=== PATIENT | female | born 1985 | race Caucasian/White ===

== ENCOUNTER 2018-02-06 12:43 | Emergency (ER) | payer OTHER ==
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
[2018-02-06 14:34] LABS: Appearance,Urine Clear (Clear); Bilirubin,Urine 1+ (Negative); Blood,Urine Small (Negative); Color,Urine Yellow; Glucose,Urine (UA) Negative (Negative); Ketones,Urine 2+ (Negative); Leukocyte Esterase,Urine Negative (Negative); Mucus,Urine Many /hpf; Nitrite,Urine Negative (Negative); Protein,Urine 1+ (Negative); RBC,Urine 5 /hpf (0-5); Specific Gravity,Urine 1.028 (1.001-1.035); Squamous Epithelial Cell,Urine 1 /hpf (0-4); WBC,Urine 2 /hpf (0-5)
[2018-02-06 14:50] LABS: Amphetamine Screen,Urine Detected (NotDetected); Barbiturate Screen,Urine Not Detected (NotDetected); Benzodiazepines Screen,Urine Not Detected (NotDetected); Cocaine Screen,Urine Not Detected (NotDetected); Methadone Screen, Urine Not Detected (NotDetected); Opiate Screen,Urine Not Detected (NotDetected); Oxycodone Screen, Urine Not Detected (NotDetected); Phencyclidine Screen,Urine Not Detected (NotDetected); Tricyclic Antidepressant,Urine Not Detected (NotDetected); Urn Cannabinoid Scrn Detected (NotDetected)
[2018-02-06] MEDS ORDERED: LORazepam 1 MG TAB PO STA (17:58)
[2018-02-06 18:11] VITALS: TEMP 97.8
[2018-02-06 19:31] VITALS: BP 107/67; PULSE 85; RESP 16
== END 2018-02-06 21:37 ==
LOC: EC 12:43
DX: F32.9 Major depressive disorder, single episode, unspecified (principal); R45.851 Suicidal ideations; F41.9 Anxiety disorder, unspecified; Z88.2 Allergy status to sulfonamides
CPT/HCPCS: 80306; 81001; 81025; 82075; 99285

== ENCOUNTER 2018-07-15 13:05 | Inpatient (IN) | payer MEDICAID, OTHER ==
[2018-07-15] MEDS ORDERED: KETOROLAC 30 MG/ML 1 ML VIAL IM STA (13:44)
--- NOTE | 2018-07-15 14:13 | ED ---
Psych HPI - General Chief Complaint: Psychiatric Symptoms Stated Complaint: Mental health Time Seen by Provider: 07/15/18 13:16 Source: patient, RN notes reviewed, old records reviewed Mode of arrival: ambulatory - History of Present Illness Initial Comments: Patient is a 33-year-old female who presents emergency Department today with complaints of suicidal ideation. Patient has had increased depression. Patient reports that she plans to hang herself. She is mother of 2 children. She was seen by her counselor today and sent here for evaluation purchase complaint of a headache. She requested IM pain medication. - Related Data Home Medications Medication Instructions Recorded Confirmed ARIPiprazole [Abilify] 2 mg PO DAILY 07/15/18 07/15/18 Cholecalciferol [Vitamin D3] 5,000 unit PO DAILY 07/15/18 07/15/18 Escitalopram [Lexapro] 30 mg PO DAILY 07/15/18 07/15/18 Mirtazapine [Remeron] 7.5 mg PO HS 07/15/18 07/15/18 Ranitidine HCl [Zantac] 150 mg PO BID 07/15/18 07/15/18 Allergies Allergy/AdvReac Type Severity Reaction Status Date / Time Sulfa (Sulfonamide Allergy Severe Itching Verified 07/15/18 13:33 Antibiotics) Review of Systems ROS Statement: Those systems with pertinent positive or pertinent negative responses have been documented in the HPI. ROS Other: All systems not noted in ROS Statement are negative. Past Medical History Past Medical History: No Reported History History of Any Multi-Drug Resistant Organisms: None Reported Past Surgical History: Tubal Ligation Additional Past Surgical History / Comment(s): KNEE SURGERY Past Psychological History: Anxiety, Depression Smoking Status: Never smoker Past Alcohol Use History: Rare Past Drug Use History: Marijuana General Exam - General Exam Comments Initial Comments: 33-year-old female. Alert and oriented. No distress. General: Well appearing, well nourished, in no distress. Oriented x 3, normal mood and affect . Ambulating without difficulty. Skin: Good turgor, no rash, unusual bruising or prominent lesions Hair: Normal texture and distribution. HEENT: Head: Normocephalic, atraumatic, no visible or palpable masses, depressions, or scaring. Mouth: Mucous membranes moist, no mucosal lesions. Teeth/Gums: No obvious caries or periodontal disease. No gingival inflammation or significant resorption. Pharynx: Mucosa non-inflamed, no tonsillar hypertrophy or exudate Neck: Supple, without lesions, bruits, or adenopathy, thyroid non-enlarged and non-tender Heart: No cardiomegaly or thrills; regular rate and rhythm, no murmur or gallop Lungs: Clear to auscultation and percussion Abdomen: Bowel sounds normal, no tenderness, organomegaly, masses, or hernia Back: Spine normal without deformity or tenderness, no CVA tenderness Extremities: No amputations or deformities, cyanosis, edema or varicosities, peripheral pulses intact Musculoskeletal: Normal gait and station. No misalignment, asymmetry, crepitation, defects, tenderness, masses, effusions, decreased range of motion, instability, atrophy or abnormal strength or tone in the head, neck, spine, ribs, pelvis or extremities. Neurologic: CN 2-12 normal. Sensation to pain, touch, and proprioception normal. DTRs normal in upper and lower extremities. No pathologic reflexes. Psychiatric: Oriented X3, intact recent and remote memory, Patient has flat affect. Depressed. Patient has suicidal ideation. Plans to hang herself. Limitations: no limitations Course Vital Signs 07/15/18 13:08 Temperature 97.5 F L Pulse Rate 82 Respiratory 16 Rate Blood Pressure 110/63 O2 Sat by Pulse 98 Oximetry Medical Decision Making - Medical Decision Making Patient is a 33-year-old female presents emergency Department today with complaints of suicidal ideation. She also complained of a migraine-like headache. History of migraines. Was given IM Toradol and Zofran. Patient was cleared and evaluated by EPS. EPS stated the Patient should be admitted. She will be to psychiatric unit. - Lab Data Lab Results 07/15/18 Range/Units 13:56 Urine Opiates Screen Not Detected (NotDetected) Ur Oxycodone Screen Not Detected (NotDetected) Urine Methadone Screen Not Detected (NotDetected) Ur Propoxyphene Screen Not Detected (NotDetected) Ur Barbiturates Screen Not Detected (NotDetected) U Tricyclic Antidepress Not Detected (NotDetected) Ur Phencyclidine Scrn Not Detected (NotDetected) Ur Amphetamines Screen Not Detected (NotDetected) U Methamphetamines Scrn Not Detected (NotDetected) U Benzodiazepines Scrn Not Detected (NotDetected) Urine Cocaine Screen Not Detected (NotDetected) U Marijuana (THC) Screen Detected H (NotDetected) Disposition Clinical Impression: Suicidal thoughts Disposition: ADMITTED IP TO THIS HOSP Condition: Stable Is patient prescribed a controlled substance at d/c from ED?: No Referrals: [facility] [Primary Care Provider] - 1-2 days Time of Disposition: 17:26
[2018-07-15 14:33] LABS: Amphetamine Screen,Urine Not Detected (NotDetected); Barbiturate Screen,Urine Not Detected (NotDetected); Benzodiazepines Screen,Urine Not Detected (NotDetected); Cocaine Screen,Urine Not Detected (NotDetected); Methadone Screen, Urine Not Detected (NotDetected); Opiate Screen,Urine Not Detected (NotDetected); Oxycodone Screen, Urine Not Detected (NotDetected); Phencyclidine Screen,Urine Not Detected (NotDetected); Tricyclic Antidepressant,Urine Not Detected (NotDetected); Urn Cannabinoid Scrn Detected (NotDetected)
[2018-07-15] MEDS ORDERED: ACETAMINOPHEN TAB 500 MG TAB PO STA (14:44)
[2018-07-15] MEDS ORDERED: ONDANSETRON 4 MG/2 ML VIAL IVP STA (14:44)
[2018-07-15] MEDS ORDERED: ONDANSETRON ODT 4 MG TAB PO STA (14:50)
[2018-07-15 19:31] VITALS: BMI 27.2
[2018-07-15] MEDS ORDERED: ZIPRASIDONE 20 MG VIAL IM PRN (19:31)
[2018-07-15] MEDS ORDERED: MAGNESIUM HYDROXIDE 2,400 MG/10 ML CUP PO PRN (19:31)
[2018-07-15] MEDS ORDERED: MAG HYDROX/AL HYDROX/SIMETH 30 ML CUP PO PRN (19:31)
[2018-07-15] MEDS ORDERED: LORazepam 2 MG/ML INJ IM PRN (19:36)
[2018-07-15] MEDS: FAMOTIDINE 20 MG TAB PO SCH (20:58)
[2018-07-15] MEDS: LORazepam 1 MG TAB PO PRN (20:59)
--- NOTE | 2018-07-16 07:06 | P.MDCNMH ---
History of Present Illness H&P Date: 07/16/18 Chief Complaint: Suicidal ideation 33-year-old female with history of depression Patient denies any medical history, denies any active medical complaints at this time. She admits that she felt that her depression is not well controlled and was having suicidal ideation she was planning on hanging herself. She has tried other methods in the past. So she decided to voluntarily come to the hospital seeking help. She claims to be compliant with all her medications despite that she feels that her depression has been increasing recently. Otherwise she denies any homicidal ideation. She didn't try anything to hurt herself this time and I was only thoughts. She otherwise denies any fevers or chills chest pain or coughing shortness of breath nausea vomiting or abdominal pain. Review of Systems Pertinent positives as noted in HPI. All other systems were reviewed and are negative Past Medical History Past Medical History: No Reported History History of Any Multi-Drug Resistant Organisms: None Reported Past Surgical History: Tubal Ligation Additional Past Surgical History / Comment(s): KNEE SURGERY Past Anesthesia/Blood Transfusion Reactions: No Reported Reaction Past Psychological History: Anxiety, Depression Smoking Status: Never smoker Past Alcohol Use History: Rare Past Drug Use History: Marijuana Additional Drug Use History / Comment(s): 3-4 times daily Medications and Allergies Home Medications Medication Instructions Recorded Confirmed Type ARIPiprazole [Abilify] 2 mg PO DAILY 07/15/18 07/15/18 History Cholecalciferol [Vitamin D3] 5,000 unit PO DAILY 07/15/18 07/15/18 History Escitalopram [Lexapro] 30 mg PO DAILY 07/15/18 07/15/18 History Mirtazapine [Remeron] 7.5 mg PO HS 07/15/18 07/15/18 History Ranitidine HCl [Zantac] 150 mg PO BID 07/15/18 07/15/18 History Allergies Allergy/AdvReac Type Severity Reaction Status Date / Time Sulfa (Sulfonamide Allergy Severe Dyspnea Verified 07/15/18 19:52 Antibiotics) Physical Exam Vitals: Vital Signs Temp Pulse Pulse Resp BP BP Pulse Ox 07/15/18 19:17 97.1 F L 75 16 105/70 07/15/18 18:45 97.1 F L 75 16 105/70 07/15/18 18:35 98.0 F 74 16 94/59 98 07/15/18 13:08 97.5 F L 82 16 110/63 98 Constitutional: No acute distress, conversant, pleasant Eyes: Anicteric sclerae, moist conjunctiva, no lid-lag Pupils equal round reactive to light ENMT: NC/AT Oropharynx clear, no erythema, or exudates Neck: Supple, FROM, no masses, or JVD No carotid bruits No thyromegaly Lungs: Clear to auscultation Clear to percussion Normal respiratory effort, no accessory muscle use Cardiovascular: Heart regular in rate and rhythm, No murmurs, gallops, or rubs No peripheral edema Abdominal: Soft Nontender, no guarding, rebound or rigidity Abdomen moving with respiration Normoactive bowel sounds No hepatomegaly, No splenomegaly No palpable mass No abdominal wall hernia noted Skin: Normal temperature, tone, texture, turgor No induration No subcutaneous nodules No rash, lesions No ulcers Extremities: No digital cyanosis No clubbing Pedal pulses intact and symmetrical Radial pulses intact and symmetrical No calf tenderness Psychiatric: Alert and oriented to person, place and time Depressed affect fair judgment Neuro Muscles Strength 5/5 in all 4 extremities Sensation to light touch grossly present throughout Cranial nerves II-XII grossly intact No focal sensory deficits Lymphatics: no palpable cervical or supraclavicular , or inguinal lymph nodes Cranial Nerve Examination - Cranial Nerves Cranial Nerve II- Optic: Intact Cranial Nerve III- Oculomotor: Intact Cranial Nerve IV- Trochlear: Intact Cranial Nerve V- Trigeminal: Intact Cranial Nerve - Abducens: Intact Cranial Nerve VII- Facial: Intact Cranial Nerve VIII- Auditory: Intact Cranial Nerve IX- Glossopharyngeal: Intact Cranial Nerve X- Vagus: Intact Cranial Nerve XI- Accessory: Intact Cranial Nerve XII- Hypoglossal: Intact Results Labs: Abnormal Lab Results - Last 24 Hours (Table) 07/15/18 Range/Units 13:56 U Marijuana (THC) Screen Detected H (NotDetected) Assessment and Plan Assessment: 33 year old female presented voluntarily due to suicidal ideation and uncontrolled depression. she denies any medical history otherwise, denies any active medical complaints at this time. Plan: depression and suicidal ideation managment per psych follow up labs Thank you for allowing us to participate in the care of this patient. We will follow peripherally. Do not hesitate to contact us with questions. Someone can be reached from the [facility] hospitalist group at all hours of the day at [phone].
[2018-07-16 08:34] LABS: Basophils % (A) 1 %; Eosinophils # (A) 0.2 k/uL (0-0.7); Eosinophils % (A) 3 %; HGB 13.4 gm/dL (11.4-16.0); Lymphocytes # (A) 1.6 k/uL (1.0-4.8); Lymphocytes % (A) 24 %; MCH 29.8 pg (25.0-35.0); MCHC 31.8 g/dL (31.0-37.0); MCV 93.8 fL (80.0-100.0); Mean Platelet Volume 7.5; Monocytes # (A) 0.4 k/uL (0-1.0); Monocytes % (A) 5 %; Neutrophils # (A) 4.5 k/uL (1.3-7.7); Neutrophils % (A) 67 %; Platelet Count 231 k/uL (150-450); RBC 4.48 m/uL (3.80-5.40); RDW 13.7 % (11.5-15.5); WBC 6.8 k/uL (3.8-10.6)
[2018-07-16] MEDS: ARIPiprazole 2 MG TAB PO SCH (08:51)
[2018-07-16] MEDS: FAMOTIDINE 20 MG TAB PO SCH ×2 (08:51→20:03)
[2018-07-16 08:56] LABS: ALT 20 U/L (9-52); AST 19 U/L (14-36); Albumin 3.7 g/dL (3.5-5.0); Alkaline Phosphatase 60 U/L (38-126); Anion Gap 6 mmol/L; Blood Urea Nitrogen 9 mg/dL (7-17); Calcium 9.5 mg/dL (8.4-10.2); Carbon Dioxide 26 mmol/L (22-30); Chloride 109 mmol/L (98-107); Cholesterol 151 mg/dL (<200); Glucose 88 mg/dL (74-99); HDL Cholesterol 44 mg/dL (40-60); LDL Cholesterol,Calculated 86 mg/dL (0-99); Potassium 4.5 mmol/L (3.5-5.1); Sodium 141 mmol/L (137-145); Total Bilirubin 0.6 mg/dL (0.2-1.3); Total Protein 6.8 g/dL (6.3-8.2); Triglycerides 105 mg/dL (<150)
[2018-07-16] MEDS ORDERED: ESCITALOPRAM 20 MG TAB PO SCH (09:00)
--- NOTE | 2018-07-16 12:09 | P.HP ---
Psychiatric H&P - . H&P Date: 07/16/18 History & Physical: Allergies Allergy/AdvReac Type Severity Reaction Status Date / Time Sulfa (Sulfonamide Allergy Severe Dyspnea Verified 07/15/18 19:52 Antibiotics) Vital Signs Temp 98.1 F 07/16/18 06:29 Pulse 92 07/16/18 06:29 Resp 16 07/16/18 06:29 BP 99/55 07/16/18 06:29 Pulse Ox 98 07/15/18 18:35 Intake & Output 07/15/18 07/16/18 07/16/18 18:59 06:59 18:59 Weight 63.503 kg Laboratory Last Values WBC 6.8 k/uL (3.8-10.6) 07/16/18 07:50 RBC 4.48 m/uL (3.80-5.40) 07/16/18 07:50 Hgb 13.4 gm/dL (11.4-16.0) 07/16/18 07:50 Hct 42.0 % (34.0-46.0) 07/16/18 07:50 MCV 93.8 fL (80.0-100.0) 07/16/18 07:50 MCH 29.8 pg (25.0-35.0) 07/16/18 07:50 MCHC 31.8 g/dL (31.0-37.0) 07/16/18 07:50 RDW 13.7 % (11.5-15.5) 07/16/18 07:50 Plt Count 231 k/uL (150-450) 07/16/18 07:50 Neutrophils % 67 % 07/16/18 07:50 Lymphocytes % 24 % 07/16/18 07:50 Monocytes % 5 % 07/16/18 07:50 Eosinophils % 3 % 07/16/18 07:50 Basophils % 1 % 07/16/18 07:50 Neutrophils # 4.5 k/uL (1.3-7.7) 07/16/18 07:50 Lymphocytes # 1.6 k/uL (1.0-4.8) 07/16/18 07:50 Monocytes # 0.4 k/uL (0-1.0) 07/16/18 07:50 Eosinophils # 0.2 k/uL (0-0.7) 07/16/18 07:50 Basophils # 0.0 k/uL (0-0.2) 07/16/18 07:50 Sodium 141 mmol/L (137-145) 07/16/18 07:50 Potassium 4.5 mmol/L (3.5-5.1) 07/16/18 07:50 Chloride 109 mmol/L (98-107) H 07/16/18 07:50 Carbon Dioxide 26 mmol/L (22-30) 07/16/18 07:50 Anion Gap 6 mmol/L 07/16/18 07:50 BUN 9 mg/dL (7-17) 07/16/18 07:50 Creatinine 0.84 mg/dL (0.52-1.04) 07/16/18 07:50 Est GFR (CKD-EPI)AfAm >90 (>60 ml/min/1.73 sqM) 07/16/18 07:50 Est GFR (CKD-EPI)NonAf >90 (>60 ml/min/1.73 sqM) 07/16/18 07:50 Glucose 88 mg/dL (74-99) 07/16/18 07:50 Calcium 9.5 mg/dL (8.4-10.2) 07/16/18 07:50 Total Bilirubin 0.6 mg/dL (0.2-1.3) 07/16/18 07:50 AST 19 U/L (14-36) 07/16/18 07:50 ALT 20 U/L (9-52) 07/16/18 07:50 Alkaline Phosphatase 60 U/L (38-126) 07/16/18 07:50 Total Protein 6.8 g/dL (6.3-8.2) 07/16/18 07:50 Albumin 3.7 g/dL (3.5-5.0) 07/16/18 07:50 Triglycerides 105 mg/dL (<150) 07/16/18 07:50 Cholesterol 151 mg/dL (<200) 07/16/18 07:50 LDL Cholesterol, Calc 86 mg/dL (0-99) 07/16/18 07:50 HDL Cholesterol 44 mg/dL (40-60) 07/16/18 07:50 TSH 1.770 mIU/L (0.465-4.680) 07/16/18 07:50 Urine Opiates Screen Not Detected (NotDetected) 07/15/18 13:56 Ur Oxycodone Screen Not Detected (NotDetected) 07/15/18 13:56 Urine Methadone Screen Not Detected (NotDetected) 07/15/18 13:56 Ur Propoxyphene Screen Not Detected (NotDetected) 07/15/18 13:56 Ur Barbiturates Screen Not Detected (NotDetected) 07/15/18 13:56 U Tricyclic Antidepress Not Detected (NotDetected) 07/15/18 13:56 Ur Phencyclidine Scrn Not Detected (NotDetected) 07/15/18 13:56 Ur Amphetamines Screen Not Detected (NotDetected) 07/15/18 13:56 U Methamphetamines Scrn Not Detected (NotDetected) 07/15/18 13:56 U Benzodiazepines Scrn Not Detected (NotDetected) 07/15/18 13:56 Urine Cocaine Screen Not Detected (NotDetected) 07/15/18 13:56 U Marijuana (THC) Screen Detected (NotDetected) H 07/15/18 13:56 Assessment and Plan Assessment: Patient is a 33-year-old female who presents emergency Department today with complaints of suicidal ideation. Patient has had increased depression. Patient reports that she plans to hang herself. She is mother of 2 children 9 yo/11yo. She was seen by her counselor today and sent here for evaluation purchase complaint of a headache. She requested IM pain medication. Pt presents stating she saw her counselor today who advised her to come in for evaluation. Pt does admit to feeling suicidal. pt states that she is here because of suicidal ideation. pt reports worsening suicidal ideation over the past 2-3 months. pt is tearful and reports guilt over not being able to perform parenting responsibilities with her worsening depression. pt had an appointment with Mirella her therapist at [facility] today and was recommended to come to ER after stating that she planned to hang herself pt reports that she thinks about hanging herself from her bedroom door with a belt almost daily and suicidal ideation has worsened in the last 2-3 months. pt reports loss of daily function due to lack of desire to get out of bed. pt states, "Most days I have to fight myself to get out of bed." pt also reports that she has been eating only once a day. - Related Data Home Medications Medication Instructions Recorded Confirmed ARIPiprazole [Abilify] 2 mg PO DAILY 07/15/18 07/15/18 Cholecalciferol [Vitamin D3] 5,000 unit PO DAILY 07/15/18 07/15/18 Escitalopram [Lexapro] 30 mg PO DAILY 07/15/18 07/15/18 Mirtazapine [Remeron] 7.5 mg PO HS 07/15/18 07/15/18 Ranitidine HCl [Zantac] 150 mg PO BID 07/15/18 07/15/18 Allergies Allergy/AdvReac Type Severity Reaction Status Date / Time Sulfa (Sulfonamide Allergy Severe Itching Verified 07/15/18 13:33 Antibiotics) Past Medical History Past Medical History: No Reported History History of Any Multi-Drug Resistant Organisms: None Reported Past Surgical History: Tubal Ligation Additional Past Surgical History / Comment(s): KNEE SURGERY Past Psychological History: Anxiety, Depression Smoking Status: Never smoker Past Alcohol Use History: Rare Past Drug Use History: Marijuana Musculoskeletal Examination - Abnormal/Involuntary Movements: [none Strength: [greater than antigravity (greater than/equal to 3/5) in all extremiti es, weakness:] Muscle Tone: [no impairment Gait: [grossly normal Station: [grossly normal Mental Status Examination - General Appearance: [casual, appears stated age Speech/Language: [spontaneous soft ] Attitude/Behavior: [guarded, withdrawn, indifferent] Mood: [ depressed, anxious, fearful, hopelessness] Affect: [flat, incongruent, blunted constricted] Orientation: [time, person, place situation] Thought Content: [wnl Risk Factors: [she is suicidal (ideations,with plan), and/or Homicidal (ideations, plan), other] Perception: [wnl (auditory, visual, tactile), other] Thought Processes: [ concrete, circumstantial Concentration/Attention Span: [impaired] [Per observation and interview with the patient] Recent Memory: [wnl 3 out of 3 in 3 minutes] Remote Memory: [wnl, ] [past events, as related history] Intelligence: [average] [based on history, based on vocabulary, syntax, grammar, and content] Judgement: [ fair] [per patient's behavior/history of present illness] Insight: [ fair] [understanding severity of illness/history of present illness] Admitting Diagnosis: [major depressive disorder-recurrent/severe with suicidal ideation] Patient Strengths - Steady employment/financial stability: [x] Housing stability: [x] Able to vocalize needs: [x] Values and traditions: [x] Patient Limitations: [medication, non-compliance,lack of social supports] Initial Plan of Care: [She was admitted on a formal voluntary to [address] [place] [address] unit at [facility]. She will be placed on 15 minute checks and usual protocol for the unit. A thorough biopsychosocial history of will be completed during her hospitalization. She will be evaluated by medicine, psychiatry, nursing staff, social work and occupational therapy. She is complaining that the antidepressants that she is used in the past have not been effective and she feels that she's been nonadherent to medical treatment p neris. We discussed the importance of medications and she has symptoms of major aggressive disorder with poor concentration and isolation her main issues. Therefore venlafaxine 37.5 mg XR will be used by mouth daily at bedtime with the titration to 225 mg or 300 mg by mouth daily at bedtime. She was taken off her Lexapro and no Remeron was added as well. In team will discuss disposition and discharge plans.] Estimated Length of Stay: [7 days] Initial Discharge Plan: [[facility] Prognosis: [fair] Justification for Inpatient Hospitalization - [ anxiety, depression resulting in significant loss of functioning.] [Dangerous to self, others, or property with need for controlled environment.] [Emotional or behavioral conditions and complications requiring 24 hour medical and nursing care.] [Need for special drug therapy, or other therapeutic program requiring continuous hospitalization.] [Failure of social or occupational functioning.] [Inability to meet basic life and health needs.] Time with Patient: Greater than 30
[2018-07-16] MEDS: CHOLECALCIFEROL 1,000 UNIT TAB PO SCH (12:25)
[2018-07-16] MEDS ORDERED: VENLAFAXINE HCL ER 37.5 MG CAP PO SCH (21:00)
[2018-07-16] MEDS: LORazepam 1 MG TAB PO PRN (22:45)
[2018-07-17] MEDS: ARIPiprazole 2 MG TAB PO SCH (08:28)
[2018-07-17] MEDS: FAMOTIDINE 20 MG TAB PO SCH ×2 (08:28→21:01)
--- NOTE | 2018-07-17 11:41 | P.PN ---
Subjective Progress Note Date: 07/17/18 Principal diagnosis: major depressive disorder-recurrent/severe with suicidal ideation 07/17/2018: Chart reviewed, discussed in team today, discussed with social work disposition discharge plans. Patient was interviewed in my office as she was walking down the hallway and she stated she had difficulty with sleep last night and felt better after she took a Ativan. Discussed other symptoms she may have which includes when she is trying down she has restless leg syndrome or feet or is going and she has difficult time on focusing to be able grossly. She has mild suicidal ideation today with no plan. She denies auditory or visual hallucinations. Objective - Vital Signs Vital signs: Vital Signs Temp 98.4 F 07/17/18 06:44 Pulse 72 07/17/18 06:44 Resp 16 07/17/18 06:44 BP 107/53 07/17/18 06:44 Pulse Ox 98 07/15/18 18:35 - Labs CBC & Chem 7: 07/16/18 07:50 07/16/18 07:50 Assessment and Plan Assessment: Patient is a 33-year-old female who presents emergency Department today with complaints of suicidal ideation. Patient has had increased depression. Patient reports that she plans to hang herself. She is mother of 2 children 9 yo/11yo. She was seen by her counselor today and sent here for evaluation purchase complaint of a headache. She requested IM pain medication. Pt presents stating she saw her counselor today who advised her to come in for evaluation. Pt does admit to feeling suicidal. pt states that she is here because of suicidal ideation. pt reports worsening suicidal ideation over the past 2-3 months. pt is tearful and reports guilt over not being able to perform parenting responsibilities with her worsening depression. pt had an appointment with Mirella her therapist at [facility] today and was recommended to come to ER after stating that she planned to hang herself pt reports that she thinks about hanging herself from her bedroom door with a belt almost daily and suicidal ideation has worsened in the last 2-3 months. pt reports loss of daily function due to lack of desire to get out of bed. pt states, "Most days I have to fight myself to get out of bed." pt also reports that she has been eating only once a day. - Related Data Home Medications Medication Instructions Recorded Confirmed ARIPiprazole [Abilify] 2 mg PO DAILY 07/15/18 07/15/18 Cholecalciferol [Vitamin D3] 5,000 unit PO DAILY 07/15/18 07/15/18 Escitalopram [Lexapro] 30 mg PO DAILY 07/15/18 07/15/18 Mirtazapine [Remeron] 7.5 mg PO HS 07/15/18 07/15/18 Ranitidine HCl [Zantac] 150 mg PO BID 07/15/18 07/15/18 Allergies Allergy/AdvReac Type Severity Reaction Status Date / Time Sulfa (Sulfonamide Allergy Severe Itching Verified 07/15/18 13:33 Antibiotics) Past Medical History Past Medical History: No Reported History History of Any Multi-Drug Resistant Organisms: None Reported Past Surgical History: Tubal Ligation Additional Past Surgical History / Comment(s): KNEE SURGERY Past Psychological History: Anxiety, Depression Smoking Status: Never smoker Past Alcohol Use History: Rare Past Drug Use History: Marijuana Musculoskeletal Examination - Abnormal/Involuntary Movements: [none Strength: [greater than antigravity (greater than/equal to 3/5) in all extremities, weakness:] Muscle Tone: [no impairment Gait: [grossly normal Station: [grossly normal Mental Status Examination - General Appearance: [casual, appears stated age Speech/Language: [spontaneous soft ] Attitude/Behavior: [guarded, withdrawn, indifferent] Mood: [ depressed, anxious, fearful, hopelessness] Affect: [flat, incongruent, blunted constricted] Orientation: [time, person, place situation] Thought Content: [wnl Risk Factors: [she is suicidal (ideations,with plan), and/or Homicidal (ideations, plan), other] Perception: [wnl (auditory, visual, tactile), other] Thought Processes: [ concrete, circumstantial Concentration/Attention Span: [impaired] [Per observation and interview with the patient] Recent Memory: [wnl 3 out of 3 in 3 minutes] Remote Memory: [wnl, ] [past events, as related history] Intelligence: [average] [based on history, based on vocabulary, syntax, grammar, and content] Judgement: [ fair] [per patient's behavior/history of present illness] Insight: [ fair] [understanding severity of illness/history of present illness] Admitting Diagnosis: [major depressive disorder-recurrent/severe with suicidal ideation] Patient Strengths - Steady employment/financial stability: [x] Housing stability: [x] Able to vocalize needs: [x] Values and traditions: [x] Patient Limitations: [medication, non-compliance,lack of social supports] Initial Plan of Care: [She was admitted on a formal voluntary to 3 [place] [facility] at [facility]. She will be placed on 15 minute checks and usual protocol for the unit. A thorough biopsychosocial history of will be completed during her hospitalization. She will be evaluated by medicine, psychiatry, nursing staff, social work and occupational therapy. She is complaining that the antidepressants that she is used in the past have not been effective and she feels that she's been nonadherent to medical treatment plan. We discussed the importance of medications and she has symptoms of major aggressive disorder with poor concentration and isolation her main issues. The refore venlafaxine 37.5 mg XR will be used by mouth daily at bedtime with the titration to 225 mg or 300 mg by mouth daily at bedtime. She was taken off her Lexapro and no Remeron was added as well. In team will discuss disposition and discharge plans. 07/17/2018: She still has symptoms of anxiety and depression and difficulty sleeping with multiple somatic complaints. We'll increase her Effexor from 37.5-75 mg XR by mouth daily at bedtime. We'll add Mirapex 0.5 mg by mouth daily at bedtime for restless leg syndrome. We'll maintain and Abilify 2 mg by mouth daily at bedtime. Continue doing 15 minute checks and encourage her to go to groups and be integrated [facility]. Environment] (1) Major depressive disorder with psychotic features Current Visit: Yes Status: Acute Priority: Medium Code(s): F32.3 - MAJOR DEPRESSV DISORD, SINGLE EPSD, SEVERE W PSYCH FEATURES SNOMED Code(s): 57808292 Time with Patient: Less than 30
[2018-07-17] MEDS: CHOLECALCIFEROL 1,000 UNIT TAB PO SCH (12:18)
[2018-07-17 13:03] LABS: Appearance,Urine Clear (Clear); Bilirubin,Urine Negative (Negative); Blood,Urine Negative (Negative); Color,Urine Light Yellow; Glucose,Urine (UA) Negative (Negative); Ketones,Urine Negative (Negative); Leukocyte Esterase,Urine Negative (Negative); Nitrite,Urine Negative (Negative); Protein,Urine Negative (Negative); Specific Gravity,Urine 1.011 (1.001-1.035); Urobilinogen,Urine <2.0 mg/dL (<2.0)
[2018-07-17 18:59] LABS: Urine Alcohol Negative (Negative); Urine Barbiturate Negative (Negative); Urine Cocaine Negative (Negative); Urine Methadone Negative (Negative); Urine Opiates Negative (Negative); Urine Phencyclidine Negative (Negative)
[2018-07-17] MEDS ORDERED: VENLAFAXINE HCL ER 75 MG CAP PO SCH (21:00)
[2018-07-17] MEDS: PRAMIPEXOLE 0.5 MG TAB PO SCH (21:01)
[2018-07-17] MEDS: ACETAMINOPHEN TAB 325 MG TAB PO PRN (23:38)
[2018-07-18] MEDS: FAMOTIDINE 20 MG TAB PO SCH ×2 (08:05→21:34)
[2018-07-18] MEDS: ARIPiprazole 2 MG TAB PO SCH (08:05)
--- NOTE | 2018-07-18 12:33 | P.PN ---
Subjective Progress Note Date: 07/18/18 Principal diagnosis: major depressive disorder-recurrent/severe with suicidal ideation 07/17/2018: Chart reviewed, discussed in team today, discussed with social work disposition discharge plans. Patient was interviewed in my office as she was walking down the hallway and she stated she had difficulty with sleep last night and felt better after she took a Ativan. Discussed other symptoms she may have which includes when she is trying down she has restless leg syndrome or feet or is going and she has difficult time on focusing to be able grossly. She has mild suicidal ideation today with no plan. She denies auditory or visual hallucinations. 07/18/2018: Chart reviewed and discussed in team today regarding progress and discharge plans. Patient was interviewed in my office and was walking down the hallway stated she had difficulty sleeping last night due to her roommate who snored and was changed to a different room. She states that she still has de pressive symptoms and still has restless leg syndrome and still remains anxious and fearful. She denies any auditory or visual hallucinations. She denies any current suicidal plan. Objective - Vital Signs Vital signs: Vital Signs Temp 98.9 F 07/18/18 03:34 Pulse 83 07/18/18 03:34 Resp 15 07/18/18 03:34 BP 115/78 07/18/18 03:34 Pulse Ox 98 07/15/18 18:35 - Labs CBC & Chem 7: 07/16/18 07:50 07/16/18 07:50 Labs: Abnormal Lab Results - Last 24 Hours (Table) 07/17/18 Range/Units 11:20 U Cannabinoids Screen Positive H (Negative) ng/mL Assessment and Plan Assessment: Patient is a 33-year-old female who presents emergency Department today with complaints of suicidal ideation. Patient has had increased depression. Patient reports that she plans to hang herself. She is mother of 2 children 9 yo/11yo. She was seen by her counselor today and sent here for evaluation purchase complaint of a headache. She requested IM pain medication. Pt presents stating she saw her counselor today who advised her to come in for evaluation. Pt does admit to feeling suicidal. pt states that she is here because of suicidal ideation. pt reports worsening suicidal ideation over the past 2-3 months. pt is tearful and reports guilt over not being able to perform parenting responsibilities with her worsening depression. pt had an appointment with Mirella daugherty therapist at [facility] today and was recommended to come to ER after stating that she planned to hang herself pt reports that she thinks about hanging herself from her bedroom door with a belt almost daily and suicidal ideation has worsened in the last 2-3 months. pt reports loss of daily function due to lack of desire to get out of bed. pt states, "Most days I have to fight myself to get out of bed." pt also reports that she has been eating only once a day. - Related Data Home Medications Medication Instructions Recorded Confirmed ARIPiprazole [Abilify] 2 mg PO DAILY 07/15/18 07/15/18 Cholecalciferol [Vitamin D3] 5,000 unit PO DAILY 07/15/18 07/15/18 Escitalopram [Lexapro] 30 mg PO DAILY 07/15/18 07/15/18 Mirtazapine [Remeron] 7.5 mg PO HS 07/15/18 07/15/18 Ranitidine HCl [Zantac] 150 mg PO BID 07/15/18 07/15/18 Allergies Allergy/AdvReac Type Severity Reaction Status Date / Time Sulfa (Sulfonamide Allergy Severe Itching Verified 07/15/18 13:33 Antibiotics) Past Medical History Past Medical History: No Reported History History of Any Multi-Drug Resistant Organisms: None Reported Past Surgical History: Tubal Ligation Additional Past Surgical History / Comment(s): KNEE SURGERY Past Psychological History: Anxiety, Depression Smoking Status: Never smoker Past Alcohol Use History: Rare Past Drug Use History: Marijuana Musculoskeletal Examination - Abnormal/Involuntary Movements: [none Strength: [greater than antigravity (greater than/equal to 3/5) in all extremities, weakness:] Muscle Tone: [no impairment Gait: [grossly normal Station: [grossly normal Mental Status Examination - General Appearance: [casual, appears stated age Speech/Language: [spontaneous soft ] Attitude/Behavior: [guarded, withdrawn, indifferent] Mood: [ depressed, anxious, fearful, hopelessness] Affect: [flat, incongruent, blunted constricted] Orientation: [time, person, place situation] Thought Content: [wnl Risk Factors: [she is suicidal (ideations,with plan), and/or Homicidal (ideations, plan), other] Perception: [wnl (auditory, visual, tactile), other] Thought Processes: [ concrete, circumstantial Concentration/Attention Span: [impaired] [Per observation and interview with the patient] Recent Memory: [wnl 3 out of 3 in 3 minutes] Remote Memory: [wnl, ] [past events, as related history] Intelligence: [average] [based on history, based on vocabulary, syntax, grammar, and content] Judgement: [ fair] [per patient's behavior/history of present illness] Insight: [ fair] [understanding severity of illness/history of present illness] Admitting Diagnosis: [major depressive disorder-recurrent/severe with suicidal ideation] Patient Strengths - Steady employment/financial stability: [x] Housing stability: [x] Able to vocalize needs: [x] Values and traditions: [x] Patient Limitations: [medication, non-compliance,lack of social supports] Initial Plan of Care: [She was admitted on a formal voluntary to [facility] unit at [facility]. She will be placed on 15 minute checks and usual protocol for the unit. A thorough biopsychosocial history of will be completed during her hospitalization. She will be evaluated by medicine, psychiatry, nursing staff, social work and occupational therapy. She is complaining that the antidepressants that she is used in the past have not been effective and she feels that she's been nonadherent to medical treatment plan. We discussed the importance of medications and she has symptoms of major aggressive disorder with poor concentration and isolation her main issues. Therefore venlafaxine 37.5 mg XR will be used by mouth daily at bedtime with the titration to 225 mg or 300 mg by mouth daily at bedtime. She was taken off her Lexapro and no Remeron was added as well. In team will discuss disposition and discharge plans. 07/17/2018: She still has symptoms of anxiety and depression and difficulty sleeping with multiple somatic complaints. We'll increase her Effexor from 37.5-75 mg XR by mouth daily at bedtime. We'll add Mirapex 0.5 mg by mouth daily at bedtime for restless leg syndrome. We'll maintain and Abilify 2 mg by mouth daily at bedtime. Continue doing 15 minute checks and encourage her to go to groups and be integrated [facility]. Environment 07/18/2018: She still has symptoms of anxiety and depression and difficulty with sleep and numerous somatic complaints which appeared to be fibromyalgia type pain. Increase her Effexor 150 mg XR and maintain Mirapex and Abilify at current level. She remains on 15 minute checks for suicide precaution usual protocol for mental health unit 3 [facility]] (1) Major depressive disorder with psychotic features Current Visit: Yes Status: Acute Priority: Medium Code(s): F32.3 - MAJOR DEPRESSV DISORD, SINGLE EPSD, SEVERE W PSYCH FEATURES SNOMED Code(s): 89390893 Time with Patient: Less than 30
[2018-07-18] MEDS: CHOLECALCIFEROL 1,000 UNIT TAB PO SCH (12:49)
[2018-07-18] MEDS: VENLAFAXINE HCL ER 150 MG CAP PO SCH (21:35)
[2018-07-18] MEDS: ACETAMINOPHEN TAB 325 MG TAB PO PRN (21:35)
[2018-07-18] MEDS: PRAMIPEXOLE 0.5 MG TAB PO SCH (22:23)
[2018-07-19] MEDS: FAMOTIDINE 20 MG TAB PO SCH ×2 (08:35→21:37)
[2018-07-19] MEDS: ARIPiprazole 2 MG TAB PO SCH (08:35)
[2018-07-19] MEDS: CHOLECALCIFEROL 1,000 UNIT TAB PO SCH (13:08)
--- NOTE | 2018-07-19 19:59 | P.PN ---
Subjective Progress Note Date: 07/19/18 Principal diagnosis: Major Depressive Disorder, severe recurrent Major Depressive Disorder, severe recurrent Found her in very depressed mood. Isolating and withdrawing. Reports feeling suicidal no. Feels safe on unit. Medication complaint and tolerating them well. Working on her coping skills. Denies hearing any voices or seeing things. Did sleep better last night MSE :AAOx 4. fair eye contact. Mood depressed. Has suicidal ideation. No psychoses. Insight and judgment improving Major Depression Will continue to adjust medications accordingly Objective - Vital Signs Vital signs: Vital Signs Temp 98.6 F 07/19/18 00:10 Pulse 76 07/19/18 00:10 Resp 14 07/19/18 00:10 BP 123/73 07/19/18 00:10 Pulse Ox 98 07/15/18 18:35 - Labs CBC & Chem 7: 07/16/18 07:50 07/16/18 07:50
[2018-07-19] MEDS: PRAMIPEXOLE 0.5 MG TAB PO SCH (21:37)
[2018-07-19] MEDS: VENLAFAXINE HCL ER 150 MG CAP PO SCH (21:37)
[2018-07-19] MEDS: ACETAMINOPHEN TAB 325 MG TAB PO PRN (21:39)
[2018-07-20] MEDS: LORazepam 1 MG TAB PO PRN (02:51)
[2018-07-20] MEDS: CHOLECALCIFEROL 1,000 UNIT TAB PO SCH (08:36)
[2018-07-20] MEDS: FAMOTIDINE 20 MG TAB PO SCH ×2 (08:36→21:00)
[2018-07-20] MEDS: ARIPiprazole 2 MG TAB PO SCH (08:36)
--- NOTE | 2018-07-20 12:02 | P.PN ---
Subjective Progress Note Date: 07/20/18 Principal diagnosis: Major Depressive Disorder, severe recurrent Major Depressive Disorder, severe recurrent Found her in her room. Easily aroused from sleep. Reports feeling tired and fatigued. Still very depressed and anxious. Reports feeling suicidal but Feels safe on unit. Medication complaint and tolerating them well. Working on her coping skills. Denies hearing any voices or seeing things. Did sleep better last night MSE :AAOx 4. fair eye contact. Mood depressed. Has suicidal ideation. No psychoses. Insight and judgment improving Major Depression Will continue to adjust medications accordingly Objective - Vital Signs Vital signs: Vital Signs Temp 97.8 F 07/20/18 02:45 Pulse 102 H 07/20/18 02:45 Resp 18 07/20/18 02:45 BP 116/65 07/20/18 02:45 Pulse Ox 98 07/15/18 18:35 Intake & Output 07/19/18 07/20/18 07/20/18 18:59 06:59 18:59 Weight 65.791 kg - Labs CBC & Chem 7: 07/16/18 07:50 07/16/18 07:50
[2018-07-20] MEDS: ACETAMINOPHEN TAB 325 MG TAB PO PRN (15:31)
[2018-07-20] MEDS: PRAMIPEXOLE 0.5 MG TAB PO SCH (21:00)
[2018-07-20] MEDS: VENLAFAXINE HCL ER 150 MG CAP PO SCH (21:00)
[2018-07-21] MEDS: FAMOTIDINE 20 MG TAB PO SCH ×2 (08:33→20:32)
[2018-07-21] MEDS: ARIPiprazole 2 MG TAB PO SCH (08:33)
[2018-07-21] MEDS: CHOLECALCIFEROL 1,000 UNIT TAB PO SCH (12:12)
--- NOTE | 2018-07-21 12:51 | P.PN ---
Subjective Progress Note Date: 07/21/18 Principal diagnosis: major depressive disorder-recurrent/severe with suicidal ideation 07/17/2018: Chart reviewed, discussed in team today, discussed with social work disposition discharge plans. Patient was interviewed in my office as she was walking down the hallway and she stated she had difficulty with sleep last night and felt better after she took a Ativan. Discussed other symptoms she may have which includes when she is trying down she has restless leg syndrome or feet or is going and she has difficult time on focusing to be able grossly. She has mild suicidal ideation today with no plan. She denies auditory or visual hallucinations. 07/18/2018: Chart reviewed and discussed in team today regarding progress and discharge plans. Patient was interviewed in my office and was walking down the hallway stated she had difficulty sleeping last night due to her roommate who snored and was changed to a different room. She states that she still has de pressive symptoms and still has restless leg syndrome and still remains anxious and fearful. She denies any auditory or visual hallucinations. She denies any current suicidal plan. 07/21/2008: Chart reviewed, discussed in team today, disposition discharge plans were evaluated. Patient was interviewed in my office was walking down the hallway stated that she had difficulty sleeping again last night and used Ativan. She also still has restless leg syndrome and still remains anxious but to a lesser degree. She also states that her depression has gotten better 2 out of 10. When discussing her fianc she becomes tearful as it relates to the loss of her father who stated he was done with her at age 11 and she has not had a relationship with him since in the last 22 years. Objective - Vital Signs Vital signs: Vital Signs Temp 97.7 F 07/21/18 05:57 Pulse 94 07/21/18 05:57 Resp 16 07/21/18 05:57 BP 110/72 07/21/18 05:57 Pulse Ox 98 07/15/18 18:35 Intake & Output 07/20/18 07/21/18 07/21/18 18:59 06:59 18:59 Weight 65.791 kg - Labs CBC & Chem 7: 07/16/18 07:50 07/16/18 07:50 Assessment and Plan Assessment: Patient is a 33-year-old female who presents emergency Department today with complaints of suicidal ideation. Patient has had increased depression. Patient reports that she plans to hang herself. She is mother of 2 children 9 yo/11yo. She was seen by her counselor today and sent here for evaluation purchase complaint of a headache. She requested IM pain medication. Pt presents stating she saw her counselor today who advised her to come in for evaluation. Pt does admit to feeling suicidal. pt states that she is here because of suicidal ideation. pt reports worsening suicidal ideation over the past 2-3 months. pt is tearful and reports guilt over not being able to perform parenting responsibilities with her worsening depression. pt had an appointment with Mirella daugherty therapist at [facility] today and was recommended to come to ER after stating that she planned to hang herself pt reports that she thinks about hanging herself from her bedroom door with a belt almost daily and suicidal ideation has worsened in the last 2-3 months. pt reports loss of daily function due to lack of desire to get out of bed. pt states, "Most days I have to fight myself to get out of bed." pt also reports that she has been eating only once a day. - Related Data Home Medications Medication Instructions Recorded Confirmed ARIPiprazole [Abilify] 2 mg PO DAILY 07/15/18 07/15/18 Cholecalciferol [Vitamin D3] 5,000 unit PO DAILY 07/15/18 07/15/18 Escitalopram [Lexapro] 30 mg PO DAILY 07/15/18 07/15/18 Mirtazapine [Remeron] 7.5 mg PO HS 07/15/18 07/15/18 Ranitidine HCl [Zantac] 150 mg PO BID 07/15/18 07/15/18 Allergies Allergy/AdvReac Type Severity Reaction Status Date / Time Sulfa (Sulfonamide Allergy Severe Itching Verified 07/15/18 13:33 Antibiotics) Past Medical History Past Medical History: No Reported History History of Any Multi-Drug Resistant Organisms: None Reported Past Surgical History: Tubal Ligation Additional Past Surgical History / Comment(s): KNEE SURGERY Past Psychological History: Anxiety, Depression Smoking Status: Never smoker Past Alcohol Use History: Rare Past Drug Use History: Marijuana Musculoskeletal Examination - Abnormal/Involuntary Movements: [none Strength: [greater than antigravity (greater than/equal to 3/5) in all extremities, weakness:] Muscle Tone: [no impairment Gait: [grossly normal Station: [grossly normal Mental Status Examination - General Appearance: [casual, appears stated age Speech/Language: [spontaneous soft ] Attitude/Behavior: [guarded, withdrawn, indifferent] Mood: [ depressed, anxious, fearful, hopelessness] Affect: [flat, incongruent, blunted constricted] Orientation: [time, person, place situation] Thought Content: [wnl Risk Factors: [she is suicidal (ideations,with plan), and/or Homicidal (ideations, plan), other] Perception: [wnl (auditory, visual, tactile), other] Thought Processes: [ concrete, circumstantial Concentration/Attention Span: [impaired] [Per observation and interview with the patient] Recent Memory: [wnl 3 out of 3 in 3 minutes] Remote Memory: [wnl, ] [past events, as related history] Intelligence: [average] [based on history, based on vocabulary, syntax, grammar, and content] Judgement: [ fair] [per patient's behavior/history of present illness] Insight: [ fair] [understanding severity of illness/history of present illness] Admitting Diagnosis: [major depressive disorder-recurrent/severe with suicidal ideation] Patient Strengths - Steady employment/financial stability: [x] Housing stability: [x] Able to vocalize needs: [x] Values and traditions: [x] Patient Limitations: [medication, non-compliance,lack of social supports] Initial Plan of Care: [She was admitted on a formal voluntary to 3 [facility] unit at [facility]. She will be placed on 15 minute checks and usual protocol for the unit. A thorough biopsychosocial history of will be completed during her hospitalization. She will be evaluated by medici ne, psychiatry, nursing staff, social work and occupational therapy. She is complaining that the antidepressants that she is used in the past have not been effective and she feels that she's been nonadherent to medical treatment plan. We discussed the importance of medications and she has symptoms of major aggressive disorder with poor concentration and isolation her main issues. Therefore venlafaxine 37.5 mg XR will be used by mouth daily at bedtime with the titration to 225 mg or 300 mg by mouth daily at bedtime. She was taken off her Lexapro and no Remeron was added as well. In team will discuss disposition and discharge plans. 07/17/2018: She still has symptoms of anxiety and depression and difficulty sleeping with multiple somatic complaints. We'll increase her Effexor from 37. 5-75 mg XR by mouth daily at bedtime. We'll add Mirapex 0.5 mg by mouth daily at bedtime for restless leg syndrome. We'll maintain and Abilify 2 mg by mouth daily at bedtime. Continue doing 15 minute checks and encourage her to go to groups and be integrated [facility]. Environment 07/18/2018: She still has symptoms of anxiety and depression and difficulty with sleep and numerous somatic complaints which appeared to be fibromyalgia type pain. Increase her Effexor 150 mg XR and maintain Mirapex and Abilify at current level. She remains on 15 minute checks for suicide precaution usual pr otocol for mental health unit 3 [facility] 07/21/2018: Today she was tearful and sad and crying regarding the relationship that she is lost with her father. I will increase her Effexor to 225 mg XR by mouth daily at bedtime and will increase her Mirapex to 1.5 mg by mouth daily at bedtime. She will remain on 15 minute checks and precautions as per protocol for mental health unit 3 [facility]] (1) Major depressive disorder with psychotic features Current Visit: Yes Status: Acute Priority: Medium Code(s): F32.3 - MAJOR DEPRESSV DISORD, SINGLE EPSD, SEVERE W PSYCH FEATURES SNOMED Code(s): 66775061 Time with Patient: Greater than 30
[2018-07-21] MEDS ORDERED: PRAMIPEXOLE 0.5 MG TAB PO SCH (21:00)
[2018-07-21] MEDS ORDERED: VENLAFAXINE HCL ER 75 MG CAP PO SCH (21:00)
[2018-07-22] MEDS: LORazepam 1 MG TAB PO PRN (01:06)
[2018-07-22 01:08] VITALS: BP 116/64; PULSE 127; RESP 14; TEMP 98.7
[2018-07-22] MEDS: FAMOTIDINE 20 MG TAB PO SCH (08:48)
[2018-07-22] MEDS: ARIPiprazole 2 MG TAB PO SCH (08:48)
--- NOTE | 2018-07-22 11:09 | P.DS ---
Providers Date of admission: 07/15/18 17:55 Expected date of discharge: 07/22/18 Attending physician: Jesse Rosenbaum DO Consults: 07/15/18 19:31 Consult Physician Routine Consulting Provider: Geovani Lewis Consult Reason/Comments: H&P and medical Do you want consulting provider notified?: Yes Primary care physician: [facility] Diagnosis(es) (1) Major depressive disorder with psychotic features Allergies Allergy/AdvReac Type Severity Reaction Status Date / Time Sulfa (Sulfonamide Allergy Severe Dyspnea Verified 07/15/18 19:52 Antibiotics) Vital Signs Temp 98.1 F 07/16/18 06:29 Pulse 92 07/16/18 06:29 Resp 16 07/16/18 06:29 BP 99/55 07/16/18 06:29 Pulse Ox 98 07/15/18 18:35 Intake & Output 07/15/18 07/16/18 07/16/18 18:59 06:59 18:59 Weight 63.503 kg Laboratory Last Values WBC 6.8 k/uL (3.8-10.6) 07/16/18 07:50 RBC 4.48 m/uL (3.80-5.40) 07/16/18 07:50 Hgb 13.4 gm/dL (11.4-16.0) 07/16/18 07:50 Hct 42.0 % (34.0-46.0) 07/16/18 07:50 MCV 93.8 fL (80.0-100.0) 07/16/18 07:50 MCH 29.8 pg (25.0-35.0) 07/16/18 07:50 MCHC 31.8 g/dL (31.0-37.0) 07/16/18 07:50 RDW 13.7 % (11.5-15.5) 07/16/18 07:50 Plt Count 231 k/uL (150-450) 07/16/18 07:50 Neutrophils % 67 % 07/16/18 07:50 Lymphocytes % 24 % 07/16/18 07:50 Monocytes % 5 % 07/16/18 07:50 Eosinophils % 3 % 07/16/18 07:50 Basophils % 1 % 07/16/18 07:50 Neutrophils # 4.5 k/uL (1.3-7.7) 07/16/18 07:50 Lymphocytes # 1.6 k/uL (1.0-4.8) 07/16/18 07:50 Monocytes # 0.4 k/uL (0-1.0) 07/16/18 07:50 Eosinophils # 0.2 k/uL (0-0.7) 07/16/18 07:50 Basophils # 0.0 k/uL (0-0.2) 07/16/18 07:50 Sodium 141 mmol/L (137-145) 07/16/18 07:50 Potassium 4.5 mmol/L (3.5-5.1) 07/16/18 07:50 Chloride 109 mmol/L (98-107) H 07/16/18 07:50 Carbon Dioxide 26 mmol/L (22-30) 07/16/18 07:50 Anion Gap 6 mmol/L 07/16/18 07:50 BUN 9 mg/dL (7-17) 07/16/18 07:50 Creatinine 0.84 mg/dL (0.52-1.04) 07/16/18 07:50 Est GFR (CKD-EPI)AfAm >90 (>60 ml/min/1.73 sqM) 07/16/18 07:50 Est GFR (CKD-EPI)NonAf >90 (>60 ml/min/1.73 sqM) 07/16/18 07:50 Glucose 88 mg/dL (74-99) 07/16/18 07:50 Calcium 9.5 mg/dL (8.4-10.2) 07/16/18 07:50 Total Bilirubin 0.6 mg/dL (0.2-1.3) 07/16/18 07:50 AST 19 U/L (14-36) 07/16/18 07:50 ALT 20 U/L (9-52) 07/16/18 07:50 Alkaline Phosphatase 60 U/L (38-126) 07/16/18 07:50 Total Protein 6.8 g/dL (6.3-8.2) 07/16/18 07:50 Albumin 3.7 g/dL (3.5-5.0) 07/16/18 07:50 Triglycerides 105 mg/dL (<150) 07/16/18 07:50 Cholesterol 151 mg/dL (<200) 07/16/18 07:50 LDL Cholesterol, Calc 86 mg/dL (0-99) 07/16/18 07:50 HDL Cholesterol 44 mg/dL (40-60) 07/16/18 07:50 TSH 1.770 mIU/L (0.465-4.680) 07/16/18 07:50 Urine Opiates Screen Not Detected (NotDetected) 07/15/18 13:56 Ur Oxycodone Screen Not Detected (NotDetected) 07/15/18 13:56 Urine Methadone Screen Not Detected (NotDetected) 07/15/18 13:56 Ur Propoxyphene Screen Not Detected (NotDetected) 07/15/18 13:56 Ur Barbiturates Screen Not Detected (NotDetected) 07/15/18 13:56 U Tricyclic Antidepress Not Detected (NotDetected) 07/15/18 13:56 Ur Phencyclidine Scrn Not Detected (NotDetected) 07/15/18 13:56 Ur Amphetamines Screen Not Detected (NotDetected) 07/15/18 13:56 U Methamphetamines Scrn Not Detected (NotDetected) 07/15/18 13:56 U Benzodiazepines Scrn Not Detected (NotDetected) 07/15/18 13:56 Urine Cocaine Screen Not Detected (NotDetected) 07/15/18 13:56 U Marijuana (THC) Screen Detected (NotDetected) H 07/15/18 13:56 Assessment and Plan Assessment: Patient is a 33-year-old female who presents emergency Department today with complaints of suicidal ideation. Patient has had increased depression. Patient reports that she plans to hang herself. She is mother of 2 children 9 yo/11yo. She was seen by her counselor today and sent here for evaluation purchase complaint of a headache. She requested IM pain medication. Pt presents stating she saw her counselor today who advised her to come in for evaluation. Pt does admit to feeling suicidal. pt states that she is here because of suicidal ideation. pt reports worsening suicidal ideation over the past 2-3 months. pt is tearful and reports guilt over not being able to perform parenting responsibilities with her worsening depression. pt had an appointment with Mirella her therapist at [facility] today and was recommended to come to ER after stating that she planned to hang herself pt reports that she thinks about hanging herself from her bedroom door with a belt almost daily and suicidal ideation has worsened in the last 2-3 months. pt reports loss of daily function due to lack of desire to get out of bed. pt states, "Most days I have to fight myself to get out of bed." pt also reports that she has been eating only once a day. - Related Data Home Medications Medication Instructions Recorded Confirmed ARIPiprazole [Abilify] 2 mg PO DAILY 07/15/18 07/15/18 Cholecalciferol [Vitamin D3] 5,000 unit PO DAILY 07/15/18 07/15/18 Escitalopram [Lexapro] 30 mg PO DAILY 07/15/18 07/15/18 Mirtazapine [Remeron] 7.5 mg PO HS 07/15/18 07/15/18 Ranitidine HCl [Zantac] 150 mg PO BID 07/15/18 07/15/18 Allergies Allergy/AdvReac Type Severity Reaction Status Date / Time Sulfa (Sulfonamide Allergy Severe Itching Verified 07/15/18 13:33 Antibiotics) Past Medical History Past Medical History: No Reported History History of Any Multi-Drug Resistant Organisms: None Reported Past Surgical History: Tubal Ligation Additional Past Surgical History / Comment(s): KNEE SURGERY Past Psychological History: Anxiety, Depression Smoking Status: Never smoker Past Alcohol Use History: Rare Past Drug Use History: Marijuana Mental Status Examination - General Appearance: [casual, appears stated age Speech/Language: [spontaneous soft ] Attitude/Behavior: [guarded, withdrawn, indifferent] Mood: [ depressed, anxious, fearful, hopelessness] Affect: [flat, incongruent, blunted constricted] Orientation: [time, person, place situation] Thought Content: [wnl Risk Factors: [she is suicidal (ideations,with plan), and/or Homicidal (ideati ons, plan), other] Perception: [wnl (auditory, visual, tactile), other] Thought Processes: [ concrete, circumstantial Concentration/Attention Span: [impaired] [Per observation and interview with the patient] Recent Memory: [wnl 3 out of 3 in 3 minutes] Remote Memory: [wnl, ] [past events, as related history] Intelligence: [average] [based on history, based on vocabulary, syntax, grammar, and content] Judgement: [ fair] [per patient's behavior/history of present illness] Insight: [ fair] [understanding severity of illness/history of present illness] Admitting Diagnosis: [major depressive disorder-recurrent/severe with suicidal ideation] Current Visit: Yes Status: Acute Priority: Low Hospital Course: Plan of Care: [She was admitted on a formal voluntary to [address] [place] [address] at [facility]. She will be placed on 15 minute checks and usual protocol for the unit. A thorough biopsychosocial history of will be completed during her hospitalization. She will be evaluated by medicine, psychiatry, nursing staff, social work and occupational therapy. She is complaining that the antidepressants that she is used in the past have not been effective and she feels that she's been nonadherent to medical treatment plan. We discussed the importance of medications and she has symptoms of major aggressive disorder with poor concentration and isolation her main issues. Therefore venlafaxine 37.5 mg XR will be used by mouth daily at bedtime with the titration to 225 mg or 300 mg by mouth daily at bedtime. She was taken off her Lexapro and no Remeron was added as well. In team will discuss disposition and discharge plans. 07/17/2018: She still has symptoms of anxiety and depression and difficulty sleeping with multiple somatic complaints. We'll increase her Effexor from 37.5-75 mg XR by mouth daily at bedtime. We'll add Mirapex 0.5 mg by mouth daily at bedtime for restless leg syndrome. We'll maintain and Abilify 2 mg by mouth daily at bedtime. Continue doing 15 minute checks and encourage her to go to groups and be integrated [facility] milieu. Environment 07/18/2018: She still has symptoms of anxiety and depression and difficulty with sleep and numerous somatic complaints which appeared to be fibromyalgia type pain. Increase her Effexor 150 mg XR and maintain Mirapex and Abilify at current level. She remains on 15 minute checks for suicide precaution usual protocol for mental health unit [address] [place] [address] 07/21/2018: Today she was tearful and sad and crying regarding the relationship that she is lost with her father. I will increase her Effexor to 225 mg XR by mouth daily at bedtime and will increase her Mirapex to 1.5 mg by mouth daily at bedtime. She will remain on 15 minute checks and precautions as per protocol for mental health unit [facility] Mental status examination time of discharge: The patient presents alert, pleasant, and cooperative. There calmly seated without any agitated behavior. [She] reports that [her] mood is good. Affect is congruent and euthymic. [She] deny having any suicidal or homicidal ideation intent or plan. [She] denies any auditory or visual hallucinations. There is no evidence of any delusional thought content. [Her] thought process is linear and goal-directed. [Her] speech is fluent and nonpressured. [Her] memory and concentration is grossly intact for the purposes of this session. ] Patient Condition at Discharge: Stable Plan - Discharge Summary Discharge Rx Participant: Yes New Discharge Prescriptions: New Venlafaxine HCl ER [Effexor XR] 225 mg PO 2100 30 Days #90 cap.er.24h Pramipexole [Mirapex] 1.5 mg PO 2100 30 Days #90 tab Continue Cholecalciferol [Vitamin D3] 5,000 unit PO DAILY ARIPiprazole [Abilify] 2 mg PO DAILY 30 Days #30 tab Discontinued Ranitidine HCl [Zantac] 150 mg PO BID Mirtazapine [Remeron] 7.5 mg PO HS Escitalopram [Lexapro] 30 mg PO DAILY Discharge Medication List Cholecalciferol [Vitamin D3] 5,000 unit PO DAILY 07/15/18 [History] ARIPiprazole [Abilify] 2 mg PO DAILY 30 Days #30 tab 07/22/18 [Rx] Pramipexole [Mirapex] 1.5 mg PO 2100 30 Days #90 tab 07/22/18 [Rx] Venlafaxine HCl ER [Effexor XR] 225 mg PO 2100 30 Days #90 cap.er.24h 07/22/18 [Rx] Follow up Appointment(s)/Referral(s): [facility] [Outside] - 07/22/18 4:45 pm (07-22-18 @ 4:45 with Mirella Peters 07-25-18 @ 8:00 with RAFAL Rich ) [facility] [Primary Care Provider] - 1-2 days Discharge Disposition: HOME SELF-CARE
== END 2018-07-22 13:10 | disposition home or self-care (01) | DRG 885 ==
LOC: EC 13:05 → 3MHU 17:55
PROVIDERS: ADMIT Psychiatry & Neurology Psychiatry; ATTEND Psychiatry & Neurology Psychiatry
DX: F33.3 Major depressive disorder, recurrent, severe with psychotic symptoms (principal); R45.851 Suicidal ideations; F41.9 Anxiety disorder, unspecified; G25.81 Restless legs syndrome; G43.909 Migraine, unspecified, not intractable, without status migrainosus; Z79.899 Other long term (current) drug therapy; Z88.2 Allergy status to sulfonamides
CPT/HCPCS: 80053; 80061; 80306; 81003; 81025; 82075; 83036; 84443; 85025; 96372; 99285

== ENCOUNTER 2018-09-16 13:31 | Inpatient (IN) | payer OTHER ==
[2018-09-16] MEDS ORDERED: ONDANSETRON 4 MG/2 ML VIAL IVP STA ×2 (13:57→19:34)
[2018-09-16] MEDS ORDERED: HYDROmorphone 0.5 MG/0.5 ML SYRINGE IVP STA (13:57)
[2018-09-16] MEDS ORDERED: SODIUM CHLORIDE 0.9% 1,000 ML IV ONE ×3 (14:02→15:22)
--- NOTE | 2018-09-16 14:19 | ED ---
General Adult HPI - General Chief complaint: Abdominal Pain Stated complaint: Vomiting Time Seen by Provider: 09/16/18 13:57 Source: patient, family, RN notes reviewed, old records reviewed Mode of arrival: ambulatory Limitations: altered mental status - History of Present Illness Initial comments: 33-year-old female presents with chief complaint of abdominal pain. History is difficult secondary patient presentation. She is pale and diaphoretic and she is complaining of right lower quadrant abdominal pain. Further history is obtained from the patient's mother, pain began at approximately 6 AM. Patient has had previous tubal ligation. She has had intermittent abdominal pain and has been evaluated at outside emergency departments in the past for this pain. Patient is complaining of nausea vomiting. No preceding fever or chills. No preceding symptoms prior to 6 AM this morning, patient was in her usual state of health. She is on multiple psychiatric medications with history of depression. - Related Data Home Medications Medication Instructions Recorded Confirmed Cholecalciferol [Vitamin D3 (25 5,000 unit PO DAILY 07/15/18 09/16/18 Mcg = 1000 Iu)] Docusate [Colace] 100 mg PO DAILY 09/16/18 09/16/18 Pramipexole Di-HCl [Mirapex] 0.75 mg PO HS 09/16/18 09/16/18 Ranitidine HCl [Zantac] 150 mg PO BID 09/16/18 09/16/18 Venlafaxine HCl ER [Effexor XR] 225 mg PO HS 09/16/18 09/16/18 traZODone HCL [Desyrel] 50 - 100 mg PO HS 09/16/18 09/16/18 Allergies Allergy/AdvReac Type Severity Reaction Status Date / Time Sulfa (Sulfonamide Allergy Severe Dyspnea Verified 09/16/18 14:17 Antibiotics) codeine Allergy Itching Verified 09/16/18 14:17 Review of Systems ROS Statement: Those systems with pertinent positive or pertinent negative responses have been documented in the HPI. ROS Other: All systems not noted in ROS Statement are negative. Past Medical History Past Medical History: No Reported History Additional Past Medical History / Comment(s): RLQ abdmonial pain several times, no diagnoses History of Any Multi-Drug Resistant Organisms: None Reported Past Surgical History: Tubal Ligation Additional Past Surgical History / Comment(s): KNEE SURGERY Past Anesthesia/Blood Transfusion Reactions: No Reported Reaction Past Psychological History: Anxiety, Depression Smoking Status: Never smoker Past Alcohol Use History: Rare Past Drug Use History: Marijuana General Exam Limitations: altered mental status General appearance: lethargic Head exam: Present: atraumatic, normocephalic Eye exam: Present: normal appearance, PERRL ENT exam: Present: mucous membranes dry Neck exam: Present: normal inspection. Absent: tenderness, meningismus Respiratory exam: Present: normal lung sounds bilaterally. Absent: respiratory distress, wheezes Cardiovascular Exam: Present: regular rate, normal rhythm GI/Abdominal exam: Present: soft, distended, tenderness (Right-sided upper and lower tenderness to palpation) Extremities exam: Present: normal inspection, normal capillary refill, other (Bilateral femoral pulses. Contracture of the feet.) Neurological exam: Present: alert, oriented X3, CN II-XII intact. Absent: motor sensory deficit Psychiatric exam: Present: agitated, anxious Skin exam: Present: warm, diaphoretic, pallor Course Vital Signs 09/16/18 09/16/18 09/16/18 13:48 13:50 13:56 Temperature 97.9 F Pulse Rate 82 Respiratory 24 Rate Blood Pressure 120/73 101/76 120/73 O2 Sat by Pulse 100 99 95 Oximetry 09/16/18 09/16/18 09/16/18 14:00 14:10 14:20 Temperature Pulse Rate 88 Respiratory 40 H Rate Blood Pressure 111/83 116/72 114/69 O2 Sat by Pulse 100 100 100 Oximetry 09/16/18 09/16/18 09/16/18 14:30 14:40 14:50 Temperature Pulse Rate 85 89 103 H Respiratory 21 36 H 25 H Rate Blood Pressure 112/80 121/85 115/76 O2 Sat by Pulse 100 78 L 99 Oximetry 09/16/18 09/16/18 09/16/18 15:00 15:10 15:20 Temperature Pulse Rate 115 H 107 H 106 H Respiratory 28 H 15 26 H Rate Blood Pressure 101/66 122/45 109/70 O2 Sat by Pulse 100 100 100 Oximetry 09/16/18 09/16/18 09/16/18 15:30 15:40 16:00 Temperature Pulse Rate 102 H 101 H Respiratory 22 20 Rate Blood Pressure 115/65 103/62 103/62 O2 Sat by Pulse 100 100 Oximetry 09/16/18 16:20 Temperature Pulse Rate 103 H Respiratory 18 Rate Blood Pressure 106/65 O2 Sat by Pulse 100 Oximetry EKG Findings - EKG Comments: EKG Findings:: EKG: Normal sinus rhythm, sinus arrhythmia. Prolonged QT, rate of 96, ME interval 132, QRS duration 68, QTC 495, no ST segment elevation or depression. Medical Decision Making - Medical Decision Making 33-year-old female presenting with severe abdominal pain. Patient is unable to give a complete history at the initial evaluation. Patient is tachycardic, diaphoretic. Somewhat altered secondary to pain. CT is performed of the brain which is negative for intracranial hemorrhage, CT of the chest negative for acute cardiac pulmonary disease. CT abdomen and pelvis which was negative as well. She has an elevated white count at 18,000, hemoglobin 14.8, lactic acidosis 5.8, urinalysis shows 3+ ketones. She was started on broad-spectrum antibiotics. Discuss case with general surgery regarding possible gallbladder pathology, recommends ultrasound right upper quadrant, this will be obtained and is pending. Patient will be admitted to internal medicine with general surgery on consult. - Lab Data Result diagrams: 09/16/18 13:50 09/16/18 13:50 Lab Results 09/16/18 09/16/18 09/16/18 Range/Units 13:50 13:50 13:50 WBC 18.0 H (3.8-10.6) k/uL RBC 5.08 (3.80-5.40) m/uL Hgb 14.8 (11.4-16.0) gm/dL Hct 44.7 (34.0-46.0) % MCV 88.0 D (80.0-100.0) fL MCH 29.2 (25.0-35.0) pg MCHC 33.2 (31.0-37.0) g/dL RDW 14.1 (11.5-15.5) % Plt Count 340 (150-450) k/uL Neutrophils % 88 % Lymphocytes % 7 % Monocytes % 4 % Eosinophils % 1 % Basophils % 0 % Neutrophils # 15.9 H (1.3-7.7) k/uL Lymphocytes # 1.3 (1.0-4.8) k/uL Monocytes # 0.6 (0-1.0) k/uL Eosinophils # 0.1 (0-0.7) k/uL Basophils # 0.0 (0-0.2) k/uL PT (9.0-12.0) sec INR (<1.2) APTT (22.0-30.0) sec Sodium 141 (137-145) mmol/L Potassium 4.4 (3.5-5.1) mmol/L Chloride 108 H (98-107) mmol/L Carbon Dioxide 19 L (22-30) mmol/L Anion Gap 14 mmol/L BUN 10 (7-17) mg/dL Creatinine 0.74 (0.52-1.04) mg/dL Est GFR (CKD-EPI)AfAm >90 (>60 ml/min/1.73 sqM) Est GFR (CKD-EPI)NonAf >90 (>60 ml/min/1.73 sqM) Glucose 162 H (74-99) mg/dL Plasma Lactic Acid Jluis 5.2 H* (0.7-2.0) mmol/L Calcium 10.3 H (8.4-10.2) mg/dL Total Bilirubin 0.8 (0.2-1.3) mg/dL AST 31 (14-36) U/L ALT 15 (9-52) U/L Alkaline Phosphatase 98 (38-126) U/L Creatine Kinase 101 (30-135) U/L Troponin I (0.000-0.034) ng/mL Total Protein 8.4 H (6.3-8.2) g/dL Albumin 4.9 (3.5-5.0) g/dL Amylase 68 (30-110) U/L Lipase 119 (23-300) U/L Urine Color Urine Appearance (Clear) Urine pH (5.0-8.0) Ur Specific [place] (1.001-1.035) Urine Protein (Negative) Urine Glucose (UA) (Negative) Urine Ketones (Negative) Urine Blood (Negative) Urine Nitrite (Negative) Urine Bilirubin (Negative) Urine Urobilinogen (<2.0) mg/dL Ur Leukocyte Esterase (Negative) Urine RBC (0-5) /hpf Urine WBC (0-5) /hpf Ur Squamous Epith Cells (0-4) /hpf Urine Mucus (None) /hpf Urine HCG, Qual (Not Detectd) Salicylates <1.0 mg/dL Acetaminophen <10.0 ug/mL Serum Alcohol <10 mg/dL Blood Type Blood Type Confirm Blood Type Recheck Antibody Screen Spec Expiration Date 09/16/18 09/16/18 09/16/18 Range/Units 13:50 13:50 13:50 WBC (3.8-10.6) k/uL RBC (3.80-5.40) m/uL Hgb (11.4-16.0) gm/dL Hct (34.0-46.0) % MCV (80.0-100.0) fL MCH (25.0-35.0) pg MCHC (31.0-37.0) g/dL RDW (11.5-15.5) % Plt Count (150-450) k/uL Neutrophils % % Lymphocytes % % Monocytes % % Eosinophils % % Basophils % % Neutrophils # (1.3-7.7) k/uL Lymphocytes # (1.0-4.8) k/uL Monocytes # (0-1.0) k/uL Eosinophils # (0-0.7) k/uL Basophils # (0-0.2) k/uL PT 9.8 (9.0-12.0) sec INR 0.9 (<1.2) APTT 21.3 L (22.0-30.0) sec Sodium (137-145) mmol/L Potassium (3.5-5.1) mmol/L Chloride (98-107) mmol/L Carbon Dioxide (22-30) mmol/L Anion Gap mmol/L BUN (7-17) mg/dL Creatinine (0.52-1.04) mg/dL Est GFR (CKD-EPI)AfAm (>60 ml/min/1.73 sqM) Est GFR (CKD-EPI)NonAf (>60 ml/min/1.73 sqM) Glucose (74-99) mg/dL Plasma Lactic Acid Jluis (0.7-2.0) mmol/L Calcium (8.4-10.2) mg/dL Total Bilirubin (0.2-1.3) mg/dL AST (14-36) U/L ALT (9-52) U/L Alkaline Phosphatase (38-126) U/L Creatine Kinase (30-135) U/L Troponin I <0.012 (0.000-0.034) ng/mL Total Protein (6.3-8.2) g/dL Albumin (3.5-5.0) g/dL Amylase (30-110) U/L Lipase (23-300) U/L Urine Color Urine Appearance (Clear) Urine pH (5.0-8.0) Ur Specific [place] (1.001-1.035) Urine Protein (Negative) Urine Glucose (UA) (Negative) Urine Ketones (Negative) Urine Blood (Negative) Urine Nitrite (Negative) Urine Bilirubin (Negative) Urine Urobilinogen (<2.0) mg/dL Ur Leukocyte Esterase (Negative) Urine RBC (0-5) /hpf Urine WBC (0-5) /hpf Ur Squamous Epith Cells (0-4) /hpf Urine Mucus (None) /hpf Urine HCG, Qual (Not Detectd) Salicylates mg/dL Acetaminophen ug/mL Serum Alcohol mg/dL Blood Type A Positive Blood Type Confirm Blood Type Recheck CABO Indicated Antibody Screen NEGATIVE Spec Expiration Date 09/19/2018 - 234909/16/18 09/16/18 09/16/18 Range/Units 13:55 14:20 14:20 WBC (3.8-10.6) k/uL RBC (3.80-5.40) m/uL Hgb (11.4-16.0) gm/dL Hct (34.0-46.0) % MCV (80.0-100.0) fL MCH (25.0-35.0) pg MCHC (31.0-37.0) g/dL RDW (11.5-15.5) % Plt Count (150-450) k/uL Neutrophils % % Lymphocytes % % Monocytes % % Eosinophils % % Basophils % % Neutrophils # (1.3-7.7) k/uL Lymphocytes # (1.0-4.8) k/uL Monocytes # (0-1.0) k/uL Eosinophils # (0-0.7) k/uL Basophils # (0-0.2) k/uL PT (9.0-12.0) sec INR (<1.2) APTT (22.0-30.0) sec Sodium (137-145) mmol/L Potassium (3.5-5.1) mmol/L Chloride (98-107) mmol/L Carbon Dioxide (22-30) mmol/L Anion Gap mmol/L BUN (7-17) mg/dL Creatinine (0.52-1.04) mg/dL Est GFR (CKD-EPI)AfAm (>60 ml/min/1.73 sqM) Est GFR (CKD-EPI)NonAf (>60 ml/min/1.73 sqM) Glucose (74-99) mg/dL Plasma Lactic Acid Jluis (0.7-2.0) mmol/L Calcium (8.4-10.2) mg/dL Total Bilirubin (0.2-1.3) mg/dL AST (14-36) U/L ALT (9-52) U/L Alkaline Phosphatase (38-126) U/L Creatine Kinase (30-135) U/L Troponin I (0.000-0.034) ng/mL Total Protein (6.3-8.2) g/dL Albumin (3.5-5.0) g/dL Amylase (30-110) U/L Lipase (23-300) U/L Urine Color Yellow Urine Appearance Clear (Clear) Urine pH 8.5 H (5.0-8.0) Ur Specific [place] 1.028 (1.001-1.035) Urine Protein 1+ H (Negative) Urine Glucose (UA) Negative (Negative) Urine Ketones 3+ H (Negative) Urine Blood Negative (Negative) Urine Nitrite Negative (Negative) Urine Bilirubin Negative (Negative) Urine Urobilinogen <2.0 (<2.0) mg/dL Ur Leukocyte Esterase Negative (Negative) Urine RBC 2 (0-5) /hpf Urine WBC 12 H (0-5) /hpf Ur Squamous Epith Cells 1 (0-4) /hpf Urine Mucus Rare H (None) /hpf Urine HCG, Qual Not Detected (Not Detectd) Salicylates mg/dL Acetaminophen ug/mL Serum Alcohol mg/dL Blood Type Blood Type Confirm A Positive Blood Type Recheck Antibody Screen Spec Expiration Date Disposition Clinical Impression: Abdominal pain, Intractable abdominal pain, Lactic acidosis, Leukocytosis Disposition: ADMITTED IP TO THIS HOSP Is patient prescribed a controlled substance at d/c from ED?: No Referrals: [facility] [Primary Care Provider] - 1-2 days Time of Disposition: 17:14 Decision to Admit Reason: Admit from EC Decision Date: 09/16/18 Decision Time: 17:14
[2018-09-16 14:43] LABS: ALT 15 U/L (9-52); AST 31 U/L (14-36); Acetaminophen <10.0 ug/mL; Albumin 4.9 g/dL (3.5-5.0); Alcohol <10 mg/dL; Alkaline Phosphatase 98 U/L (38-126); Amylase 68 U/L (30-110); Anion Gap 14 mmol/L; Blood Urea Nitrogen 10 mg/dL (7-17); Calcium 10.3 mg/dL (8.4-10.2); Carbon Dioxide 19 mmol/L (22-30); Chloride 108 mmol/L (98-107); Creatine Kinase 101 U/L (30-135); Glucose 162 mg/dL (74-99); Lipase 119 U/L (23-300); Potassium 4.4 mmol/L (3.5-5.1); Salicylate <1.0 mg/dL; Sodium 141 mmol/L (137-145); Total Bilirubin 0.8 mg/dL (0.2-1.3); Total Protein 8.4 g/dL (6.3-8.2)
--- NOTE | 2018-09-16 14:51 | XR ---
EXAMINATION TYPE: XR chest 1V portable DATE OF EXAM: 09/16/2018 COMPARISON: NONE HISTORY: Chest and abdominal pain. TECHNIQUE: Single AP portable frontal upright view of the chest is obtained. FINDINGS: Overlying EKG leads are present. There is no focal air space opacity, pleural effusion, or pneumothorax seen. The cardiac silhouette size is within normal limits. The osseous structures are intact. IMPRESSION: No acute process.
[2018-09-16] MEDS ORDERED: HYDROmorphone 1 MG/ML 1 ML SYRINGE IVP STA (14:57)
[2018-09-16 14:59] LABS: Appearance,Urine Clear (Clear); Bilirubin,Urine Negative (Negative); Blood,Urine Negative (Negative); Color,Urine Yellow; Glucose,Urine (UA) Negative (Negative); Ketones,Urine 3+ (Negative); Leukocyte Esterase,Urine Negative (Negative); Mucus,Urine Rare /hpf; Nitrite,Urine Negative (Negative); PH, Urine 8.5 (5.0-8.0); Protein,Urine 1+ (Negative); RBC,Urine 2 /hpf (0-5); Specific Gravity,Urine 1.028 (1.001-1.035); Squamous Epithelial Cell,Urine 1 /hpf (0-4); Urobilinogen,Urine <2.0 mg/dL (<2.0); WBC,Urine 12 /hpf (0-5)
[2018-09-16 15:00] LABS: INR 0.9 (<1.2); Prothrombin Time 9.8 sec (9.0-12.0)
[2018-09-16 15:02] LABS: Partial Thromboplastin Time 21.3 sec (22.0-30.0)
[2018-09-16 15:07] LABS: Basophils % (A) 0 %; Eosinophils # (A) 0.1 k/uL (0-0.7); Eosinophils % (A) 1 %; HCT 44.7 % (34.0-46.0); HGB 14.8 gm/dL (11.4-16.0); Lymphocytes # (A) 1.3 k/uL (1.0-4.8); Lymphocytes % (A) 7 %; MCH 29.2 pg (25.0-35.0); MCHC 33.2 g/dL (31.0-37.0); Mean Platelet Volume 8.2; Monocytes # (A) 0.6 k/uL (0-1.0); Monocytes % (A) 4 %; Neutrophils # (A) 15.9 k/uL (1.3-7.7); Neutrophils % (A) 88 %; Platelet Count 340 k/uL (150-450); RBC 5.08 m/uL (3.80-5.40); RDW 14.1 % (11.5-15.5)
[2018-09-16] MEDS ORDERED: PIPERACILLIN-TAZOBACTAM 3.375 GM in SODIUM CHLORIDE 0.9% 100 ML IVPB STA (15:22)
--- NOTE | 2018-09-16 16:11 | CT ---
EXAMINATION TYPE: CT brain wo con DATE OF EXAM: 09/16/2018 COMPARISON: None. HISTORY: weakness, vomiting and seizure like activity. CT DLP: 1142.4 mGycm. Automated Exposure Control for Dose Reduction was Utilized. TECHNIQUE: CT scan of the head is performed without contrast. FINDINGS: There is no acute intracranial hemorrhage, mass effect, or midline shift identified. The ventricles and sulci are within normal limits in size. Pantoja-white matter differentiation is maintai diony. The globes are intact and the visualized sinuses are clear. IMPRESSION: No acute intracranial hemorrhage, mass effect, or midline shift is seen.
--- NOTE | 2018-09-16 16:14 | CT ---
EXAMINATION TYPE: CT abdomen pelvis w con DATE OF EXAM: 09/16/2018 HISTORY: Back pain with diarrhea and vomiting CT DLP: 713.5mGycm Automated Exposure Control for Dose Reduction was Utilized. CONTRAST: CT scan of the abdomen and pelvis is performed without oral but with IV Contrast, patient injected wi th 100 mL of Isovue 300. COMPARISON: None. FINDINGS: LUNG BASES: No significant abnormality is appreciated. LIVER/GB: No significant abnormality is appreciated. PANCREAS: No significant abnormality is seen. SPLEEN: No significant abnormality is seen. ADRENALS: No significant abnormality is seen. KIDNEYS: No significant abnormality is seen. BOWEL: Evaluation bowel is slightly suboptimal secondary to lack of enteric contrast. No suspicious s mall or large bowel dilatation.. UTERUS/ADNEXA: Anteverted uterus is seen. Scattered pelvic phleboliths. LYMPH NODES: No greater than 1cm abdominal or pelvic lymph nodes are appreciated. OSSEOUS STRUCTURES: No significant abnormality is seen. OTHER: No significant additional abnormality is seen. IMPRESSION: No significant acute finding is seen to account for patient's clinical symptoms.
[2018-09-16] MEDS ORDERED: HYDROmorphone 0.5 MG/0.5 ML SYRINGE IVP PRN (17:07)
[2018-09-16] MEDS ORDERED: NALOXONE 0.4 MG/ML 1 ML VIAL IV PRN (17:07)
[2018-09-16] MEDS ORDERED: ONDANSETRON 4 MG/2 ML VIAL IVP PRN (17:07)
[2018-09-16] MEDS: SODIUM CHLORIDE 0.9% 1,000 ML IV SCH (19:33)
[2018-09-16] MEDS ORDERED: ACETAMINOPHEN TAB 325 MG TAB PO PRN (20:49)
[2018-09-16] MEDS ORDERED: MELATONIN 3 MG TABLET PO PRN (20:49)
--- NOTE | 2018-09-16 20:55 | P.HPIM ---
History of Present Illness H&P Date: 09/16/18 Chief Complaint: RUQ pain Patient is a 33-year-old female with a past medical history of chronic abdominal pain since 2006, depression, insomnia, and THC use who presented to the ER via private vehicle secondary to abdominal pain and confusion. In the ER she underwent an extensive evaluation. On arrival her vital signs were within normal limits. However during her evaluation her heart rate became elevated at 103 and respiratory rate became elevated at 25. Initially she was confused but this improved after IV fluids. Initial laboratory analysis demonstrated a white blood cell count of 18, carbon dioxide of 19, anion gap 14, lactic acid of 5.2, calcium 10.3, and elevated protein at 8.4. CT abdomen and pelvis was negative. There is concern for possible ascending cholangitis. She was started on Zosyn and IV fluids. Dr. Jj was consulted. Gallbladder ultrasound ordered. Patient seen and examined in the emergency department with her mother present. She states that she woke up this morning having severe right sided abdominal pain with radiation to her left back. She began having nausea and vomiting. She vomited up some dark red material and then black material. She tried to take a bath to see if it would help. She then reports that she is unsure when she woke up again in the bathtub. She walked to her aunts house and seemed acutely confused and complaining of pain. Her and noticed that her eyes were fluttering backwards and she was having a hard time speaking. They therefore brought her to the emergency department. She reports that she's been having intermittent abdominal pain since 2017. They have not been able to find the cause. She typically comes in the ER and get sent home per patient. She states that her abdominal pain has becoming more frequent and more intense. She was unsure of what aggravates or alleviates the pain. She states that today she began having rigors/shivering. She did not take her temperature at home. She had an abnormal gait at home and was unable to walk. She also notes that her legs felt extremely heavy and it was hard to walk today. They also felt tight and as though they were in spasm. She reports that she also is having some bilateral upper extremity weakness. She reports that both legs feel numb. No known history of seizures. She reports that she has been having issues with constipation, but no diarrhea. She sometimes has the feeling she needs to have a bowel movement but then nothing comes out. She denies any dysuria. She does take several medications for depression. She reports that her Abilify was recently stopped, Effexor was increased, she takes her trazodone intermittently. She is also on Mirapex. Review of Systems Pertinent positives and negatives as discussed in HPI, a complete review of systems was performed and all other systems are negative. Past Medical History Additional Past Medical History / Comment(s): RLQ abdmonial pain several times, no diagnoses, depression, insomnia History of Any Multi-Drug Resistant Organisms: None Reported Past Surgical History: Tubal Ligation Additional Past Surgical History / Comment(s): Right knee scope secondary to meniscal repair, tubal ligation, IUD removed Past Anesthesia/Blood Transfusion Reactions: No Reported Reaction Past Psychological History: Anxiety, Depression Smoking Status: Never smoker Past Alcohol Use History: Rare Past Drug Use History: Marijuana Additional History: This with her fianc and 2 kids. Follows with [facility] closely. - Past Family History Mother Additional Family Medical History / Comment(s): Gallbladder disease Medications and Allergies Home Medications Medication Instructions Recorded Confirmed Type Cholecalciferol [Vitamin D3 (25 5,000 unit PO DAILY 07/15/18 09/16/18 History Mcg = 1000 Iu)] Docusate [Colace] 100 mg PO DAILY 09/16/18 09/16/18 History Pramipexole Di-HCl [Mirapex] 0.75 mg PO HS 09/16/18 09/16/18 History Ranitidine HCl [Zantac] 150 mg PO BID 09/16/18 09/16/18 History Venlafaxine HCl ER [Effexor XR] 225 mg PO HS 09/16/18 09/16/18 History traZODone HCL [Desyrel] 50 - 100 mg PO HS 09/16/18 09/16/18 History Allergies Allergy/AdvReac Type Severity Reaction Status Date / Time Sulfa (Sulfonamide Allergy Severe Dyspnea Verified 09/16/18 14:17 Antibiotics) codeine Allergy Itching Verified 09/16/18 14:17 Physical Exam Osteopathic Statement: *. No significant issues noted on an osteopathic structural exam other than those noted in the History and Physical/Consult. Vitals: Vital Signs Temp Pulse Resp BP Pulse Ox 09/16/18 19:10 16 126/73 99 09/16/18 19:00 100 30 H 126/74 100 09/16/18 18:50 107 H 17 132/71 100 09/16/18 18:40 114 H 17 122/74 100 09/16/18 18:30 105 H 34 H 120/68 100 09/16/18 18:20 112 H 21 116/66 100 09/16/18 18:10 102 H 19 107/70 86 L 09/16/18 18:00 108 H 25 H 105/65 100 09/16/18 17:50 74 22 100/57 100 09/16/18 17:40 90 20 99/62 100 09/16/18 17:30 98 24 100/79 100 09/16/18 17:20 95 18 108/66 100 09/16/18 17:10 95 24 102/63 100 09/16/18 17:00 105 H 34 H 103/66 100 09/16/18 16:50 99 33 H 117/63 100 09/16/18 16:40 98 22 112/71 100 09/16/18 16:30 107 H 18 105/66 100 09/16/18 16:20 103 H 27 H 106/65 100 09/16/18 16:10 101 H 27 H 103/62 100 09/16/18 16:00 103/62 09/16/18 15:40 101 H 20 103/62 100 09/16/18 15:30 102 H 22 115/65 100 09/16/18 15:20 106 H 26 H 109/70 100 09/16/18 15:10 107 H 15 122/45 100 09/16/18 15:00 115 H 28 H 101/66 100 09/16/18 14:50 103 H 25 H 115/76 99 09/16/18 14:40 89 36 H 121/85 78 L 09/16/18 14:30 85 21 112/80 100 09/16/18 14:20 88 40 H 114/69 100 09/16/18 14:10 116/72 100 09/16/18 14:00 111/83 100 09/16/18 13:56 97.9 F 82 24 120/73 95 09/16/18 13:50 101/76 99 09/16/18 13:48 120/73 100 Intake and Output 09/16/18 09/16/18 09/16/18 06:59 14:59 22:59 Other: Weight 65.771 kg General: Ill appearing, moderate distress secondary to pain, appears at stated age, normal weight Derm: no unusual rashes/lesions no unusual ecchymoses, warm, dry Head: atraumatic, normocephalic, symmetric Eyes: EOMI, no lid lag, anicteric sclera, pupils equal round reactive to light ENT: Nose and ears atraumatic, no thrush, + pharyngeal erythema Neck: No thyromegaly, no cervical lymphadenopathy, trachea midline, supple Mouth: no lip lesion, mucus membranes dry Cardiovascular: S1S2 tachy, no murmur, positive posterior tibial pulse bilateral , no edema, capillary refill less than 2 seconds Lungs: CTA bilateral, no rhonchi, no rales , no accessory muscle use Abdominal: soft, +tender to palpation diffusel most tender in RUQ, no guarding, no appreciable organomegaly, hypoactive bowel sounds Ext: no gross muscle atrophy, muscle strength 5 out of 5 in all upper extremities grossly, + spasms of b/l feet, heal raise in tact b/l, no muscle r egidity, + oral tremor Neuro: CN II-XI grossly intact, light touch intact all 4 extremities- but p atient states legs are numb, finger to nose within normal limits- patient uses opposite arm to left finger to nose on both sides so none appears weaker, Psych: Alert, oriented, anxious, flight of ideas Results CBC & Chem 7: 09/16/18 13:50 09/16/18 13:50 Labs: Abnormal Lab Results - Last 24 Hours (Table) 09/16/18 09/16/18 09/16/18 Range/Units 13:50 13:50 13:50 WBC 18.0 H (3.8-10.6) k/uL Neutrophils # 15.9 H (1.3-7.7) k/uL APTT (22.0-30.0) sec Chloride 108 H (98-107) mmol/L Carbon Dioxide 19 L (22-30) mmol/L Glucose 162 H (74-99) mg/dL Plasma Lactic Acid Jluis 5.2 H* (0.7-2.0) mmol/L Calcium 10.3 H (8.4-10.2) mg/dL Total Protein 8.4 H (6.3-8.2) g/dL Urine pH (5.0-8.0) Urine Protein (Negative) Urine Ketones (Negative) Urine WBC (0-5) /hpf Urine Mucus (None) /hpf 09/16/18 09/16/18 09/16/18 Range/Units 13:50 14:20 18:15 WBC (3.8-10.6) k/uL Neutrophils # (1.3-7.7) k/uL APTT 21.3 L (22.0-30.0) sec Chloride (98-107) mmol/L Carbon Dioxide (22-30) mmol/L Glucose (74-99) mg/dL Plasma Lactic Acid Jluis 2.7 H* (0.7-2.0) mmol/L Calcium (8.4-10.2) mg/dL Total Protein (6.3-8.2) g/dL Urine pH 8.5 H (5.0-8.0) Urine Protein 1+ H (Negative) Urine Ketones 3+ H (Negative) Urine WBC 12 H (0-5) /hpf Urine Mucus Rare H (None) /hpf Chest x-ray: report reviewed CT scan - abdomen: report reviewed CT scan - pelvis: report reviewed Thrombosis Risk Factor Assmnt - DVT/VTE Prophylaxis DVT/VTE Prophylaxis: Pharmacologic Prophylaxis ordered Assessment and Plan Assessment: Intractable abdominal pain, nausea, and vomiting with elevated lactic acid and sepsis - CT abd/pelvis negative - await gallbladder ultrasound -Continue with IV fluids -Zosyn -General surgery and GI recommendations -Urinalysis negative -IV Protonix -Nothing by mouth with ice chips -Repeat liver enzymes and bilirubin in a.m. Lower extremity hypertonia, shivering, associated with gait instability -Concern for serotonin syndrome -Hold trazodone and Effexor - hold mirapex -Consult neurology -Seizure precautions -CPK and temperature normal when he weighed from something such as neuroleptic malignant syndrome - Telemetry Anion gap metabolic acidosis secondary to lactic acid -IV fluids -Follow basic metabolic profile Depression with recent mental health admission -We will hold Effexor and trazodone at this time -Has been taken off Abilify recently -Follow up outpatient at [facility] The patient is admitted with an anticipated greater than 2 midnight stay for evaluation of Sepsis. Surrogate decision-maker: Mother CODE STATUS:Full DVT prophylaxis: Lovenox Discussed with: Patient, ED physician, Mother Anticipated discharge date: 2-[address]: home A total of 65 minutes was spent on the care of this complex patient more than 50% of the time was spent in counseling and care coordination.
--- NOTE | 2018-09-16 21:22 | US ---
EXAMINATION TYPE: US gallbladder DATE OF EXAM: 09/16/2018 COMPARISON: CT 09/16/2018 CLINICAL HISTORY: Pain. Pain, nausea and vomiting. EXAM MEASUREMENTS: Liver Length: 13.1 cm Gallbladder Wall: 0.4 cm CBD: 0.3 cm Right Kidney: 9.2 x 4.7 x 4.3 cm Pancreas: Tail obscured by overlying bowel gas Liver: wnl Gallbladder: Echogenic area with shadowing seen. Evidence for sonographic Guillaume's sign: Yes CBD: wnl Right Kidney: Appears wnl somewhat limited due to rib shadowing. IMPRESSION: Cholelithiasis noted, but no acute sonographic process.
[2018-09-16] MEDS: PIPERACILLIN-TAZOBACTAM 3.375 GM in SODIUM CHLORIDE 0.9% 100 ML IVPB SCH (23:12)
[2018-09-16] MEDS: PANTOPRAZOLE 40 MG/10 ML VIAL IVP SCH (23:12)
[2018-09-16] MEDS: ONDANSETRON 4 MG/2 ML VIAL IVP PRN (23:13)
[2018-09-16] MEDS: HYDROmorphone 1 MG/ML 1 ML SYRINGE IV PRN (23:13)
[2018-09-16] MEDS: HYDROcodone/APAP 5-325MG 1 EACH TAB PO PRN (23:14)
[2018-09-16] MEDS: LORazepam 2 MG/ML INJ IV PRN (23:15)
[2018-09-17] MEDS: SODIUM CHLORIDE 0.9% 1,000 ML IV SCH ×2 (04:18→08:33)
[2018-09-17] MEDS: ONDANSETRON 4 MG/2 ML VIAL IVP PRN ×2 (06:29→17:30)
[2018-09-17] MEDS: HYDROmorphone 1 MG/ML 1 ML SYRINGE IV PRN (06:37)
[2018-09-17] MEDS: PIPERACILLIN-TAZOBACTAM 3.375 GM in SODIUM CHLORIDE 0.9% 100 ML IVPB SCH ×3 (06:39→22:15)
[2018-09-17] MEDS: HYDROcodone/APAP 5-325MG 1 EACH TAB PO PRN (07:07)
[2018-09-17 08:31] LABS: Basophils % (A) 0 %; Eosinophils # (A) 0.1 k/uL (0-0.7); Eosinophils % (A) 1 %; Lymphocytes # (A) 1.4 k/uL (1.0-4.8); Lymphocytes % (A) 17 %; MCH 29.8 pg (25.0-35.0); MCHC 32.7 g/dL (31.0-37.0); MCV 91.3 fL (80.0-100.0); Mean Platelet Volume 7.1; Monocytes # (A) 0.5 k/uL (0-1.0); Monocytes % (A) 6 %; Neutrophils # (A) 6.4 k/uL (1.3-7.7); Neutrophils % (A) 76 %; Platelet Count 189 k/uL (150-450); RBC 3.62 m/uL (3.80-5.40); RDW 13.8 % (11.5-15.5); WBC 8.4 k/uL (3.8-10.6)
[2018-09-17] MEDS: PANTOPRAZOLE 40 MG/10 ML VIAL IVP SCH (08:32)
[2018-09-17] MEDS: ENOXAPARIN 40 MG/0.4 ML SYRINGE SQ SCH (08:33)
[2018-09-17 08:37] LABS: HGB 10.8 gm/dL (11.4-16.0)
[2018-09-17 08:40] LABS: ALT 12 U/L (9-52); AST 15 U/L (14-36); Albumin 2.8 g/dL (3.5-5.0); Alkaline Phosphatase 53 U/L (38-126); Anion Gap 4 mmol/L; Blood Urea Nitrogen 5 mg/dL (7-17); Calcium 7.8 mg/dL (8.4-10.2); Carbon Dioxide 19 mmol/L (22-30); Chloride 119 mmol/L (98-107); Creatine Kinase 100 U/L (30-135); Glucose 86 mg/dL (74-99); Magnesium 1.8 mg/dL (1.6-2.3); Phosphorus 3.1 mg/dL (2.5-4.5); Potassium 3.5 mmol/L (3.5-5.1); Sodium 142 mmol/L (137-145); Total Bilirubin 0.4 mg/dL (0.2-1.3); Total Protein 5.3 g/dL (6.3-8.2)
[2018-09-17] MEDS: SODIUM CHLORIDE 0.45% 1,000 ML IV SCH ×2 (09:11→20:42)
--- NOTE | 2018-09-17 10:42 | P.PN ---
Subjective Progress Note Date: 09/17/18 Principal diagnosis: abdominal pain Patient is a 33-year-old female with a past medical history of chronic abdominal pain since 2006, depression, insomnia, and THC use who presented to the ER via private vehicle secondary to abdominal pain and confusion. In the ER she underwent an extensive evaluation. On arrival her vital signs were within normal limits. However during her evaluation her heart rate became elevated at 103 and respiratory rate became elevated at 25. Initially she was confused but this improved after IV fluids. Initial laboratory analysis demonstrated a white blood cell count of 18, carbon dioxide of 19, anion gap 14, lactic acid of 5.2, calcium 10.3, and elevated protein at 8.4. CT abdomen and pelvis was negative. There is concern for possible ascending cholangitis. She was started on Zosyn and IV fluids. Dr. Jj was consulted. Gallbladder ultrasound ordered. She was admitted for further monitoring. Her gallbladder ultrasound showed cholelithiasis. There was concern for serotonin syndrome as her Effexor had recently been increased and she is on trazodone. She had hypertonia, hyperreflexia, tachycardia, and confusion on arrival. She also reported stiff muscles. Her Effexor and trazodone were stopped. She was placed on IV fluids. On the morning of 09/17 she continued to have nausea and vomiting. She continues to have right upper quadrant abdominal pain. GI consult currently pending. Actively vomiting when I am in the room. Patient seen and examined at bedside. She reports continued right upper quadrant pain. She's had intractable nausea and vomiting. She has not ate or drank anything but continues to have dry heaves as well as bilious output. Her arms and legs still feel heavy and stiff. She is not as confused or lethargic. She is having some shortness of breath. She denies any chest discomfort. No lower extremity edema. Objective - Vital Signs Vital signs: Vital Signs Temp 97.8 F 09/17/18 07:39 Pulse 107 H 09/17/18 07:39 Resp 16 09/17/18 07:39 BP 95/59 09/17/18 07:39 Pulse Ox 95 09/17/18 07:39 Intake & Output 09/16/18 09/17/18 09/17/18 18:59 06:59 18:59 Output Total 10 Balance -10 Weight 65.771 kg Output: Emesis 10 Other: # Voids 0 - Exam General: ill appearing, moderate distress, appears at stated age Derm: warm, dry Head: atraumatic, normocephalic, symmetric Eyes: EOMI, no lid lag, anicteric sclera Mouth: no lip lesion, mucus membranes moist Cardiovascular: S1S2 reg, no murmur, positive posterior tibial pulse bilateral, Lungs: decreased bs bilateral, no rhonchi, no rales , no accessory muscle use Abdominal: soft, +tender to palpation , + guarding, no appreciable organomegaly Ext: no gross muscle atrophy, no edema, no contractures Neuro: CN II-XI grossly intact, no focal neuro deficits Psych: Alert, oriented, anxious and tearful - Labs CBC & Chem 7: 09/17/18 07:36 09/17/18 07:36 Labs: Abnormal Lab Results - Last 24 Hours (Table) 09/16/18 09/16/18 09/16/18 Range/Units 13:50 13:50 13:50 WBC 18.0 H (3.8-10.6) k/uL RBC (3.80-5.40) m/uL Hgb (11.4-16.0) gm/dL Hct (34.0-46.0) % Neutrophils # 15.9 H (1.3-7.7) k/uL APTT (22.0-30.0) sec Chloride 108 H (98-107) mmol/L Carbon Dioxide 19 L (22-30) mmol/L BUN (7-17) mg/dL Glucose 162 H (74-99) mg/dL Plasma Lactic Acid Jluis 5.2 H* (0.7-2.0) mmol/L Calcium 10.3 H (8.4-10.2) mg/dL Total Protein 8.4 H (6.3-8.2) g/dL Albumin (3.5-5.0) g/dL Urine pH (5.0-8.0) Urine Protein (Negative) Urine Ketones (Negative) Urine WBC (0-5) /hpf Urine Mucus (None) /hpf 09/16/18 09/16/18 09/16/18 Range/Units 13:50 14:20 18:15 WBC (3.8-10.6) k/uL RBC (3.80-5.40) m/uL Hgb (11.4-16.0) gm/dL Hct (34.0-46.0) % Neutrophils # (1.3-7.7) k/uL APTT 21.3 L (22.0-30.0) sec Chloride (98-107) mmol/L Carbon Dioxide (22-30) mmol/L BUN (7-17) mg/dL Glucose (74-99) mg/dL Plasma Lactic Acid Jluis 2.7 H* (0.7-2.0) mmol/L Calcium (8.4-10.2) mg/dL Total Protein (6.3-8.2) g/dL Albumin (3.5-5.0) g/dL Urine pH 8.5 H (5.0-8.0) Urine Protein 1+ H (Negative) Urine Ketones 3+ H (Negative) Urine WBC 12 H (0-5) /hpf Urine Mucus Rare H (None) /hpf 09/17/18 09/17/18 09/17/18 Range/Units 01:05 07:36 07:36 WBC (3.8-10.6) k/uL RBC 3.62 L (3.80-5.40) m/uL Hgb 10.8 L D (11.4-16.0) gm/dL Hct 33.0 L (34.0-46.0) % Neutrophils # (1.3-7.7) k/uL APTT (22.0-30.0) sec Chloride 119 H (98-107) mmol/L Carbon Dioxide 19 L (22-30) mmol/L BUN 5 L (7-17) mg/dL Glucose (74-99) mg/dL Plasma Lactic Acid Jluis <0.5 L (0.7-2.0) mmol/L Calcium 7.8 L (8.4-10.2) mg/dL Total Protein 5.3 L (6.3-8.2) g/dL Albumin 2.8 L (3.5-5.0) g/dL Urine pH (5.0-8.0) Urine Protein (Negative) Urine Ketones (Negative) Urine WBC (0-5) /hpf Urine Mucus (None) /hpf Assessment and Plan Assessment: Cholecystits - Surgery recs pending - CT abd/pelvis negative -Continue with IV fluids, -D/C zosyn -GI recommendations pending -Urinalysis negative -IV Protonix -Nothing by mouth with ice chips - pain control, antiemetics Intractable nausea and vomiting - no reglan - IVF - Add phenergan as zofran not working Probable serotonin syndrome- Lower extremity hypertonia, shivering, associated with gait instability -Hold trazodone and Effexor - hold mirapex -neurology recs pending -Seizure precautions -CPK and temperature normal point against something such as neuroleptic malignant syndrome - Telemetry Hyperchloremic metabolic acidosis secondary to lactic acid -IV fluids to 0.45 -Follow basic metabolic profile Depression with recent mental health admission -We will hold Effexor and trazodone at this time -Has been taken off Abilify recently -Follow up outpatient at [facility] DVT prophylaxis: Lovenox Discussed with: Patient,GI, Surgery, Mother Anticipated discharge date: 2-[address]: home A total of 35 minutes was spent on the care of this complex patient more than 50% of the time was spent in counseling and care coordination.
--- NOTE | 2018-09-17 10:43 | P.CONS ---
History of Present Illness - Reason for Consult Consult date: 09/17/18 Right upper quadrant abdominal pain nausea vomiting Requesting physician: Emi Mcneal - Chief Complaint Right upper quadrant abdominal pain nausea vomiting - History of Present Illness 33-year-old female with a history chronic right upper quadrant abdominal pain 10 years duration, depression maintained on Desyrel Effexor, anxiety, THC, insomnia admitted with abdominal pain confusion and upper extremity weakness lower extremity numbness. Patient states over several years she expresses right upper quadrant abdominal pain associated more with meals than not. Pain is very sharp localized to the right upper quadrant occurring sometimes on a daily basis sometimes every 2 weeks. Over the past 6 months she's had minimal abdominal discomfort but then over the holiday weekend she had baked beans fattier foods that cause pain to recur. Denies fever chills hematemesis hematochezia or melena. No significant weight loss. CT abdomen and pelvis negative. Ultrasoun d abdomen reported cholelithiasis no abnormalities of biliary tree. Common bile duct and gallbladder wall 4 mm. No alcohol or NSAIDs. LFTs within normal limits. Hemoglobin 10.8. BUN 5. Creatinine 0.7. No recent EGD or colonoscopy. Review of Systems Constitutional: Denies fever, chills, sweats, weight gain, or loss. HEENT: Negative for migraines, blurred vision or loss, earaches, drainage, tinnitus, oral mucosal lesions, dysphagia, or odynophagia. CARDIAC: Negative for chest pain, arrhythmias, or palpitation. RESPIRATORY: Negative for shortness of breath, hemoptysis, cough, or sputum production. GI: See HPI for pertinent findings. : Negative for hematuria, urgency, frequency, polyuria, or dysuria. GYNc: Denies possibility of . Negative vaginal discharge. MUSCULOSKELETAL: Bilateral upper extremity weakness lower extremity numbness C HPI arthralgias. NEUROLOGIC: Negative for stroke or TIA. ENDOCRINE: Negative for thyroid problems. SKIN: Negative for rash or itching. PSYCHIATRIC: History of depression and anxiety Past Medical History Past Medical History: No Reported History Additional Past Medical History / Comment(s): RUQ abdmonial pain several times, no diagnoses, depression, insomnia History of Any Multi-Drug Resistant Organisms: None Reported Past Surgical History: Tubal Ligation Additional Past Surgical History / Comment(s): Right knee scope secondary to meniscal repair, tubal ligation, IUD removed Past Anesthesia/Blood Transfusion Reactions: No Reported Reaction Past Psychological History: Anxiety, Depression Smoking Status: Never smoker Past Alcohol Use History: None Reported Past Drug Use History: None Reported Additional Drug Use History / Comment(s): . - Past Family History Mother Additional Family Medical History / Comment(s): Gallbladder disease Medications and Allergies Home Medications Medication Instructions Recorded Confirmed Type Cholecalciferol [Vitamin D3 (25 5,000 unit PO DAILY 07/15/18 09/16/18 History Mcg = 1000 Iu)] Docusate [Colace] 100 mg PO DAILY 09/16/18 09/16/18 History Pramipexole Di-HCl [Mirapex] 0.75 mg PO HS 09/16/18 09/16/18 History Ranitidine HCl [Zantac] 150 mg PO BID 09/16/18 09/16/18 History Venlafaxine HCl ER [Effexor XR] 225 mg PO HS 09/16/18 09/16/18 History traZODone HCL [Desyrel] 50 - 100 mg PO HS 09/16/18 09/16/18 History Allergies Allergy/AdvReac Type Severity Reaction Status Date / Time Sulfa (Sulfonamide Allergy Severe Dyspnea Verified 09/16/18 14:17 Antibiotics) codeine Allergy Itching Verified 09/16/18 14:17 Physical Exam Vitals: Vital Signs Temp Pulse Pulse Pulse Resp BP BP 09/17/18 07:39 97.8 F 107 H 107 H 16 95/59 09/17/18 07:05 103 H 95/59 09/17/18 06:35 103 H 119/65 09/17/18 04:00 97.6 F 113 H 18 90/61 09/17/18 00:00 98.6 F 126 H 18 98/48 09/16/18 21:14 09/16/18 19:10 16 126/73 09/16/18 19:00 100 30 H 126/74 09/16/18 18:50 107 H 17 132/71 09/16/18 18:40 114 H 17 122/74 09/16/18 18:30 105 H 34 H 120/68 09/16/18 18:20 112 H 21 116/66 09/16/18 18:10 102 H 19 107/70 09/16/18 18:00 108 H 25 H 105/65 09/16/18 17:50 74 22 100/57 09/16/18 17:40 90 20 99/62 09/16/18 17:30 98 24 100/79 09/16/18 17:20 95 18 108/66 09/16/18 17:10 95 24 102/63 09/16/18 17:00 105 H 34 H 103/66 09/16/18 16:50 99 33 H 117/63 09/16/18 16:40 98 22 112/71 09/16/18 16:30 107 H 18 105/66 09/16/18 16:20 103 H 27 H 106/65 09/16/18 16:10 101 H 27 H 103/62 09/16/18 16:00 103/62 09/16/18 15:40 101 H 20 103/62 09/16/18 15:30 102 H 22 115/65 09/16/18 15:20 106 H 26 H 109/70 09/16/18 15:10 107 H 15 122/45 09/16/18 15:00 115 H 28 H 101/66 09/16/18 14:50 103 H 25 H 115/76 09/16/18 14:40 89 36 H 121/85 09/16/18 14:30 85 21 112/80 09/16/18 14:20 88 40 H 114/69 09/16/18 14:10 116/72 09/16/18 14:00 111/83 09/16/18 13:56 97.9 F 82 24 120/73 09/16/18 13:50 101/76 09/16/18 13:48 120/73 Pulse Ox 09/17/18 07:39 95 09/17/18 07:05 09/17/18 06:35 09/17/18 04:00 94 L 09/17/18 00:00 94 L 09/16/18 21:14 98 09/16/18 19:10 99 09/16/18 19:00 100 09/16/18 18:50 100 09/16/18 18:40 100 09/16/18 18:30 100 09/16/18 18:20 100 09/16/18 18:10 86 L 09/16/18 18:00 100 09/16/18 17:50 100 09/16/18 17:40 100 09/16/18 17:30 100 09/16/18 17:20 100 09/16/18 17:10 100 09/16/18 17:00 100 09/16/18 16:50 100 09/16/18 16:40 100 09/16/18 16:30 100 09/16/18 16:20 100 09/16/18 16:10 100 09/16/18 16:00 09/16/18 15:40 100 09/16/18 15:30 100 09/16/18 15:20 100 09/16/18 15:10 100 09/16/18 15:00 100 09/16/18 14:50 99 09/16/18 14:40 78 L 09/16/18 14:30 100 09/16/18 14:20 100 09/16/18 14:10 100 09/16/18 14:00 100 09/16/18 13:56 95 09/16/18 13:50 99 09/16/18 13:48 100 Intake and Output 09/16/18 09/17/18 09/17/18 22:59 06:59 14:59 Output Total 10 Balance -10 Output: Emesis 10 Other: # Voids 0 NGeneral appearance: The patient is alert, oriented active nausea vomiting bilious fluid. HET: Head is normocephalic and atraumatic. Pupils are equal and reactive. Oropharynx is clear without lesions. Neck: Supple without lymphadenopathy. Trachea midline. Heart: S1 S2. Regular rate and rhythm. Lungs: No crackles or wheezes are heard. Abdomen: Soft, tenderness to right upper quadrant, nondistended with bowel sounds. No peritoneal signs. No palpable organomegaly or masses. Extremities: Normal skin color and turgor. No cyanosis, rash, ulceration, clubbing, or edema. Radial and pedal pulses are 2/4 bilaterally. Neurological: No focal deficits. Strength and sensation are grossly intact.m Results CBC & Chem 7: 09/17/18 07:36 09/17/18 07:36 Labs: Abnormal Lab Results - Last 24 Hours (Table) 09/16/18 09/16/18 09/16/18 Range/Units 13:50 13:50 13:50 WBC 18.0 H (3.8-10.6) k/uL RBC (3.80-5.40) m/uL Hgb (11.4-16.0) gm/dL Hct (34.0-46.0) % Neutrophils # 15.9 H (1.3-7.7) k/uL APTT (22.0-30.0) sec Chloride 108 H (98-107) mmol/L Carbon Dioxide 19 L (22-30) mmol/L BUN (7-17) mg/dL Glucose 162 H (74-99) mg/dL Plasma Lactic Acid Jluis 5.2 H* (0.7-2.0) mmol/L Calcium 10.3 H (8.4-10.2) mg/dL Total Protein 8.4 H (6.3-8.2) g/dL Albumin (3.5-5.0) g/dL Urine pH (5.0-8.0) Urine Protein (Negative) Urine Ketones (Negative) Urine WBC (0-5) /hpf Urine Mucus (None) /hpf 09/16/18 09/16/18 09/16/18 Range/Units 13:50 14:20 18:15 WBC (3.8-10.6) k/uL RBC (3.80-5.40) m/uL Hgb (11.4-16.0) gm/dL Hct (34.0-46.0) % Neutrophils # (1.3-7.7) k/uL APTT 21.3 L (22.0-30.0) sec Chloride (98-107) mmol/L Carbon Dioxide (22-30) mmol/L BUN (7-17) mg/dL Glucose (74-99) mg/dL Plasma Lactic Acid Jluis 2.7 H* (0.7-2.0) mmol/L Calcium (8.4-10.2) mg/dL Total Protein (6.3-8.2) g/dL Albumin (3.5-5.0) g/dL Urine pH 8.5 H (5.0-8.0) Urine Protein 1+ H (Negative) Urine Ketones 3+ H (Negative) Urine WBC 12 H (0-5) /hpf Urine Mucus Rare H (None) /hpf 09/17/18 09/17/18 09/17/18 Range/Units 01:05 07:36 07:36 WBC (3.8-10.6) k/uL RBC 3.62 L (3.80-5.40) m/uL Hgb 10.8 L D (11.4-16.0) gm/dL Hct 33.0 L (34.0-46.0) % Neutrophils # (1.3-7.7) k/uL APTT (22.0-30.0) sec Chloride 119 H (98-107) mmol/L Carbon Dioxide 19 L (22-30) mmol/L BUN 5 L (7-17) mg/dL Glucose (74-99) mg/dL Plasma Lactic Acid Jluis <0.5 L (0.7-2.0) mmol/L Calcium 7.8 L (8.4-10.2) mg/dL Total Protein 5.3 L (6.3-8.2) g/dL Albumin 2.8 L (3.5-5.0) g/dL Urine pH (5.0-8.0) Urine Protein (Negative) Urine Ketones (Negative) Urine WBC (0-5) /hpf Urine Mucus (None) /hpf CT scan - abdomen: report reviewed (Dr. Meyer) US - abdomen: report reviewed (Dr. Meyer) Assessment and Plan (1) Right upper quadrant abdominal pain Narrative/Plan: 33-year-old female is a history of chronic THC usage, long-standing right upper quadrant abdominal pain with nonbloody emesis. Radiographic imaging report cholelithiasis. Liver function tests are within normal limits and underlying biliary dyskinesia cannot be excluded possible symptomatic chronic THC usage, possible underlying GERD. Current Visit: Yes Status: Acute Code(s): R10.11 - RIGHT UPPER QUADRANT PAIN SNOMED Code(s): 683136187 (2) Nausea & vomiting Current Visit: Yes Status: Acute Code(s): R11.2 - NAUSEA WITH VOMITING, UNSPECIFIED SNOMED Code(s): 71177885 (3) Marijuana smoker Current Visit: Yes Status: Acute Code(s): F12.90 - CANNABIS USE, UNSPECIFIED, UNCOMPLICATED SNOMED Code(s): 257851625 Plan: 1. General surgical consult. Nothing by mouth. Protonix 40 mg twice daily. Neurology has been consulted for her weakness and numbness of extremities. Thank you for this kind referral and the opportunity to participate in the care of your patient. This consultation was discussed with Dr. Meyer. The impression and plan of care have been directed as dictated.
[2018-09-17] MEDS: PROMETHAZINE INJ 6.25 MG in SODIUM CHLORIDE 0.9% 50 ML IVPB PRN ×2 (11:34→22:19)
[2018-09-17] MEDS: HYDROmorphone 0.5 MG/0.5 ML SYRINGE IVP PRN ×2 (11:39→17:31)
--- NOTE | 2018-09-17 11:45 | P.GSCN ---
History of Present Illness Consult date: 09/17/18 Reason for Consult: abdominal pain Requesting physician: Emi Mcneal History of present illness: CHIEF COMPLAINT: abdominal pain HISTORY OF PRESENT ILLNESS: 33-year-old female who presented to the emergency room with a chief complaint of abdominal pain. General surgery was consulted for further evaluation. Patient also presented with confusion, hypertonia, and gait instability. Neurology has been consulted and patient is being worked up for serotonin syndrome. Patient reports intermittent right upper quadrant pain since 2006. She states she has been evaluated before in the emergency room for abdominal pain and usually is given IV narotics and fluids a nd discharged home. She began having right upper quadrant abdominal pain on Saturday after she had attended a BBQ and ate a lot of high fat content foods. She reports nausea and episodes of emesis since Saturday. She currently remains nauseated. She is receiving Zofran. Phenergan has been added this morning per primary medicine. PAST MEDICAL HISTORY: See list. PAST SURGICAL HISTORY: See list. SOCIAL HISTORY: No illicit drug use. REVIEW OF SYSTEMS: CONSTITUTIONAL: Denies fever or chills. HEENT: Denies blurred vision, vision changes, or eye pain. Denies hemoptysis CARDIOVASCULAR: Denies chest pain or pressure. RESPIRATORY: No shortness of breath. GASTROINTESTINAL: Refer to HPI for pertinent findings HEMATOLOGIC: Denies bleeding disorders. GENITOURINARY: Denies any blood in urine. SKIN: Denies pruitis. Denies rash. PHYSICAL EXAM: VITAL SIGNS: Reviewed. GENERAL: Well-developed in no acute distress, although appears unwell. HEENT: No sclera icterus. Extraocular movements grossly intact. Moist buccal mucosa. Head is atraumatic, normocephalic. ABDOMEN: Soft. Nondistended. Tenderness to right upper quadrant. Positive bowel sounds. NEUROLOGIC: Alert and oriented. Cranial nerves II through XII grossly intact. IMAGIN. Gallbladder ultrasound: Cholelithiasis. Positive sonographic Guillaume sign. Gallbladder wall 0.4 cm. Common bile duct 0.[address] abdomen pelvis: No acute findings visualized ASSESSMENT: 1. Symptomatic cholelithiasis PLAN: NPO. Continue IV fluids Continue workup for possible serotonin syndrome Recommend laparoscopic cholecystectomy when medically stable Nurse practitioner note has been reviewed by physician. Signing provider agrees with the documented findings, assessment, and plan of care. Past Medical History Past Medical History: No Reported History Additional Past Medical History / Comment(s): RUQ abdmonial pain several times, no diagnoses, depression, insomnia History of Any Multi-Drug Resistant Organisms: None Reported Past Surgical History: Tubal Ligation Additional Past Surgical History / Comment(s): Right knee scope secondary to meniscal repair, tubal ligation, IUD removed Past Anesthesia/Blood Transfusion Reactions: No Reported Reaction Past Psychological History: Anxiety, Depression Smoking Status: Never smoker Past Alcohol Use History: None Reported Past Drug Use History: None Reported Additional Drug Use History / Comment(s): . - Past Family History Mother Additional Family Medical History / Comment(s): Gallbladder disease Medications and Allergies Home Medications Medication Instructions Recorded Confirmed Type Cholecalciferol [Vitamin D3 (25 5,000 unit PO DAILY 07/15/18 09/16/18 History Mcg = 1000 Iu)] Docusate [Colace] 100 mg PO DAILY 09/16/18 09/16/18 History Pramipexole Di-HCl [Mirapex] 0.75 mg PO HS 09/16/18 09/16/18 History Ranitidine HCl [Zantac] 150 mg PO BID 09/16/18 09/16/18 History Venlafaxine HCl ER [Effexor XR] 225 mg PO HS 09/16/18 09/16/18 History traZODone HCL [Desyrel] 50 - 100 mg PO HS 09/16/18 09/16/18 History Allergies Allergy/AdvReac Type Severity Reaction Status Date / Time Sulfa (Sulfonamide Allergy Severe Dyspnea Verified 09/16/18 14:17 Antibiotics) codeine Allergy Itching Verified 09/16/18 14:17 Surgical - Exam Vital Signs BP Pulse Ox 120/73 100 09/16/18 13:48 09/16/18 13:48 Results - Labs 09/17/18 07:36 09/17/18 07:36 Abnormal Lab Results - Last 24 Hours (Table) 09/16/18 09/16/18 09/16/18 Range/Units 13:50 13:50 13:50 WBC 18.0 H (3.8-10.6) k/uL RBC (3.80-5.40) m/uL Hgb (11.4-16.0) gm/dL Hct (34.0-46.0) % Neutrophils # 15.9 H (1.3-7.7) k/uL APTT (22.0-30.0) sec Chloride 108 H (98-107) mmol/L Carbon Dioxide 19 L (22-30) mmol/L BUN (7-17) mg/dL Glucose 162 H (74-99) mg/dL Plasma Lactic Acid Jluis 5.2 H* (0.7-2.0) mmol/L Calcium 10.3 H (8.4-10.2) mg/dL Total Protein 8.4 H (6.3-8.2) g/dL Albumin (3.5-5.0) g/dL Urine pH (5.0-8.0) Urine Protein (Negative) Urine Ketones (Negative) Urine WBC (0-5) /hpf Urine Mucus (None) /hpf 09/16/18 09/16/18 09/16/18 Range/Units 13:50 14:20 18:15 WBC (3.8-10.6) k/uL RBC (3.80-5.40) m/uL Hgb (11.4-16.0) gm/dL Hct (34.0-46.0) % Neutrophils # (1.3-7.7) k/uL APTT 21.3 L (22.0-30.0) sec Chloride (98-107) mmol/L Carbon Dioxide (22-30) mmol/L BUN (7-17) mg/dL Glucose (74-99) mg/dL Plasma Lactic Acid Jluis 2.7 H* (0.7-2.0) mmol/L Calcium (8.4-10.2) mg/dL Total Protein (6.3-8.2) g/dL Albumin (3.5-5.0) g/dL Urine pH 8.5 H (5.0-8.0) Urine Protein 1+ H (Negative) Urine Ketones 3+ H (Negative) Urine WBC 12 H (0-5) /hpf Urine Mucus Rare H (None) /hpf 09/17/18 09/17/18 09/17/18 Range/Units 01:05 07:36 07:36 WBC (3.8-10.6) k/uL RBC 3.62 L (3.80-5.40) m/uL Hgb 10.8 L D (11.4-16.0) gm/dL Hct 33.0 L (34.0-46.0) % Neutrophils # (1.3-7.7) k/uL APTT (22.0-30.0) sec Chloride 119 H (98-107) mmol/L Carbon Dioxide 19 L (22-30) mmol/L BUN 5 L (7-17) mg/dL Glucose (74-99) mg/dL Plasma Lactic Acid Jluis <0.5 L (0.7-2.0) mmol/L Calcium 7.8 L (8.4-10.2) mg/dL Total Protein 5.3 L (6.3-8.2) g/dL Albumin 2.8 L (3.5-5.0) g/dL Urine pH (5.0-8.0) Urine Protein (Negative) Urine Ketones (Negative) Urine WBC (0-5) /hpf Urine Mucus (None) /hpf Diabetes panel 09/16/18 09/17/18 Range/Units 13:50 07:36 Sodium 141 142 (137-145) mmol/L Potassium 4.4 3.5 (3.5-5.1) mmol/L Chloride 108 H 119 H (98-107) mmol/L Carbon Dioxide 19 L 19 L (22-30) mmol/L BUN 10 5 L (7-17) mg/dL Creatinine 0.74 0.73 (0.52-1.04) mg/dL Glucose 162 H 86 (74-99) mg/dL Calcium 10.3 H 7.8 L (8.4-10.2) mg/dL AST 31 15 (14-36) U/L ALT 15 12 (9-52) U/L Alkaline Phosphatase 98 53 (38-126) U/L Total Protein 8.4 H 5.3 L (6.3-8.2) g/dL Albumin 4.9 2.8 L (3.5-5.0) g/dL Calcium panel 09/16/18 09/17/18 Range/Units 13:50 07:36 Calcium 10.3 H 7.8 L (8.4-10.2) mg/dL Phosphorus 3.1 (2.5-4.5) mg/dL Albumin 4.9 2.8 L (3.5-5.0) g/dL Pituitary panel 09/16/18 09/17/18 Range/Units 13:50 07:36 Sodium 141 142 (137-145) mmol/L Potassium 4.4 3.5 (3.5-5.1) mmol/L Chloride 108 H 119 H (98-107) mmol/L Carbon Dioxide 19 L 19 L (22-30) mmol/L BUN 10 5 L (7-17) mg/dL Creatinine 0.74 0.73 (0.52-1.04) mg/dL Glucose 162 H 86 (74-99) mg/dL Calcium 10.3 H 7.8 L (8.4-10.2) mg/dL Adrenal panel 09/16/18 09/17/18 Range/Units 13:50 07:36 Sodium 141 142 (137-145) mmol/L Potassium 4.4 3.5 (3.5-5.1) mmol/L Chloride 108 H 119 H (98-107) mmol/L Carbon Dioxide 19 L 19 L (22-30) mmol/L BUN 10 5 L (7-17) mg/dL Creatinine 0.74 0.73 (0.52-1.04) mg/dL Glucose 162 H 86 (74-99) mg/dL Calcium 10.3 H 7.8 L (8.4-10.2) mg/dL Total Bilirubin 0.8 0.4 (0.2-1.3) mg/dL AST 31 15 (14-36) U/L ALT 15 12 (9-52) U/L Alkaline Phosphatase 98 53 (38-126) U/L Total Protein 8.4 H 5.3 L (6.3-8.2) g/dL Albumin 4.9 2.8 L (3.5-5.0) g/dL
[2018-09-17] MEDS: LORazepam 2 MG/ML INJ IV PRN ×2 (11:46→17:31)
--- NOTE | 2018-09-17 15:59 | P.CNNES ---
History of Present Illness Consult date: 09/17/18 Reason for Consult: Rule out serotonin syndrome History of Present Illness: Patient is a 33-year-old female who has history of depression, follows up with [facility], also had episodes of right biliary colic from gallstones off and on since 2006. It would occur once every 2 weeks or once a month, lasting for a day. The last episode occurred 6-7 months ago. Patient had same episode started yesterday with severe pain, which was more intense than usual, and has been persistent for these 2 days. Yesterday she started throwing up. Patient says that she was noticing weakness in the legs, difficulty walking yesterday at noon. Later she noticed that her legs were numb and stiff from knees down bilaterally, and her hands feels numb, heavy and stiff. Patient denies any neck pain, but does have some lower back pain off and on. Patient has some adjustment of her psych medications, therefore there was some concern for serotonin syndrome. Her blood pressure has been normal, in fact slightly low. Temperature is normal. Patient denies any history of stroke like symptoms, facial droop slurred speech loss of vision double vision. She denies any tobacco, drinks alcohol once in a while. No drugs. She used to smoke marijuana but not anymore. Patient states she has history of B12 deficiency, for which she takes vitamin B12 orally daily but does not know the dose. Her last hemoglobin A1c was 5.0. Liver functions normal, lipid panel with cholesterol 151, LDL 86. TSH normal on 07/16/2018. Her CBC with WBC 8.4 hemoglobin 10.8 normal platelets. CPK normal 100. Patient had computed tomography scan of the head performed yesterday which was normal. Review of Systems As per HPI. Denies chest pain, shortness of breath. Does have abdominal pain. Past Medical History Past Medical History: No Reported History Additional Past Medical History / Comment(s): RUQ abdmonial pain several times, no diagnoses, depression, insomnia History of Any Multi-Drug Resistant Organisms: None Reported Past Surgical History: Tubal Ligation Additional Past Surgical History / Comment(s): Right knee scope secondary to meniscal repair, tubal ligation, IUD removed Past Anesthesia/Blood Transfusion Reactions: No Reported Reaction Past Psychological History: Anxiety, Depression Smoking Status: Never smoker Past Alcohol Use History: None Reported Past Drug Use History: None Reported Additional Drug Use History / Comment(s): . - Past Family History Mother Additional Family Medical History / Comment(s): Gallbladder disease Medications and Allergies Home Medications Medication Instructions Recorded Confirmed Type Cholecalciferol [Vitamin D3 (25 5,000 unit PO DAILY 07/15/18 09/16/18 History Mcg = 1000 Iu)] Docusate [Colace] 100 mg PO DAILY 09/16/18 09/16/18 History Pramipexole Di-HCl [Mirapex] 0.75 mg PO HS 09/16/18 09/16/18 History Ranitidine HCl [Zantac] 150 mg PO BID 09/16/18 09/16/18 History Venlafaxine HCl ER [Effexor XR] 225 mg PO HS 09/16/18 09/16/18 History traZODone HCL [Desyrel] 50 - 100 mg PO HS 09/16/18 09/16/18 History Allergies Allergy/AdvReac Type Severity Reaction Status Date / Time Sulfa (Sulfonamide Allergy Severe Dyspnea Verified 09/16/18 14:17 Antibiotics) codeine Allergy Itching Verified 09/16/18 14:17 Physical Examination - Vital Signs Vital Signs: Vital Signs Temp Pulse Pulse Pulse Resp BP BP 09/17/18 15:11 85 16 100/64 09/17/18 11:59 70 16 117/79 09/17/18 07:39 97.8 F 107 H 107 H 16 95/59 09/17/18 07:05 103 H 95/59 09/17/18 06:35 103 H 119/65 09/17/18 04:00 97.6 F 113 H 18 90/61 09/17/18 00:00 98.6 F 126 H 18 98/48 09/16/18 21:14 09/16/18 19:10 16 126/73 09/16/18 19:00 100 30 H 126/74 09/16/18 18:50 107 H 17 132/71 09/16/18 18:40 114 H 17 122/74 09/16/18 18:30 105 H 34 H 120/68 09/16/18 18:20 112 H 21 116/66 09/16/18 18:10 102 H 19 107/70 09/16/18 18:00 108 H 25 H 105/65 09/16/18 17:50 74 22 100/57 09/16/18 17:40 90 20 99/62 09/16/18 17:30 98 24 100/79 09/16/18 17:20 95 18 108/66 09/16/18 17:10 95 24 102/63 09/16/18 17:00 105 H 34 H 103/66 09/16/18 16:50 99 33 H 117/63 09/16/18 16:40 98 22 112/71 09/16/18 16:30 107 H 18 105/66 09/16/18 16:20 103 H 27 H 106/65 09/16/18 16:10 101 H 27 H 103/62 09/16/18 16:00 103/62 Pulse Ox 09/17/18 15:11 99 09/17/18 11:59 97 09/17/18 07:39 95 09/17/18 07:05 09/17/18 06:35 09/17/18 04:00 94 L 09/17/18 00:00 94 L 09/16/18 21:14 98 09/16/18 19:10 99 09/16/18 19:00 100 09/16/18 18:50 100 09/16/18 18:40 100 09/16/18 18:30 100 09/16/18 18:20 100 09/16/18 18:10 86 L 09/16/18 18:00 100 09/16/18 17:50 100 09/16/18 17:40 100 09/16/18 17:30 100 09/16/18 17:20 100 09/16/18 17:10 100 09/16/18 17:00 100 09/16/18 16:50 100 09/16/18 16:40 100 09/16/18 16:30 100 09/16/18 16:20 100 09/16/18 16:10 100 09/16/18 16:00 Intake and Output 09/17/18 09/17/18 09/17/18 06:59 14:59 22:59 Intake Total 550 Output Total 10 150 Balance -10 400 Intake: Intake, IV Titration 550 Amount Promethazine Inj 6.25 mg 50 In Sodium Chloride 0.9% 50 ml @ 200 mls/hr IVPB Q6HR PRN Rx#:[id number] Sodium Chloride 0.45% 1, 500 000 ml @ 100 mls/hr IV . Q10H [facility] Rx#:[id number] Output: Emesis 10 150 Other: # Voids 2 # Bowel Movements 1 On examination patient is a young female, who is somnolent, as she has received Roebling and Ativan. Patient is fully oriented. Speech and language fun ctions are normal. Cranialpupils are round and reacting, visual marrero are full, face is symmetric and tongue protrudes in midline. Palatal elevation sensation normal. On muscle strength testing the strength appears normal in the arms and legs. She has slow mentation, increased latency, but the strength did appear normal on reinforcement. Reflexes are 2+ in the upper limbs, 3+ at the knees, 2+ at ankles and plantars are downgoing no clonus. No ataxia for [id number] or nbns-nt-fhch testing although patient has difficulty doing [id number]-grzm testing due to abdominal pain. Results - Laboratory Findings CBC and BMP: 09/17/18 07:36 09/17/18 07:36 Abnormal Lab Findings: Abnormal Labs 09/16/18 09/16/18 09/16/18 13:50 13:50 13:50 WBC 18.0 H RBC Hgb Hct Neutrophils # 15.9 H APTT Chloride 108 H Carbon Dioxide 19 L BUN Glucose 162 H Plasma Lactic Acid Jluis 5.2 H* Calcium 10.3 H Total Protein 8.4 H Albumin Urine pH Urine Protein Urine Ketones Urine WBC Urine Mucus 09/16/18 09/16/18 09/16/18 13:50 14:20 18:15 WBC RBC Hgb Hct Neutrophils # APTT 21.3 L Chloride Carbon Dioxide BUN Glucose Plasma Lactic Acid Jluis 2.7 H* Calcium Total Protein Albumin Urine pH 8.5 H Urine Protein 1+ H Urine Ketones 3+ H Urine WBC 12 H Urine Mucus Rare H 09/17/18 09/17/18 09/17/18 01:05 07:36 07:36 WBC RBC 3.62 L Hgb 10.8 L D Hct 33.0 L Neutrophils # APTT Chloride 119 H Carbon Dioxide 19 L BUN 5 L Glucose Plasma Lactic Acid Jluis <0.5 L Calcium 7.8 L Total Protein 5.3 L Albumin 2.8 L Urine pH Urine Protein Urine Ketones Urine WBC Urine Mucus Assessment and Plan Assessment: * Subjective leg weakness, numbness, unclear etiology. Patient claims she has h istory of B12 deficiency. Patient is on oral B12 replacement. Her current examination is nonfocal except for some brisk reflexes at the knees, but her ankles are normal, with no ankle clonus or Babinski sign. * No clinical evidence of serotonin syndrome. Her temperature, blood pressure, CPK are normal. * Abdominal pain, probable gallstones. Plan: Will check B12, folate Neurologically patient clear for surgery. We will follow patient clinically.
[2018-09-18] MEDS: HYDROmorphone 0.5 MG/0.5 ML SYRINGE IVP PRN ×5 (02:19→22:18)
[2018-09-18] MEDS: ONDANSETRON 4 MG/2 ML VIAL IVP PRN ×2 (02:21→08:57)
[2018-09-18] MEDS: SODIUM CHLORIDE 0.45% 1,000 ML IV SCH ×2 (05:20→18:50)
[2018-09-18] MEDS: PROMETHAZINE INJ 6.25 MG in SODIUM CHLORIDE 0.9% 50 ML IVPB PRN (05:27)
[2018-09-18] MEDS: PIPERACILLIN-TAZOBACTAM 3.375 GM in SODIUM CHLORIDE 0.9% 100 ML IVPB SCH (06:35)
[2018-09-18] MEDS ORDERED: IV FLUID CONTINUATION 1,000 ML IV ONE (07:19)
[2018-09-18] MEDS ORDERED: ONDANSETRON 4 MG/2 ML VIAL IVP ONE (07:28)
[2018-09-18] MEDS ORDERED: DEXAMETHASONE SOD PHOS (MDV) 100 MG/10 ML VIAL IVP ONE (07:29)
[2018-09-18 07:30] LABS: Basophils % (A) 0 %; Eosinophils # (A) 0.1 k/uL (0-0.7); Eosinophils % (A) 1 %; HCT 35.2 % (34.0-46.0); HGB 11.6 gm/dL (11.4-16.0); Lymphocytes # (A) 2.3 k/uL (1.0-4.8); Lymphocytes % (A) 24 %; MCH 29.7 pg (25.0-35.0); MCHC 32.9 g/dL (31.0-37.0); MCV 90.3 fL (80.0-100.0); Mean Platelet Volume 7.2; Monocytes # (A) 0.5 k/uL (0-1.0); Monocytes % (A) 6 %; Neutrophils # (A) 6.4 k/uL (1.3-7.7); Neutrophils % (A) 67 %; Platelet Count 200 k/uL (150-450); RDW 13.9 % (11.5-15.5); WBC 9.5 k/uL (3.8-10.6)
[2018-09-18 07:37] LABS: Anion Gap 7 mmol/L; Blood Urea Nitrogen 4 mg/dL (7-17); Calcium 8.7 mg/dL (8.4-10.2); Carbon Dioxide 21 mmol/L (22-30); Chloride 111 mmol/L (98-107); Glucose 73 mg/dL (74-99); Potassium 3.3 mmol/L (3.5-5.1); Sodium 139 mmol/L (137-145)
[2018-09-18] MEDS ORDERED: HEPARIN SODIUM,PORCINE 5,000 UNIT/ML 1 ML VIAL SQ ONE (07:40)
[2018-09-18] MEDS ORDERED: GLYCOPYRROLATE 0.2 MG/ML 2 ML VIAL ONE (07:44)
[2018-09-18] MEDS ORDERED: LIDOCAINE 1% INJ 10MG/ML (20 ML MDV) ONE (07:44)
[2018-09-18] MEDS ORDERED: fentaNYL (PF) 50 MCG/ML 2 ML AMP ONE (07:44)
[2018-09-18] MEDS ORDERED: KETOROLAC 30 MG/ML 1 ML VIAL ONE (07:44)
[2018-09-18] MEDS ORDERED: NEOSTIGMINE 1 MG/ML 10 ML VIAL ONE (07:44)
[2018-09-18] MEDS ORDERED: PROPOFOL 10 MG/ML 20 ML VIAL IV ONE (07:44)
[2018-09-18] MEDS ORDERED: SUCCINYLCHOLINE CHLORIDE 100 MG/5 ML SYR IV ONE (07:44)
[2018-09-18] MEDS ORDERED: HYDROmorphone (PF) 1 MG/ML ONE (07:44)
[2018-09-18] MEDS ORDERED: ROCURONIUM BROMIDE 10 MG/ML 10 ML VIAL IV ONE (07:44)
[2018-09-18] MEDS ORDERED: MIDAZOLAM 2 MG/2 ML VIAL ONE (07:44)
[2018-09-18] MEDS ORDERED: LACTATED RINGERS 1,000 ML IV ONE (08:00)
[2018-09-18] MEDS ORDERED: BUPIVACAIN-EPI 0.25%-1:200,000 30 ML VIAL IJ ONE ×2 (08:14→08:17)
[2018-09-18] MEDS ORDERED: KETOROLAC 30 MG/ML 1 ML VIAL IVP ONE (08:58)
[2018-09-18] MEDS: HYDROmorphone 1 MG/ML 1 ML SYRINGE IVP ONE ×4 (08:58→09:25)
--- NOTE | 2018-09-18 09:04 | P.OP ---
Date of Procedure: 09/18/18 Preoperative Diagnosis: Acute cholecystitis Postoperative Diagnosis: Cholecystitis with patchy necrosis of gallbladder Procedure(s) Performed: Laparoscopic cholecystectomy Anesthesia: MCKENNA Surgeon: Raymundo Jj Pathology: other (Gallbladder) Condition: stable Disposition: PACU Description of Procedure: The patient was placed on the operating table. The patient received a general endotracheal tube anesthesia. The patients abdomen was prepped and draped in the usual sterile fashion. Through an infraumbilical stab incision, the fascia of the anterior abdominal wall was grasped with a pair of Kochers and then the Veress needle was placed in the peritoneal cavity. Position of the Ve ress needle was confirmed with positive drop test. The abdomen was then insufflated. After adequate insufflation, the 10 mm trocar was placed in the peritoneal cavity. Following this the laparoscope was placed in the peritoneal cavity. The patient was placed in the head-up, right side up position and then a 5 mm trocar was placed in the right lateral and right subcostal position under direct visualization. A 8 mm trocar was placed in the epigastric position. The gallbladder was grasped in the fundus and infundibulum. The gallbladder appeared to be acutely inflamed. There is evidence of patchy necrosis. Traction on the gallbladder was placed in the lateral and the cephalad positions. The triangle of Calot was visualized.. The cystic duct was bluntly dissected until the union of the cystic duct and common bile duct was seen. A critical view of safety was achieved. The cystic duct was then divided and sealed with the Harmonic scissors. A PDS Endoloop was then placed throughout the cystic duct stump. The cystic artery divided and sealed with the Harmonic scissors. The gallbladder was then removed from the liver bed using Harmonic scissors. The gallbladder was then extracted through the epigastric port site. Operative field was checked for any bleeding spots and Harmonic scissors was used to coagulate the liver bed. The abdomen was irrigated. The trocars were removed. The skin was closed using interrupted 3-0 Vicryl suture. Dermabond dressing were applied. The patient tolerated the procedure well.
[2018-09-18] MEDS: ENOXAPARIN 40 MG/0.4 ML SYRINGE SQ SCH (09:58)
--- NOTE | 2018-09-18 10:30 | P.PN ---
Subjective Progress Note Date: 09/18/18 Principal diagnosis: abdominal pain Patient is a 33-year-old female with a past medical history of chronic abdominal pain since 2006, depression, insomnia, and THC use who presented to the ER via private vehicle secondary to abdominal pain and confusion. In the ER she underwent an extensive evaluation. On arrival her vital signs were within normal limits. However during her evaluation her heart rate became elevated at 103 and respiratory rate became elevated at 25. Initially she was confused but this improved after IV fluids. Initial laboratory analysis demonstrated a white blood cell count of 18, carbon dioxide of 19, anion gap 14, lactic acid of 5.2, calcium 10.3, and elevated protein at 8.4. CT abdomen and pelvis was negative. There is concern for possible ascending cholangitis. She was started on Zosyn and IV fluids. Dr. Jj was consulted. Gallbladder ultrasound ordered and showed cholelithiasis. She was admitted for further monitoring. There was concern for serotonin syndrome as her Effexor had recently been increased and she is on trazodone. She had hypertonia, hyperreflexia, tachycardia, and confusion on arrival. She also reported stiff muscles. Her Effexor and trazodone were stopped. She was placed on IV fluids. On the morning of 09/17 she continued to have nausea and vomiting. She continued to have right upper quadrant abdominal pain. She was seen by general surgery and ultimately had lap maria esther on 09/18. Patient seen and examined at bedside mother present. Abdominal pain less than prior to surgery, some nausea, no head, no chest pain or shortness of breath. Objective - Vital Signs Vital signs: Vital Signs Temp 96.9 F L 09/18/18 08:45 Pulse 93 09/18/18 09:31 Resp 16 09/18/18 09:31 BP 102/54 09/18/18 09:31 Pulse Ox 93 L 09/18/18 09:31 Intake & Output 09/17/18 09/18/18 09/18/18 18:59 06:59 18:59 Intake Total 446 938 4944 Output Total 150 0 5 Balance 088 626 9144 Weight 69.5 kg Intake: IV 1350 Intake, IV Titration 550 950 Amount Promethazine Inj 6.25 mg 50 50 In Sodium Chloride 0.9% 50 ml @ 200 mls/hr IVPB Q6HR PRN Rx#:[id number] Sodium Chloride 0.45% 1, 500 900 000 ml @ 100 mls/hr IV . Q10H [facility] Rx#:[id number] Oral 0 Output: Urine 0 Emesis 150 Estimated Blood Loss 5 Other: Voiding Method Bedside Commode # Voids 2 1 # Bowel Movements 1 - Exam General: ill appearing, no distress, appears at stated age Derm: warm, dry Head: atraumatic, normocephalic, symmetric Eyes: EOMI, no lid lag, anicteric sclera Mouth: no lip lesion, mucus membranes moist Cardiovascular: S1S2 reg, no murmur, positive posterior tibial pulse bilateral, Lungs: CTA bilateral, no rhonchi, no rales , no accessory muscle use Abdominal: soft, +tender to palpation , no guarding, no appreciable organomegaly Ext: no gross muscle atrophy, no edema, no contractures Neuro: CN II-XI grossly intact, no focal neuro deficits Psych: Alert, oriented, anxious and tearful - Labs CBC & Chem 7: 09/18/18 07:04 09/18/18 07:04 Labs: Abnormal Lab Results - Last 24 Hours (Table) 09/18/18 Range/Units 07:04 Potassium 3.3 L (3.5-5.1) mmol/L Chloride 111 H (98-107) mmol/L Carbon Dioxide 21 L (22-30) mmol/L BUN 4 L (7-17) mg/dL Glucose 73 L (74-99) mg/dL Microbiology - Last 24 Hours (Table) 09/16/18 13:50 Blood Culture - Preliminary Blood No Growth after 24 hours Assessment and Plan Assessment: Symptomatic cholelithiasis s/p lap maria esther, nectrotic gallbladder - Surgery recs appreciated - CT abd/pelvis negative -Continue with IV fluids -D/C zosyn -GI recommendations appreciated -Urinalysis negative -IV Protonix -Nothing by mouth with ice chips - pain control, antiemetics Intractable nausea and vomiting, improving - IVF - Add phenergan as zofran not working Probable serotonin syndrome- Lower extremity hypertonia, shivering, hyperreflexia, associated with gait instability -Hold trazodone and Effexor - hold mirapex -neurology recs appreciated -CPK and temperature normal point against something such as neuroleptic malignant syndrome - Telemetry Hyperchloremic metabolic acidosis, improving -IV fluids 0.45 -Follow basic metabolic profile Depression with recent mental health admission -We will hold Effexor and trazodone at this time -Has been taken off Abilify recently -Follow up outpatient at [facility] DVT prophylaxis: Lovenox Discussed with: Patient Surgery, Mother Anticipated discharge date: [address]: home A total of 25 minutes was spent on the care of this complex patient more than 50% of the time was spent in counseling and care coordination.
[2018-09-18] MEDS: PANTOPRAZOLE 40 MG/10 ML VIAL IVP SCH (13:29)
--- NOTE | 2018-09-18 15:22 | P.PN ---
Subjective Progress Note Date: 09/18/18 Principal diagnosis: Abdominal pain nausea vomiting Status post laparoscopic cholecystectomy today. Presently recovering no active nausea or emesis. LFTs normal yesterday. No fevers. Objective - Vital Signs Vital signs: Vital Signs Temp 98.1 F 09/18/18 09:45 Pulse 103 H 09/18/18 09:45 Resp 16 09/18/18 09:45 BP 113/61 09/18/18 09:45 Pulse Ox 96 09/18/18 09:45 Intake & Output 09/17/18 09/18/18 09/18/18 18:59 06:59 18:59 Intake Total 401 170 5187 Output Total 150 0 5 Balance 753 311 0942 Weight 69.5 kg Intake: IV 1350 Intake, IV Titration 550 950 Amount Promethazine Inj 6.25 mg 50 50 In Sodium Chloride 0.9% 50 ml @ 200 mls/hr IVPB Q6HR PRN Rx#:[id number] Sodium Chloride 0.45% 1, 500 900 000 ml @ 100 mls/hr IV . Q10H [facility] Rx#:[id number] Oral 0 Output: Urine 0 Emesis 150 Estimated Blood Loss 5 Other: Voiding Method Bedside Commode Bedside Commode # Voids 2 1 # Bowel Movements 1 - Exam General appearance: The patient is alert, oriented, in no acute distress. HET: Head is normocephalic and atraumatic. Pupils are equal and reactive. Oropharynx is clear without lesions. Neck: Supple without lymphadenopathy. Trachea midline. Heart: S1 S2. Regular rate and rhythm. Lungs: No crackles or wheezes are heard. Abdomen: Soft, incisional tenderness, nondistended with bowel sounds. No peritoneal signs. No palpable organomegaly or masses. Extremities: Normal skin color and turgor. No cyanosis, rash, ulceration, clubbing, or edema. Radial and pedal pulses are 2/4 bilaterally. Neurological: No focal deficits. Strength and sensation are grossly intact. - Labs CBC & Chem 7: 09/18/18 07:04 09/18/18 07:04 Labs: Abnormal Lab Results - Last 24 Hours (Table) 09/18/18 Range/Units 07:04 Potassium 3.3 L (3.5-5.1) mmol/L Chloride 111 H (98-107) mmol/L Carbon Dioxide 21 L (22-30) mmol/L BUN 4 L (7-17) mg/dL Glucose 73 L (74-99) mg/dL Microbiology - Last 24 Hours (Table) 09/16/18 13:50 Blood Culture - Preliminary Blood No Growth after 24 hours Assessment and Plan (1) Right upper quadrant abdominal pain Current Visit: Yes Status: Acute Code(s): R10.11 - RIGHT UPPER QUADRANT PAIN SNOMED Code(s): 220384795 (2) Status post laparoscopic cholecystectomy Current Visit: Yes Status: Acute Code(s): Z90.49 - ACQUIRED ABSENCE OF OTHER SPECIFIED PARTS OF DIGESTIVE TRACT SNOMED Code(s): 485858586 (3) Nausea & vomiting Current Visit: Yes Status: Acute Code(s): R11.2 - NAUSEA WITH VOMITING, UNSPECIFIED SNOMED Code(s): 08857897 (4) Marijuana smoker Current Visit: Yes Status: Acute Code(s): F12.90 - CANNABIS USE, UNSPECIFIED, UNCOMPLICATED SNOMED Code(s): 893898095 Plan: 1. Continue with present medical therapy. Diet per surgery. Case discussed with attending Dr. Mei no further workup from a GI standpoint will follow on an as-needed basis. Assessment and plan a care discussed with Dr. Meyer
[2018-09-19] MEDS: HYDROmorphone 0.5 MG/0.5 ML SYRINGE IVP PRN ×3 (01:18→11:32)
[2018-09-19] MEDS: SODIUM CHLORIDE 0.45% 1,000 ML IV SCH ×2 (02:31→11:33)
[2018-09-19 07:00] LABS: HCT 33.9 % (34.0-46.0); HGB 11.2 gm/dL (11.4-16.0); MCHC 33.2 g/dL (31.0-37.0); MCV 90.6 fL (80.0-100.0); Mean Platelet Volume 7.8; Platelet Count 183 k/uL (150-450); RBC 3.74 m/uL (3.80-5.40); RDW 13.5 % (11.5-15.5); WBC 8.1 k/uL (3.8-10.6)
[2018-09-19 07:12] LABS: ALT 21 U/L (9-52); AST 26 U/L (14-36); Albumin 3.2 g/dL (3.5-5.0); Alkaline Phosphatase 51 U/L (38-126); Anion Gap 6 mmol/L; Blood Urea Nitrogen 3 mg/dL (7-17); Calcium 8.5 mg/dL (8.4-10.2); Carbon Dioxide 23 mmol/L (22-30); Chloride 111 mmol/L (98-107); Glucose 76 mg/dL (74-99); Potassium 3.7 mmol/L (3.5-5.1); Sodium 140 mmol/L (137-145); Total Bilirubin 0.4 mg/dL (0.2-1.3); Total Protein 5.9 g/dL (6.3-8.2)
[2018-09-19] MEDS: HYDROcodone/APAP 5-325MG 1 EACH TAB PO PRN (10:11)
[2018-09-19] MEDS: ENOXAPARIN 40 MG/0.4 ML SYRINGE SQ SCH (10:12)
[2018-09-19] MEDS: PANTOPRAZOLE 40 MG/10 ML VIAL IVP SCH (10:13)
--- NOTE | 2018-09-19 11:51 | P.DS ---
Providers Date of admission: 09/17/18 09:37 Expected date of discharge: 09/19/18 Attending physician: Emi Mcneal DO Consults: 09/16/18 17:08 Consult Physician Routine Consulting Provider: Raymundo Jj Consult Reason/Comments: Ab Pain Do you want consulting provider notified?: Already Contacted 09/16/18 20:52 Consult Physician Routine Consulting Provider: Brodie Robison Consult Reason/Comments: hypertonia, concern for serotonin syndrome Do you want consulting provider notified?: Yes Primary care physician: [facility] Course: Discharge Diagnosis: symptomatic cholelithiasis status post lap jenny with necrotic gallbladder probable serotonin syndrome Hyperchloremic metabolic acidosis Depression Hospital Course: Patient is a 33-year-old female with a past medical history of chronic abdominal pain since 2006, depression, insomnia, and THC use who presented to the ER via private vehicle secondary to abdominal pain and confusion. In the ER she underwent an extensive evaluation. On arrival her vital signs were within normal limits. However during her evaluation her heart rate became elevated at 103 and respiratory rate became elevated at 25. Initially she was confused but this improved after IV fluids. Initial laboratory analysis demonstrated a white blood cell count of 18, carbon dioxide of 19, anion gap 14, lactic acid of 5.2, calcium 10.3, and elevated protein at 8.4. CT abdomen and pelvis was negative. There is concern for possible ascending cholangitis. She was started on Zosyn and IV fluids. Dr. Jj was consulted. Gallbladder ultrasound ordered and showed cholelithiasis. She was admitted for further monitoring. There was concern for serotonin syndrome as her Effexor had recently been increased and she is on trazodone. She had hypertonia, hyperreflexia, tachycardia, and confusion on arrival. She also reported stiff muscles. Her Effexor and trazodone were stopped. She was placed on IV fluids. On the morning of 09/17 she continued to have nausea and vomiting. She continued to have right upper quadrant abdominal pain. She was seen by general surgery and ultimately had lap jenny on 09/18 she tolerated the procedure well. Her neuro symotoms resolved. She will restart on effox but at a lower dose of 150 mg. She will follow with her psychiatrist as soon as possible. She was determned stable for discharge. She was given an RX for [place] 5/325mg #18. She will follow with [facility]. Patient seen and examined at bedside.feeling much better. Nausea and abdominal pain greatly improved. Tolerating a diet. Wanting to stay off Effexor completely, however I'm afraid she will have withdrawal symptoms. I placed on a lower dose 150 mg daily. Per her mother in agreement with this plan and will follow up with [facility] as soon as able. Vital signs reviewed and stable. General: non toxic, no distress, appears at stated age Derm: warm, dry Head: atraumatic, normocephalic, symmetric Eyes: EOMI, no lid lag, anicteric sclera Mouth: no lip lesion, mucus membranes moist Cardiovascular: S1S2 reg, no murmur, positive posterior tibial pulse bilateral, Lungs: CTA bilateral, no rhonchi, no rales , no accessory muscle use Abdominal: soft, + tender to palpation RUQ, no guarding, no appreciable organomegaly Ext: no gross muscle atrophy, no edema, no contractures Neuro: CN II-XI grossly intact, no focal neuro deficits Psych: Alert, oriented, appropriate affect A total of 35 minutes of time were spent preparing this complex discharge summary . Pertinent Studies: CT abd/ pelvis- no acute process US Gallbladder- Cholelithiasis CT Brain- No acute process Procedures: Lap Jenny 09/18 Patient Condition at Discharge: Good Plan - Discharge Summary New Discharge Prescriptions: New Hydrocodone/Acetaminophen [[place] 5-325] 1 tab PO Q4HR PRN 3 Days #18 tab PRN Reason: Pain Venlafaxine HCl ER [Effexor Xr] 150 mg PO DAILY #30 cap Continue Cholecalciferol [Vitamin D3 (25 Mcg = 1000 Iu)] 5,000 unit PO DAILY traZODone HCL [Desyrel] 50 - 100 mg PO HS Ranitidine HCl [Zantac] 150 mg PO BID Docusate [Colace] 100 mg PO DAILY Pramipexole Di-HCl [Mirapex] 0.75 mg PO HS Discontinued Venlafaxine HCl ER [Effexor XR] 225 mg PO HS Discharge Medication List Cholecalciferol [Vitamin D3 (25 Mcg = 1000 Iu)] 5,000 unit PO DAILY 07/15/18 [History] Docusate [Colace] 100 mg PO DAILY 09/16/18 [History] Pramipexole Di-HCl [Mirapex] 0.75 mg PO HS 09/16/18 [History] Ranitidine HCl [Zantac] 150 mg PO BID 09/16/18 [History] traZODone HCL [Desyrel] 50 - 100 mg PO HS 09/16/18 [History] Hydrocodone/Acetaminophen [[place] 5-325] 1 tab PO Q4HR PRN 3 Days #18 tab 09/19/18 [Rx] Venlafaxine HCl ER [Effexor Xr] 150 mg PO DAILY #30 cap 09/19/18 [Rx] Follow up Appointment(s)/Referral(s): [facility] [Primary Care Provider] - 10/01/18 7:30 am (Saturday) Raymundo Jj MD [STAFF PHYSICIAN] - 09/25/18 3:00 pm () Patient Instructions/Handouts: *Surgery [facility] - Laparoscopic Cholecystectomy Discharge Instructions Activity/Diet/Wound Care/Special Instructions: No driving while taking [place] No lifting over 10 pounds You may shower. No soaking or tub baths Very light activity until you are reevaluated at your follow up appointment with your surgeon Follow up with your psychiatrist as soon as able.
--- NOTE | 2018-09-19 12:31 | P.PN ---
Subjective Progress Note Date: 09/19/18 CHIEF COMPLAINT: abdominal pain HISTORY OF PRESENT ILLNESS: Patient is s/p laparoscopic cholecystectomy. POD #1. Patient is doing well postoperatively. Pain is controlled. She is tolerating oral diet. PHYSICAL EXAM: VITAL SIGNS: Reviewed. GENERAL: Well-developed in no acute distress, although appears unwell. HEENT: No sclera icterus. Extraocular movements grossly intact. Moist buccal mucosa. Head is atraumatic, normocephalic. ABDOMEN: Soft. Nondistended. Nondistended. Surgical sites CDI. NEUROLOGIC: Alert and oriented. Cranial nerves II through XII grossly intact. ASSESSMENT: 1. Acute cholecystitis with patchy necrosis of gallbladder, status post laparoscopic cholecystectomy PLAN: Regular diet Patient is stable for discharge home today from a surgical standpoint. Follow-up in one week Nurse practitioner note has been reviewed by physician. Signing provider agrees with the documented findings, assessment, and plan of care. Objective - Vital Signs Vital signs: Vital Signs Temp 97.8 F 09/19/18 04:00 Pulse 72 09/19/18 04:00 Resp 16 09/19/18 04:00 BP 114/68 09/19/18 04:00 Pulse Ox 99 09/19/18 04:00 Intake & Output 09/18/18 09/19/18 09/19/18 18:59 06:59 18:59 Intake Total 1890 400 Output Total 5 Balance 1885 400 Weight 69.7 kg Intake: IV 1350 Oral 540 400 Output: Estimated Blood Loss 5 Other: Voiding Method Bedside Commode Bedside Commode # Voids 2 1 - Labs CBC & Chem 7: 09/19/18 06:02 09/19/18 06:02 Labs: Abnormal Lab Results - Last 24 Hours (Table) 09/19/18 09/19/18 Range/Units 06:02 06:02 RBC 3.74 L (3.80-5.40) m/uL Hgb 11.2 L (11.4-16.0) gm/dL Hct 33.9 L (34.0-46.0) % Chloride 111 H (98-107) mmol/L BUN 3 L (7-17) mg/dL Total Protein 5.9 L (6.3-8.2) g/dL Albumin 3.2 L (3.5-5.0) g/dL Microbiology - Last 24 Hours (Table) 09/16/18 13:50 Blood Culture - Preliminary Blood No Growth after 48 hours
[2018-09-19 12:52] VITALS: RESP 18; TEMP 98.1
[2018-09-19 12:56] VITALS: BP 113/65; PULSE 98
--- NOTE | 2018-09-19 18:32 | P.PN ---
Subjective Progress Note Date: 09/18/18 Patient had undergone laparoscopic cholecystectomy. Feels pain is much better. Feels the legs are getting stronger. No new neurological symptoms. Her vitamin B12 is 714 which is normal, folate is 9.7. Hemoglobin A1c 5.0 on 07/16/2018. Objective - Vital Signs Vital signs: Vital Signs Temp 98.5 F 09/18/18 12:00 Pulse 106 H 09/18/18 12:00 Resp 16 09/18/18 12:00 BP 104/59 09/18/18 12:00 Pulse Ox 96 09/18/18 12:00 Intake & Output 09/17/18 09/18/18 09/18/18 18:59 06:59 18:59 Intake Total 352 439 4908 Output Total 150 0 5 Balance 504 478 7981 Weight 69.5 kg Intake: IV 1350 Intake, IV Titration 550 950 Amount Promethazine Inj 6.25 mg 50 50 In Sodium Chloride 0.9% 50 ml @ 200 mls/hr IVPB Q6HR PRN Rx#:[id number] Sodium Chloride 0.45% 1, 500 900 000 ml @ 100 mls/hr IV . Q10H MARCO Rx#:[id number] Oral 0 Output: Urine 0 Emesis 150 Estimated Blood Loss 5 Other: Voiding Method Bedside Commode Bedside Commode # Voids 2 1 # Bowel Movements 1 - Exam Patient's mental status is normal cranial nerves are normal. Muscle strength is normal in the arms and legs. Her ankles and toes are normal. Proximal lower limbs not tested because of recent abdominal surgery. Plantars are downgoing. - Labs CBC & Chem 7: 09/19/18 06:02 09/19/18 06:02 Labs: Abnormal Lab Results - Last 24 Hours (Table) 09/18/18 Range/Units 07:04 Potassium 3.3 L (3.5-5.1) mmol/L Chloride 111 H (98-107) mmol/L Carbon Dioxide 21 L (22-30) mmol/L BUN 4 L (7-17) mg/dL Glucose 73 L (74-99) mg/dL Microbiology - Last 24 Hours (Table) 09/16/18 13:50 Blood Culture - Preliminary Blood No Growth after 48 hours Assessment and Plan Assessment: * Subjective leg weakness, numbness, unclear etiology. All workup negative. Vitamin B12 normal. * No clinical evidence of serotonin syndrome. Her temperature, blood pressure, CPK are normal. * Status post laparoscopic cholecystectomy Plan: B12 level normal 714, folate 33.7 Patient's strength appears normal in the legs. No other neurological workup indicated. May need PT OT. Neurologically patient clear for discharge/transfer to rehab. We will sign off.
== END 2018-09-19 12:45 | disposition home or self-care (01) | DRG 854 ==
LOC: EC 13:31 → 3SCARD 17:07 → OBSVTOIN 09-17 09:37
PROVIDERS: ADMIT Internal Medicine; ATTEND Internal Medicine
PROC: 0FT44ZZ Resection of Gallbladder, Percutaneous Endoscopic Approach (ICD-10-PCS; principal; 2018-09-17)
DX: A41.9 Sepsis, unspecified organism (principal); K80.00 Calculus of gallbladder with acute cholecystitis without obstruction; E87.2 Acidosis; F32.9 Major depressive disorder, single episode, unspecified; G89.29 Other chronic pain; R29.2 Abnormal reflex; G47.00 Insomnia, unspecified; F41.9 Anxiety disorder, unspecified; R53.1 Weakness; R20.0 Anesthesia of skin; K21.9 Gastro-esophageal reflux disease without esophagitis; E53.8 Deficiency of other specified B group vitamins; R26.9 Unspecified abnormalities of gait and mobility; K59.00 Constipation, unspecified; Z88.5 Allergy status to narcotic agent; Z88.2 Allergy status to sulfonamides; Z79.899 Other long term (current) drug therapy; Z98.51 Tubal ligation status
CPT/HCPCS: 36415; 70450; 71045; 74177; 76705; 80048; 80053; 80320; 80329; 81001; 81025; 82150; 82550; 82607; 82746; 83520; 83605; 83690; 83735; 84100; 84484; 85025; 85027; 85610; 85730; 86850; 86900; 86901; 87040; 88304; 93005; 96361; 96365; 96375; 96376; 99285

== ENCOUNTER 2019-01-30 09:55 | Inpatient (IN) | payer MEDICAID, OTHER ==
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
[2019-01-30] MEDS ORDERED: MAGNESIUM HYDROXIDE 2,400 MG/10 ML CUP PO PRN (14:17)
[2019-01-30] MEDS ORDERED: ACETAMINOPHEN TAB 325 MG TAB PO PRN (14:17)
[2019-01-30] MEDS ORDERED: ZIPRASIDONE 20 MG VIAL IM PRN (14:17)
[2019-01-30] MEDS ORDERED: MAG HYDROX/AL HYDROX/SIMETH 30 ML CUP PO PRN (14:17)
[2019-01-30 15:28] VITALS: BMI 26.6
[2019-01-30] MEDS: LORazepam 1 MG TAB PO PRN (16:09)
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
[2019-01-31 08:10] LABS: ALT 16 U/L (9-52); AST 21 U/L (14-36); African American GFR (CKD) >90 (>60 ml/min/1.73 sqM); Albumin 4.5 g/dL (3.5-5.0); Alkaline Phosphatase 79 U/L (38-126); Anion Gap 16 mmol/L; Basophils % (A) 0 %; Blood Urea Nitrogen 10 mg/dL (7-17); Calcium 9.9 mg/dL (8.4-10.2); Carbon Dioxide 19 mmol/L (22-30); Chloride 104 mmol/L (98-107); Cholesterol 220 mg/dL (<200); Eosinophils # (A) 0.1 k/uL (0-0.7); Eosinophils % (A) 1 %; Glucose 78 mg/dL (74-99); HCT 47.2 % (34.0-46.0); HDL Cholesterol 44 mg/dL (40-60); HGB 15.6 gm/dL (11.4-16.0); LDL Cholesterol,Calculated 156 mg/dL (0-99); Lymphocytes # (A) 2.1 k/uL (1.0-4.8); Lymphocytes % (A) 27 %; MCH 30.2 pg (25.0-35.0); MCV 91.5 fL (80.0-100.0); Mean Platelet Volume 6.1; Monocytes # (A) 0.4 k/uL (0-1.0); Monocytes % (A) 5 %; Neutrophils # (A) 5.2 k/uL (1.3-7.7); Neutrophils % (A) 65 %; Platelet Count 277 k/uL (150-450); Potassium 4.3 mmol/L (3.5-5.1); RBC 5.16 m/uL (3.80-5.40); RDW 12.9 % (11.5-15.5); Sodium 139 mmol/L (137-145); Total Bilirubin 1.4 mg/dL (0.2-1.3); Total Protein 8.2 g/dL (6.3-8.2); Triglycerides 101 mg/dL (<150)
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
[2019-01-31 14:10] LABS: Hemoglobin A1C 4.6 % (4.0-6.0)
[2019-01-31] MEDS: LORazepam 1 MG TAB PO PRN (14:16)
[2019-01-31] MEDS: VENLAFAXINE HCL ER 37.5 MG CAP PO SCH (14:16)
[2019-01-31] MEDS ORDERED: WATER FOR INJECTION, STERILE 10 ML IV ONE (20:16)
[2019-01-31] MEDS ORDERED: ZIPRASIDONE 20 MG VIAL IM ONE (20:16)
[2019-02-01] MEDS: VENLAFAXINE HCL ER 37.5 MG CAP PO SCH (09:09)
[2019-02-01 11:42] LABS: Appearance,Urine Turbid (Clear); Bacteria,Urine Occasional /hpf; Bilirubin,Urine Negative (Negative); Blood,Urine Small (Negative); Color,Urine Yellow; Glucose,Urine (UA) Negative (Negative); Ketones,Urine 1+ (Negative); Leukocyte Esterase,Urine Large (Negative); Mucus,Urine Many /hpf; Nitrite,Urine Negative (Negative); PH, Urine 5.5 (5.0-8.0); Protein,Urine 1+ (Negative); RBC,Urine 16 /hpf (0-5); Specific Gravity,Urine 1.026 (1.001-1.035); Squamous Epithelial Cell,Urine 32 /hpf (0-4); Urobilinogen,Urine <2.0 mg/dL (<2.0); WBC,Urine 51 /hpf (0-5)
[2019-02-01 11:52] LABS: Amphetamine Screen,Urine Detected (NotDetected); Barbiturate Screen,Urine Not Detected (NotDetected); Benzodiazepines Screen,Urine Detected (NotDetected); Cocaine Screen,Urine Not Detected (NotDetected); Methadone Screen, Urine Not Detected (NotDetected); Opiate Screen,Urine Not Detected (NotDetected); Oxycodone Screen, Urine Not Detected (NotDetected); Phencyclidine Screen,Urine Not Detected (NotDetected); Tricyclic Antidepressant,Urine Not Detected (NotDetected); Urn Cannabinoid Scrn Detected (NotDetected)
--- NOTE | 2019-02-01 13:52 | P.PN ---
Progress Note - Text Progress Note Date: 02/01/19 IDENTIFICATION DATA: 33-year-old female admitted emergency department with suicidal ideations and symptoms of deression INTERVAL HISTORY: Patient was seen today. She says after talking to her boyfriend yesterday evening she had thoughts of wanting hurt self and received and received geodon prn injection. She claims to have slept well after receiving geodon injection and reports feeling happy today. She says will always have thoughts of wanting to hurt self due to her traumatic experiences and her inability to suppress those memories. She says she has to learn to seek help and not to act on those thoughts. She denies current active suicidal plans. She reports poor appetite and says she is very picky on what she eats. Is compliant with medications but does not want the dose of her medications to be increased as she is afraid that higher doses will give her paralysis. MENTAL STATUS EXAMINATION: 33 year old woman. Appears older than her stated age. Casually dressed. Speech and thought process are goal directed. Mood is reported as happy and affect constricted. Has Paranoid ideations especially when around lot of men. Denies auditory and visual hallucinations. Reports passive suicidal ideations with no active plan. Denies homicidal ideations. Alert and oriented x 4. Insight and judgement improving Assessment Major depression sever with psychotic features PTSD Marijuana abuse, marijuana induced psychosis Eating disorder, rule out Bulimia nervosa Plan Continue effexor 37.5mg po qday and dose to be titrated as tolerated Patient continues to meet criteria for inpatient treatment of depression
[2019-02-01] MEDS: LORazepam 1 MG TAB PO PRN ×2 (15:41→22:52)
[2019-02-02] MEDS: VENLAFAXINE HCL ER 37.5 MG CAP PO SCH (08:53)
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
[2019-02-02] MEDS: SERTRALINE 50 MG TAB PO SCH (12:30)
[2019-02-02] MEDS: traZODone HCL 50 MG TAB PO SCH (21:02)
[2019-02-03] MEDS: SERTRALINE 50 MG TAB PO SCH (08:33)
[2019-02-03] MEDS: SERTRALINE 100 MG TAB PO SCH (08:45)
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
[2019-02-03] MEDS: traZODone HCL 50 MG TAB PO SCH (20:17)
[2019-02-04] MEDS: SERTRALINE 100 MG TAB PO SCH (08:48)
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
[2019-02-04] MEDS: traZODone HCL 50 MG TAB PO SCH (21:22)
[2019-02-05 07:11] VITALS: BP 98/53
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
[2019-02-05] MEDS: SERTRALINE 100 MG TAB PO SCH (08:50)
[2019-02-05] MEDS: traZODone HCL 50 MG TAB PO SCH (21:45)
[2019-02-06 06:44] VITALS: PULSE 94; RESP 14; TEMP 98.5
[2019-02-06] MEDS: SERTRALINE 100 MG TAB PO SCH (09:20)
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
== END 2019-02-06 14:15 | disposition home or self-care (01) | DRG 885 ==
LOC: EC 09:55 → 3MHU 14:15
PROVIDERS: ADMIT Psychiatry & Neurology Psychiatry; ATTEND Psychiatry & Neurology Psychiatry
DX: F33.2 Major depressive disorder, recurrent severe without psychotic features (principal); F12.159 Cannabis abuse with psychotic disorder, unspecified; F43.10 Post-traumatic stress disorder, unspecified; F50.9 Eating disorder, unspecified; G47.00 Insomnia, unspecified; T43.96XA Underdosing of unspecified psychotropic drug, initial encounter; Z91.128 Patient's intentional underdosing of medication regimen for other reason; T14.91XA Suicide attempt, initial encounter; Z79.899 Other long term (current) drug therapy; Z62.810 Personal history of physical and sexual abuse in childhood; F41.0 Panic disorder [episodic paroxysmal anxiety]; Z71.51 Drug abuse counseling and surveillance of drug abuser; Z71.41 Alcohol abuse counseling and surveillance of alcoholic; Z83.79 Family history of other diseases of the digestive system; Z88.5 Allergy status to narcotic agent; Z88.2 Allergy status to sulfonamides
CPT/HCPCS: 80053; 80061; 80306; 81001; 81025; 82075; 83036; 84443; 85025; 99285

== ENCOUNTER 2020-01-27 03:25 | Inpatient (IN) | payer MEDICAID, OTHER ==
[2020-01-27] MEDS ORDERED: LORazepam 2 MG/ML INJ IM STA (05:20)
--- NOTE | 2020-01-27 07:03 | ED ---
Psych HPI - General Source: patient Mode of arrival: ambulatory - History of Present Illness MD Complaint: suicidal ideation, feels depressed -: week(s) Associated Psychiatric Symptoms: none Quality: getting worse Improves With: none Worsens With: none <Chip Man - Last Filed: 01/27/20 07:03> <Cem Lieberman - Last Filed: 01/27/20 13:04> - General Chief Complaint: Psychiatric Symptoms Stated Complaint: Mental Health Time Seen by Provider: 01/27/20 03:43 - Related Data Home Medications Medication Instructions Recorded Confirmed Ranitidine HCl [Zantac] 150 mg PO DAILY 09/16/18 01/27/20 Cholecalciferol [Vitamin D3 (25 5,000 unit PO DAILY 01/30/19 01/27/20 Mcg = 1000 Iu)] Previous Rx's Medication Instructions Recorded Sertraline [Zoloft] 100 mg PO DAILY 28 Days tab 02/06/19 traZODone HCL [Desyrel] 50 mg PO HS 28 Days tab 02/06/19 Allergies Allergy/AdvReac Type Severity Reaction Status Date / Time Sulfa (Sulfonamide Allergy Severe Dyspnea Verified 01/27/20 06:43 Antibiotics) codeine Allergy Itching Verified 01/27/20 06:43 Review of Systems ROS Other: All systems not noted in ROS Statement are negative. Constitutional: Denies: fever, chills Respiratory: Denies: cough, dyspnea Cardiovascular: Denies: chest pain, palpitations, edema Gastrointestinal: Denies: abdominal pain, nausea, vomiting, diarrhea Genitourinary: Denies: dysuria, hematuria Musculoskeletal: Denies: back pain Skin: Denies: rash Neurological: Denies: headache, weakness, numbness Psychiatric: Reports: depression, suicidal thoughts. Denies: auditory hallucinations, visual hallucinations, homicidal thoughts <Chip Man - Last Filed: 01/27/20 07:03> ROS Other: All systems not noted in ROS Statement are negative. <Cem Lieberman - Last Filed: 01/27/20 13:04> ROS Statement: Those systems with pertinent positive or pertinent negative responses have been documented in the HPI. Past Medical History Past Medical History: No Reported History Additional Past Medical History / Comment(s): RUQ abdmonial pain several times, no diagnoses, depression, insomnia History of Any Multi-Drug Resistant Organisms: None Reported Past Surgical History: Cholecystectomy, Orthopedic Surgery, Tubal Ligation Additional Past Surgical History / Comment(s): Right knee scope secondary to meniscal repair, tubal ligation, IUD removed Past Anesthesia/Blood Transfusion Reactions: No Reported Reaction Past Psychological History: Anxiety, Depression Smoking Status: Never smoker Past Alcohol Use History: None Reported Past Drug Use History: Marijuana - Past Family History Mother Additional Family Medical History / Comment(s): Gallbladder disease <SimonChip felton - Last Filed: 01/27/20 07:03> General Exam Limitations: no limitations General appearance: alert, in no apparent distress Head exam: Present: atraumatic, normocephalic Eye exam: Present: normal appearance. Absent: scleral icterus, conjunctival injection ENT exam: Present: normal oropharynx Neck exam: Present: normal inspection Respiratory exam: Present: normal lung sounds bilaterally. Absent: respiratory distress, wheezes, rales, rhonchi, stridor Cardiovascular Exam: Present: regular rate, normal rhythm, normal heart sounds. Absent: systolic murmur, diastolic murmur, rubs, gallop GI/Abdominal exam: Present: soft. Absent: distended, tenderness, guarding, rebound, rigid, mass Extremities exam: Present: normal inspection, normal capillary refill. Absent: pedal edema, calf tenderness Back exam: Present: normal inspection. Absent: CVA tenderness (R), CVA tenderness (L) Neurological exam: Present: alert Psychiatric exam: Present: depressed, suicidal ideation. Absent: agitated, anxious, flat affect, manic, homicidal ideation Skin exam: Present: warm, dry, intact, normal color. Absent: rash <MagdaChip - Last Filed: 01/27/20 07:03> Course Vital Signs 01/27/20 01/27/20 03:31 10:22 Temperature 98 F 98.1 F Pulse Rate 59 L 90 Respiratory 18 16 Rate Blood Pressure 113/74 90/60 O2 Sat by Pulse 98 98 Oximetry Medical Decision Making <Cem Lieberman - Last Filed: 01/27/20 13:04> - Medical Decision Making The patient was evaluated by the EPS service and will be admitted for inpatient treatment and care (Cem Lieberman) - Lab Data Lab Results 01/27/20 Range/Units 10:34 Urine Opiates Screen Not Detected (NotDetected) Ur Oxycodone Screen Not Detected (NotDetected) Urine Methadone Screen Not Detected (NotDetected) Ur Propoxyphene Screen Not Detected (NotDetected) Ur Barbiturates Screen Not Detected (NotDetected) U Tricyclic Antidepress Not Detected (NotDetected) Ur Phencyclidine Scrn Not Detected (NotDetected) Ur Amphetamines Screen Not Detected (NotDetected) U Methamphetamines Scrn Not Detected (NotDetected) U Benzodiazepines Scrn Detected H (NotDetected) Urine Cocaine Screen Not Detected (NotDetected) U Marijuana (THC) Screen Detected H (NotDetected) Disposition <Chip Man - Last Filed: 01/27/20 07:03> <Cem Lieberman - Last Filed: 01/27/20 13:04> Clinical Impression: Depression, Suicidal ideation Disposition: TRANSFER TO PSYCH HOSP/UNIT Condition: Fair Referrals: None,Stated [Primary Care Provider] - 1-2 days
[2020-01-27 11:06] LABS: Amphetamine Screen,Urine Not Detected (NotDetected); Barbiturate Screen,Urine Not Detected (NotDetected); Benzodiazepines Screen,Urine Detected (NotDetected); Cocaine Screen,Urine Not Detected (NotDetected); Methadone Screen, Urine Not Detected (NotDetected); Opiate Screen,Urine Not Detected (NotDetected); Oxycodone Screen, Urine Not Detected (NotDetected); Phencyclidine Screen,Urine Not Detected (NotDetected); Tricyclic Antidepressant,Urine Not Detected (NotDetected); Urn Cannabinoid Scrn Detected (NotDetected)
[2020-01-27] MEDS ORDERED: LORazepam 1 MG TAB PO STA (13:38)
[2020-01-27] MEDS ORDERED: ACETAMINOPHEN TAB 325 MG TAB PO PRN (14:28)
[2020-01-27] MEDS ORDERED: ZIPRASIDONE 20 MG VIAL IM PRN (14:28)
[2020-01-27] MEDS ORDERED: MAGNESIUM HYDROXIDE 2,400 MG/10 ML CUP PO PRN (14:28)
[2020-01-27] MEDS ORDERED: MAG HYDROX/AL HYDROX/SIMETH 30 ML CUP PO PRN (14:28)
--- NOTE | 2020-01-27 21:05 | P.EN ---
patient refused evaluation at this time please notify [facility] when patient is more appropriate and ready
[2020-01-28] MEDS: LORazepam 1 MG TAB PO PRN (06:51)
[2020-01-28 07:39] LABS: Basophils % (A) 0 %; Eosinophils # (A) 0.1 k/uL (0-0.7); Eosinophils % (A) 1 %; HGB 15.3 gm/dL (11.4-16.0); Lymphocytes # (A) 2.5 k/uL (1.0-4.8); Lymphocytes % (A) 24 %; MCH 30.8 pg (25.0-35.0); MCHC 33.2 g/dL (31.0-37.0); MCV 92.8 fL (80.0-100.0); Mean Platelet Volume 7.9; Monocytes # (A) 0.5 k/uL (0-1.0); Monocytes % (A) 5 %; Neutrophils # (A) 6.8 k/uL (1.3-7.7); Neutrophils % (A) 68 %; Platelet Count 247 k/uL (150-450); RBC 4.96 m/uL (3.80-5.40); RDW 13.2 % (11.5-15.5)
[2020-01-28 08:11] LABS: ALT 15 U/L (4-34); AST 35 U/L (14-36); African American GFR (CKD) >90 (>60 ml/min/1.73 sqM); Albumin 4.5 g/dL (3.5-5.0); Alkaline Phosphatase 75 U/L (38-126); Anion Gap 12 mmol/L; Blood Urea Nitrogen 9 mg/dL (7-17); Calcium 9.8 mg/dL (8.4-10.2); Carbon Dioxide 18 mmol/L (22-30); Chloride 109 mmol/L (98-107); Glucose 79 mg/dL (74-99); Non-African American GFR(CKD) >90 (>60 ml/min/1.73 sqM); Potassium 4.3 mmol/L (3.5-5.1); Sodium 139 mmol/L (137-145); Total Bilirubin 1.1 mg/dL (0.2-1.3)
[2020-01-28] MEDS: SERTRALINE 100 MG TAB PO SCH (09:22)
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
[2020-01-28] MEDS: ONDANSETRON 4 MG TAB PO PRN (11:45)
[2020-01-28] MEDS: traZODone HCL 50 MG TAB PO SCH (21:19)
[2020-01-29] MEDS: SERTRALINE 100 MG TAB PO SCH (09:02)
[2020-01-29] MEDS: LORazepam 1 MG TAB PO PRN ×2 (09:02→16:01)
--- NOTE | 2020-01-29 10:28 | P.PN ---
Progress Note - Text Progress Note Date: 01/29/20 I reviewed medical records ,did interview patient and case was discussed in treatment team Slept 7 hours ,did not require PRN Ativan at 9 AM today Physical :still c/o of nausea ,had PRN Zofran TODAY VITALS: Pulse:140,R:0,BP:128/71 Did review medical consult PER NOTES:(ROSALIE signed for pt's jesus to obtain collateral information. Per Ltuher lee, pt is very delusional and thinks people are in the house and that he is leaving her. He states he is not leaving her but her untreated mental illness is straining the relationship. He confirmed she can return home upon dc and there are no guns in the home they are staying at with her mom and their children. Per jesus this is the 3rd yr in a row she has been admitted and he believes her birthday is the trigger. He also adds that upon dc last time she was over prescribed and ended up with "seratonin syndrome" and it took 2 weeks for her to walk again per his report. He states after that she was afraid to take any rx and he believes that has contributed to her "paranoid thinking and delusional thoughts". INTERVAL : patient was walking in [place] and agreed to follow me to office ,stated that she did not eat any meal yesterday "I do not want to gain weight",stated that she is very anxious and feeling worse as couple of patients were agitated and she asked for PRN ativan ,patient rates her depression and anxiety ,both 10/10 ,10 being the worst ,she denies any current delusional thinkings ,talked in detail about "LUTHER:"who has been very controlling over last 2 years and does not communicate with her "Just critical for everything I do" Mental status exam: Patient was wearing his own cloth ,hygiene and grooming are fair,denies any hallucination,no delusional thinking , ,endorsing suicidal ideation but able to contract for safety,speech is spontaneous ,coherent ,, alert to person and place ,denies homicidal ideation ,very concrete in his thinking insight and judgment are fair ASSESSMENT :Major depression ,recurrent rule out with psychosis,eating disorder ,unspecified PLAN: Patient continues to meet criteria for inpatient psychiatric admission for symptom stabilization and safety ,d/c Zoloft ,start Lexapro less GI side effect ,continue Trazodone ,PRN Ativan ,add low dose of Inderal ,SW on board for d/c plan
[2020-01-29] MEDS ORDERED: ONDANSETRON 4 MG/2 ML VIAL IM STA (10:46)
[2020-01-29 14:58] VITALS: BMI 28.0
[2020-01-29] MEDS: traZODone HCL 50 MG TAB PO SCH (20:49)
[2020-01-29] MEDS: PROPRANOLOL 10 MG TAB PO SCH (20:49)
[2020-01-29] MEDS: hydrOXYzine pamoate 25 MG CAP PO PRN (20:51)
[2020-01-29] MEDS: PANTOPRAZOLE 40 MG TABLET PO SCH (21:50)
--- NOTE | 2020-01-29 23:29 | P.CONS ---
History of Present Illness - Reason for Consult Consult date: 01/29/20 - History of Present Illness Patient is a 34-year-old female with a PMH of bulimia nervosa, anorexia, and depression who presented to the ED with depression and suicidal ideation. The patient was admitted to the mental health unit where she was seen and evaluated. She reported decreased excess tolerance over the past few months, though notes that she has struggled with her eating disorders for most of her life and the reby has been eating very little. She reports drinking minimal amounts of water and eating at most one small meal per day. She also reports an intermittent burning-like epigastric discomfort which she has been suffering with for many years as well. Denied any additional complaints. Denied chest pain, nausea, vomiting, palpitations, dizziness, headaches, or diarrhea. Laboratory evaluation was reviewed. Review of Systems Pertinent positives and negatives as discussed in HPI, a complete review of systems was performed and all other systems are negative. Past Medical History Past Medical History: No Reported History Additional Past Medical History / Comment(s): RUQ abdmonial pain several times, no diagnoses, depression, insomnia History of Any Multi-Drug Resistant Organisms: None Reported Past Surgical History: Cholecystectomy, Orthopedic Surgery, Tubal Ligation Additional Past Surgical History / Comment(s): Right knee scope secondary to meniscal repair, tubal ligation, IUD removed Past Anesthesia/Blood Transfusion Reactions: No Reported Reaction Past Psychological History: Anxiety, Depression Smoking Status: Never smoker Past Alcohol Use History: None Reported Past Drug Use History: Marijuana - Past Family History Mother Additional Family Medical History / Comment(s): Gallbladder disease Medications and Allergies Home Medications Medication Instructions Recorded Confirmed Type Ranitidine HCl [Zantac] 150 mg PO DAILY 09/16/18 01/27/20 History Cholecalciferol [Vitamin D3 (25 5,000 unit PO DAILY 01/30/19 01/27/20 History Mcg = 1000 Iu)] Sertraline [Zoloft] 100 mg PO DAILY 28 Days tab 02/06/19 01/27/20 Rx traZODone HCL [Desyrel] 50 mg PO HS 28 Days tab 02/06/19 01/27/20 Rx Allergies Allergy/AdvReac Type Severity Reaction Status Date / Time Sulfa (Sulfonamide Allergy Severe Dyspnea Verified 01/27/20 06:43 Antibiotics) codeine Allergy Itching Verified 01/27/20 06:43 Physical Exam Vitals: Vital Signs Temp Pulse Resp BP Pulse Ox 01/29/20 18:31 131 H 16 113/68 95 01/29/20 10:52 98.2 F 01/29/20 09:03 140 H 20 128/71 Intake and Output 01/29/20 01/29/20 01/29/20 06:59 14:59 22:59 Other: Weight 67.3 kg General: non toxic, no distress, appears at stated age, overweight Derm: no unusual rashes/lesions no unusual ecchymoses, warm, dry Head: atraumatic, normocephalic, symmetric Eyes: EOMI, no lid lag, anicteric sclera, pupils equal round reactive to light ENT: Nose and ears atraumatic, no thrush, no pharyngeal erythema Neck: No thyromegaly, no cervical lymphadenopathy, trachea midline, supple Mouth: no lip lesion, mucus membranes moist Cardiovascular: S1S2 reg, no murmur, positive posterior tibial pulse bilateral, no edema, capillary refill less than 2 seconds Lungs: CTA bilateral, no rhonchi, no rales , no accessory muscle use Abdominal: soft, minimal epigastric tenderness, no guarding, no appreciable organomegaly, normal bowel sounds Ext: no gross muscle atrophy, muscle strength 5 out of 5 in all 4 extremities grossly, no contractures, Neuro: CN II-XI grossly intact, light touch intact all 4 extremities, finger to nose within normal limits, Psych: Alert, oriented, appropriate affect Results CBC & Chem 7: 01/28/20 06:57 01/28/20 06:57 Assessment and Plan Plan: Decreased exercise tolerance, likely due to deconditioning from poor diet and caloric intake -Advised the patient on the importance of cessation caloric intake and regular meals -Will defer the management of anorexia nervosa to psychiatry service Abdominal pain, chronic -Likely secondary to history of bulimia nervosa with GERD -Protonix daily for now
[2020-01-30] MEDS: PROPRANOLOL 10 MG TAB PO SCH ×2 (09:32→20:36)
[2020-01-30] MEDS: PANTOPRAZOLE 40 MG TABLET PO SCH (09:32)
[2020-01-30] MEDS: ESCITALOPRAM 10 MG TAB PO SCH (09:32)
[2020-01-30] MEDS: ONDANSETRON 4 MG TAB PO PRN (09:33)
[2020-01-30] MEDS: hydrOXYzine pamoate 25 MG CAP PO PRN (09:34)
--- NOTE | 2020-01-30 09:37 | P.PN ---
Progress Note - Text Progress Note Date: 01/30/20 Interval history: Patient was seen wandering the hallways and was directable and agreeable to speak with proposal manager writer. Patient dresses elevated anxiety at this time. She also endorses mild nausea and decreased appetite. Otherwise, patient denies any suicidal or homicidal ideations intent or plan. Denies any Auditory or visual hallucinations. She has been adherent with her medications. She is uncertain if the medications are contributing to her nausea. She does report that the medication regimen overall appears to help. She states Vistaril has been quite beneficial in controlling her anxiety. Mental status exam: General Appearance: Patient appears to be stated age is alert, directable, and cooperative. Behavior: No agitated behavior. Patient is calm and directable Speech: Patient's speech is fluent and nonpressured. Mood/Affect: Mood is improving mildly, affect is congruent and constricted. Suicidality/Homicidality: Patient denies having any suicidal or homicidal ideation intent or plan. Perceptions: Patient denies any auditory or visual hallucinations. Though content/process: There is no evidence of any delusional thought content and thought process is linear and goal-directed. Memory and concentration: AOX3, grossly intact for the purposes of this session Judgment and insight: improving mildly Assessment/Plan: Continue with current diagnosis. Patient continues to meet criteria for inpatient psychiatric admission for symptom stabilization and safety.Patient will be maintained on current psychotropic medication regimen. Patient is requesting if she can carry a blanket with her throughout the unit. I will allow this. Monitor for medication compliance and for any psychotropic medication side effects. Will continue to monitor ongoing response to treatment. Encouraged participation in milieu.
[2020-01-30] MEDS: LORazepam 1 MG TAB PO PRN (17:29)
[2020-01-30] MEDS: traZODone HCL 50 MG TAB PO SCH (20:36)
[2020-01-31] MEDS: PANTOPRAZOLE 40 MG TABLET PO SCH (09:46)
[2020-01-31] MEDS: PROPRANOLOL 10 MG TAB PO SCH ×2 (09:46→21:35)
[2020-01-31] MEDS: ESCITALOPRAM 20 MG TAB PO SCH (09:48)
[2020-01-31] MEDS: ESCITALOPRAM 10 MG TAB PO SCH (09:56)
--- NOTE | 2020-01-31 09:57 | P.PN ---
Progress Note - Text Progress Note Date: 01/31/20 Interval history: Patient was seen wandering the hallways and was directable and agreeable to speak with documentation writer. Patient continues to express elevated anxiety which she attributes to the milieu. Furthermore, patient reports mild suicidal ideation but denies any plan or intention. She denies any homicidal ideations intent or plan. Denies any Auditory or visual hallucinations. Patient denies any side effects from the medications and has been compliant with meds. She reports no issues with sleep or appetite. Mental status exam: General Appearance: Patient appears to be stated age is alert, directable, and cooperative. Behavior: No agitated behavior. Patient is calm and directable Speech: Patient's speech is fluent and nonpressured. Mood/Affect: Mood is anxious and depressed, affect is congruent and nervous. Suicidality/Homicidality: Patient denies having any suicidal or homicidal ideation intent or plan. Perceptions: Patient denies any auditory or visual hallucinations. Though content/process: There is no evidence of any delusional thought content a nd thought process is linear and goal-directed. Memory and concentration: AOX3, grossly intact for the purposes of this session Judgment and insight: improving mildly Assessment/Plan: Continue with current diagnosis. Patient continues to meet criteria for inpatient psychiatric admission for symptom stabilization and safety. We will increase her Lexapro to 20 mg by mouth daily. We will continue her other current psychotropic medications. Monitor for medication compliance and for any psychotropic medication side effects. Will continue to monitor ongoing response to treatment. Encouraged participation in milieu.
[2020-01-31] MEDS: hydrOXYzine pamoate 25 MG CAP PO PRN (11:01)
[2020-01-31] MEDS: LORazepam 1 MG TAB PO PRN (21:35)
[2020-01-31] MEDS: traZODone HCL 50 MG TAB PO SCH (21:35)
[2020-02-01] MEDS: ESCITALOPRAM 20 MG TAB PO SCH (08:31)
[2020-02-01] MEDS: PANTOPRAZOLE 40 MG TABLET PO SCH (08:31)
[2020-02-01] MEDS: PROPRANOLOL 10 MG TAB PO SCH ×2 (08:33→21:15)
--- NOTE | 2020-02-01 10:04 | P.PN ---
Progress Note - Text Progress Note Date: 02/01/20 I reviewed medical records ,did interview patient and case was discussed in treatment team Slept 6 hours ,yesterday ,had PRN VISTARIL at 11 ,PRN 1 mg Ativan at 21:00 TODAY VITALS: P:98,R:16,BP:105/57 Did participate in one group yesterday REVIEWED MEDICAL CONSULT:((Assessment and Plan Plan: Decreased exercise tolerance, likely due to deconditioning from poor diet and caloric intake -Advised the patient on the importance of cessation caloric intake and regular meals -Will defer the management of anorexia nervosa to psychiatry service Abdominal pain, chronic -Likely secondary to history of bulimia nervosa with GERD -Protonix daily for now)) INTERVAL : patient was walking in [place] and agreed to follow me to office ,stated that she has been eating chips and garden salad ,irrational fear of gaining weight as she stated "I do eat more than before",last prn Zofran was 10/, able to tolerate Lexapro without having GI side-effect,rates her anxiety / and depression / ,10 being the worst ,still feeling suicidal but able to contract for safety,stated that her fiancee came to visit last weekend ,stated that she is avoiding group because"I can not breath or handle group of peoples" Mental status exam: Patient was wearing his own cloth ,hygiene and grooming are fair,denies any hallucination,no delusional thinking , ,endorsing suicidal ideation but able to contract for safety,speech is spontaneous ,coherent ,, alert to person and place ,denies homicidal ideation ,very concrete in his thinking insight and judgment are fair ASSESSMENT :Major depression ,recurrent rule out with psychosis,eating disorder ,unspecified PLAN: Patient continues to meet criteria for inpatient psychiatric admission for symptom stabilization and safety ,continue Lexapro 20 mg and Trazodone for sleep ,continue Inderal 10 mg BID for anxiety ,Add low dose of Abilify 2mg as augmentation ,PRN Vistaril and Ativan for anxiety ,SW on board for post plan discharge
[2020-02-01] MEDS: hydrOXYzine pamoate 25 MG CAP PO PRN (10:36)
[2020-02-01] MEDS: LORazepam 1 MG TAB PO PRN (17:17)
[2020-02-01] MEDS: traZODone HCL 50 MG TAB PO SCH (21:15)
[2020-02-02] MEDS: ESCITALOPRAM 20 MG TAB PO SCH (08:39)
[2020-02-02] MEDS: PANTOPRAZOLE 40 MG TABLET PO SCH (08:39)
[2020-02-02] MEDS: PROPRANOLOL 10 MG TAB PO SCH ×2 (08:39→21:50)
[2020-02-02] MEDS: ARIPiprazole 5 MG TAB PO SCH (08:40)
[2020-02-02] MEDS: hydrOXYzine pamoate 25 MG CAP PO PRN (08:40)
--- NOTE | 2020-02-02 10:21 | P.PN ---
Progress Note - Text Progress Note Date: 02/02/20 I reviewed medical records ,did interview patient and case was discussed in treatment team Slept 6 hours ,yesterday ,had PRN VISTARIL at 11 ,PRN 1 mg Ativan at 21:00 TODAY VITALS: P:98,R:16,BP:105/57 Did participate in two groups yesterday Had PRN Ativan last evening Had PRN VISTARIL this morning INTERVAL : patient was walking in [place] and agreed to follow me to office ,stated that she has been struggling with urge of self cutting She stated that she wants to relieve the anxious feelings and her emotional pain ,still obsessing about her weight and food ,trying to limit her eating ,slept 6 hours ,talked with her fiancee and she found out that he has been in therapy and he did not tell her ,patient asked for post-discharge referral to couple therapy counselor Mental status exam: Patient was wearing his own cloth ,hygiene and grooming are fair,denies any hallucination,no delusional thinking , ,endorsing suicidal ideation but able to contract for safety,speech is spontaneous ,coherent ,, alert to person and place ,denies homicidal ideation ,very concrete in his thinking insight and judgment are fair ASSESSMENT :Major depression ,recurrent rule out with psychosis,eating disorder ,unspecified PLAN: Patient continues to meet criteria for inpatient psychiatric admission for symptom stabilization and safety Abilify 5 mg as augmentation continue Lexapro 20 mg and Trazodone for sleep ,continue Inderal 10 mg BID for anxiety ,,change Vistaril to schedule dose instead of PRN, Ativan for anxiety ,SW on board for post plan discharge
[2020-02-02] MEDS: LORazepam 1 MG TAB PO PRN (11:52)
[2020-02-02] MEDS: ONDANSETRON 4 MG TAB PO PRN (11:54)
[2020-02-02] MEDS: hydrOXYzine pamoate 25 MG CAP PO SCH ×2 (17:13→21:49)
[2020-02-02] MEDS: traZODone HCL 50 MG TAB PO SCH (21:50)
[2020-02-03] MEDS: ARIPiprazole 5 MG TAB PO SCH (09:42)
[2020-02-03] MEDS: hydrOXYzine pamoate 25 MG CAP PO SCH ×2 (09:42→16:34)
[2020-02-03] MEDS: ESCITALOPRAM 20 MG TAB PO SCH (09:42)
[2020-02-03] MEDS: PANTOPRAZOLE 40 MG TABLET PO SCH (09:43)
[2020-02-03] MEDS: PROPRANOLOL 10 MG TAB PO SCH ×2 (09:43→21:23)
[2020-02-03] MEDS ORDERED: hydrOXYzine pamoate 25 MG CAP PO PRN (11:03)
--- NOTE | 2020-02-03 13:18 | P.PN ---
Progress Note - Text Progress Note Date: 02/03/20 I reviewed medical records ,did interview patient and case was discussed in treatment team Slept 5 hours ,yesterday , yesterday she had PRN Ativan and Zofran TODAY VITALS: P:98,R:16,BP:106/61 Did participate in two groups yesterday INTERVAL : patient was laying in bed and stated that she has been tired and sleeping most of day ,stated "I prefer to be calm down ,I hate anxiety and panic attacks",her appetite is still fair,denies having any urge of cutting ,reports "I had very good night sleep ,was very deep ",I discussed with her to change Vistaril to PRN but she declined saying "i like to have it as scheduled Mental status exam: Patient was wearing his own cloth ,hygiene and grooming are fair,denies any hallucination,no delusional thinking ,denies any current suicidal ideation,speech is spontaneous ,coherent ,, alert to person and place ,denies homicidal ideation ,very concrete in his thinking insight and judgment are fair ASSESSMENT :Major depression ,recurrent rule out with psychosis,eating disorder ,unspecified PLAN: Patient continues to meet criteria for inpatient psychiatric admission for symptom stabilization and safety Abilify 5 mg as augmentation continue Lexapro 20 mg and Trazodone for sleep ,continue Inderal 10 mg BID for anxiety ,,change Vistaril to schedule dose instead of PRN, ,d/c Ativan ,SW on board for post plan discharge
[2020-02-03] MEDS: traZODone HCL 50 MG TAB PO SCH (21:24)
[2020-02-04] MEDS: hydrOXYzine pamoate 25 MG CAP PO SCH ×2 (01:10→07:56)
[2020-02-04 07:01] VITALS: BP 107/61; PULSE 101; RESP 14; TEMP 98.4
[2020-02-04] MEDS: ARIPiprazole 5 MG TAB PO SCH (07:56)
[2020-02-04] MEDS: ESCITALOPRAM 20 MG TAB PO SCH (07:56)
[2020-02-04] MEDS: PANTOPRAZOLE 40 MG TABLET PO SCH (07:56)
[2020-02-04] MEDS: PROPRANOLOL 10 MG TAB PO SCH (07:57)
[2020-02-04] MEDS ORDERED: traZODone HCL 50 MG TAB PO PRN (08:52)
--- NOTE | 2020-02-04 21:01 | DS ---
DISCHARGE SUMMARY DATE OF ADMISSION: 01/27/2020 DATE OF DISCHARGE: 02/04/2020 CONSULTATION: Dr. Piper Pittman for history and physical and medical management. DISCHARGE DIAGNOSES: 1. Major depression, recurrent, without psychotic features, in remission. 2. Eating disorder, not otherwise specified, versus bulimia. 3. Anxiety, unspecified. 4. Cannabis use disorder. 5. Borderline personality traits. HISTORY OF PRESENT ILLNESS: The patient is a 34-year-old single female, currently unemployed. She is a mother of two children, ages 11 and 13. She has been living with her fiance for the last 14 years. She presented to the emergency room with depression and suicidal ideation. The patient stated that she has been severely depressed, hopeless, helpless, struggling with the suicidal ideation to walk into traffic for the last couple of weeks. She has been having trouble sleeping at night and the urge to scratch her arm to the point that she was scratching her arm in the ER and she did require IM Ativan. The patient stated that what triggered this was some relationship issue with her fiance of 14 years. In addition, she stated that her eating disorder had been getting worse. The patient has extensive history of eating disorder since age 13 in addition to self- mutilation behavior since age 10. The patient also described that she had been having panic attacks with agoraphobia. For complete evaluation, please refer to my dictation. HOSPITAL COURSE: Patient was admitted on a voluntary basis. She was seen by the medical doctor, as she was complaining of severe nausea. According to his assessment and plan, he stated that the patient is suffering from poor diet and calorie intake, so he did advise increasing the calorie intake and encouraged the patient to have regular meals. Regarding her chronic abdominal pain and nausea, he stated that that is likely secondary to her bulimia with gastroesophageal reflex disease, and he did start her on pantoprazole daily. When she came, she was started on Zoloft. However, as she was refusing breakfast, it did give her more nausea, so I discontinued the Zoloft and I started her on Lexapro 10 mg and gradually increased it to 20 mg. Initially the patient was struggling with the urge of self-cutting or scratching her arm. However, she was getting p.r.n. Ativan. I did discuss with her cross addiction, and she was willing to start Vistaril p.r.n. for anxiety. The patient was complaining of trouble sleeping at night, so trazodone was added for her mood and her insomnia. Our social media content specialist did contact patient's fiance to gather more information, and he told her that the patient has been more paranoid and suspicious over the last couple of years that he will leave her with the two children, and he stated that this is not true and he has been very supportive. He even started therapy on his own to know how to communicate with her. I did add a low dose of Abilify as augmentation and also to eliminate any paranoia, as she did have irrational fears that he will abandon her and leave her with the two children. The patient was able to tolerate medication without having any side effects. On the day before discharge, she was able to eat at least 75% of her dinner; initially she was not eating anything the first couple of days except chips. The patient was attending group therapy; however, she always tried to leave early and did not get socially in the group because "I have bad anxiety around crowds." The patient was interacting with some peers and she was getting along well with other patients on the unit. She was compliant with all the medication. . The patient has been improving throughout her hospitalization gradually; she stated that her anxiety is 50% less. She has been sleeping through the night. On the day of discharge, she denied any suicidal or homicidal ideation, intent or plan. She denied any psychotic features. She denied any access to guns or weapons. She denied any paranoia and she stated that she has been getting along with her fiance, who did visit her on the weekend both days. The patient was counseled on the medication and the need for regular compliance, and I did encourage her to follow up with outpatient treatment for mental health and also to follow up with her primary care physician regarding her gastroesophageal reflex disease. MENTAL STATUS EXAMINATION: Patient appears her stated age. Alert, pleasant, cooperative. She is not in acute distress. Fair hygiene and grooming. She was able to sit calmly without agitation. Speech is spontaneous, coherent. As to her mood, she reported, "I am not depressed, but I am still anxious." Affect is constricted. The patient denied having any suicidal or homicidal ideation, intent or plan. She denied any auditory or visual hallucinations. There is no evidence of any delusional thinking or content. She is alert, oriented x3 and her memory is grossly intact. Her judgment and insight are improved. IMPRESSION: 1. Major depression disorder, recurrent, severe.,Eating disorder ,unspecified 2. Anxiety disorder, unspecified. 3. Cannabis use disorder. 4. Borderline personality traits. PLAN: The patient will be discharged today, as she is improved and she is not an imminent threat to herself or others. I will continue her on current medications: 1) Lexapro 20 mg. She was given a 2-week supply with one refill; 2) Trazodone 50 mg. She will take it as needed for insomnia and mood; 3) Vistaril as needed only for anxiety; 4) Abilify 5 mg in the morning as augmentation and for her paranoia. 5/ Inderal 10 mg BID for social anxiety The patient was counseled on the need for medication compliance and appropriate followup with mental health, and she did verbalize understanding and she did agree. farmworker fur to arrange for followup at psychological counseling. Patient was encouraged to abstain from marijuana and was informed about the adverse effects of the marijuana on the physical and mental health, and she did verbalize understanding. The patient was instructed to return to the hospital if any symptoms recur. MMANIYAL / SHAEN: [id number] / CHINO
== END 2020-02-04 12:45 | disposition home or self-care (01) | DRG 885 ==
LOC: EC 03:25 → 3MHU 14:17
PROVIDERS: ADMIT Psychiatry & Neurology Psychiatry; ATTEND Psychiatry & Neurology Psychiatry
DX: F33.9 Major depressive disorder, recurrent, unspecified (principal); F50.2 Bulimia nervosa; R45.851 Suicidal ideations; F12.10 Cannabis abuse, uncomplicated; F40.01 Agoraphobia with panic disorder; F22 Delusional disorders; K21.9 Gastro-esophageal reflux disease without esophagitis; G47.00 Insomnia, unspecified; G89.29 Other chronic pain; Z56.0 Unemployment, unspecified; F60.3 Borderline personality disorder; Z79.899 Other long term (current) drug therapy; Z81.8 Family history of other mental and behavioral disorders; Z91.5 Personal history of self-harm; Z88.5 Allergy status to narcotic agent; Z88.2 Allergy status to sulfonamides; F40.10 Social phobia, unspecified
CPT/HCPCS: 80053; 80306; 84443; 85025; 93005; 96374; 99285

== ENCOUNTER 2020-04-25 03:25 | Inpatient (IN) | payer MEDICAID, OTHER ==
--- NOTE | 2020-04-25 04:00 | ED ---
Psych HPI - General Chief Complaint: Psychiatric Symptoms Stated Complaint: Police petition Time Seen by Provider: 04/25/20 03:37 Source: patient, police Mode of arrival: ambulatory - History of Present Illness Initial Comments: This patient is a 35-year-old woman who presents to the hospital after reporting to a friend that she had taken an overdose of her medication. The patient tells me that she has been feeling very depressed. This letter to take a total of 3 of her trazodone tablets, 50 mg each, tonight approximately 90 minutes ago now. She reported this to her friend who called the police who went to the scene and brought her here for evaluation. The patient states that she did have some vomiting after taking the medication. She denies other symptoms currently rated she does report some pelvic pains going back approximately 2 weeks. She also has had some mild dysuria. Remainder of review of systems unremarkable. MD Complaint: suicidal ideation, feels depressed -: week(s) Associated Psychiatric Symptoms: depression, suicidal ideation History of same: Yes Quality: getting worse Improves With: none Worsens With: none - Related Data Home Medications Medication Instructions Recorded Confirmed Cholecalciferol [Vitamin D3 (25 5,000 unit PO DAILY 01/30/19 04/25/20 Mcg = 1000 Iu)] Previous Rx's Medication Instructions Recorded ARIPiprazole [Abilify] 5 mg PO DAILY 14 Days tab 02/04/20 Escitalopram [Lexapro] 20 mg PO DAILY 14 Days tab 02/04/20 Pantoprazole [Protonix] 40 mg PO AC-BRKFST 14 Days 02/04/20 tablet. Propranolol [Inderal] 10 mg PO BID 14 Days tab 02/04/20 hydrOXYzine pamoate [Vistaril] 25 mg PO Q8HR PRN 14 Days cap 02/04/20 traZODone HCL [Desyrel] 50 mg PO HS PRN 14 Days tab 02/04/20 Allergies Allergy/AdvReac Type Severity Reaction Status Date / Time Sulfa (Sulfonamide Allergy Severe Dyspnea Verified 04/25/20 11:39 Antibiotics) codeine Allergy Itching Verified 04/25/20 11:39 Review of Systems ROS Statement: Those systems with pertinent positive or pertinent negative responses have been documented in the HPI. ROS Other: All systems not noted in ROS Statement are negative. Constitutional: Denies: fever, chills Respiratory: Denies: cough, dyspnea Cardiovascular: Denies: chest pain, palpitations, edema Gastrointestinal: Reports: as per HPI, abdominal pain. Denies: nausea, vomiting, diarrhea, constipation Genitourinary: Reports: dysuria. Denies: urgency, frequency, hematuria, discharge Musculoskeletal: Denies: back pain Skin: Denies: rash Neurological: Denies: headache, weakness, numbness Psychiatric: Reports: depression, suicidal thoughts. Denies: auditory hallucinations, visual hallucinations, homicidal thoughts Past Medical History Past Medical History: No Reported History Additional Past Medical History / Comment(s): RUQ abdmonial pain several times, no diagnoses, depression, insomnia History of Any Multi-Drug Resistant Organisms: None Reported Past Surgical History: Cholecystectomy, Orthopedic Surgery, Tubal Ligation Additional Past Surgical History / Comment(s): Right knee scope secondary to meniscal repair, tubal ligation, IUD removed Past Anesthesia/Blood Transfusion Reactions: No Reported Reaction Past Psychological History: Anxiety, Depression, PTSD Smoking Status: Never smoker Past Alcohol Use History: None Reported Past Drug Use History: Marijuana - Past Family History Mother Additional Family Medical History / Comment(s): Gallbladder disease General Exam Limitations: no limitations General appearance: alert, in no apparent distress Head exam: Present: atraumatic, normocephalic Eye exam: Present: normal appearance. Absent: scleral icterus, conjunctival injection ENT exam: Present: normal oropharynx Neck exam: Present: normal inspection Respiratory exam: Present: normal lung sounds bilaterally. Absent: respiratory distress, wheezes, rales, rhonchi, stridor Cardiovascular Exam: Present: regular rate, normal rhythm, normal heart sounds. Absent: systolic murmur, diastolic murmur, rubs, gallop GI/Abdominal exam: Present: soft. Absent: distended, tenderness, guarding, rebound, rigid, mass Extremities exam: Present: normal inspection, normal capillary refill. Absent: pedal edema, calf tenderness Neurological exam: Present: alert, normal gait Psychiatric exam: Present: depressed (With tearful affect), suicidal ideation. Absent: normal affect, normal mood, agitated, anxious, flat affect, manic, homicidal ideation Skin exam: Present: warm, dry, intact, normal color. Absent: rash Course Vital Signs 04/25/20 04/25/20 04/25/20 03:31 06:22 09:53 Temperature 98.3 F 97.8 F 97.9 F Pulse Rate 95 73 87 Respiratory 16 16 16 Rate Blood Pressure 94/63 84/48 107/61 O2 Sat by Pulse 100 97 98 Oximetry Medical Decision Making - Lab Data Result diagrams: 04/25/20 17:27 04/25/20 17:27 Lab Results 04/25/20 04/25/20 04/25/20 Range/Units 04:47 04:47 08:52 Urine Color Yellow Urine Appearance Cloudy H (Clear) Urine pH 5.5 (5.0-8.0) Ur Specific [place] 1.017 (1.001-1.035) Urine Protein Negative (Negative) Urine Glucose (UA) Negative (Negative) Urine Ketones Negative (Negative) Urine Blood Small H (Negative) Urine Nitrite Negative (Negative) Urine Bilirubin Negative (Negative) Urine Urobilinogen <2.0 (<2.0) mg/dL Ur Leukocyte Esterase Large H (Negative) Urine RBC 7 H (0-5) /hpf Urine WBC 6 H (0-5) /hpf Ur Squamous Epith Cells 15 H (0-4) /hpf Urine Bacteria Occasional H (None) /hpf Hyaline Casts 1 (0-2) /lpf Urine Mucus Many H (None) /hpf Urine HCG, Qual Not Detected (Not Detectd) Urine Opiates Screen Not Detected (NotDetected) Ur Oxycodone Screen Not Detected (NotDetected) Urine Methadone Screen Not Detected (NotDetected) Ur Propoxyphene Screen Not Detected (NotDetected) Ur Barbiturates Screen Not Detected (NotDetected) U Tricyclic Antidepress Not Detected (NotDetected) Ur Phencyclidine Scrn Not Detected (NotDetected) Ur Amphetamines Screen Detected H (NotDetected) U Methamphetamines Scrn Not Detected (NotDetected) U Benzodiazepines Scrn Not Detected (NotDetected) Urine Cocaine Screen Not Detected (NotDetected) U Marijuana (THC) Screen Detected H (NotDetected) Coronavirus (PCR) Not Detected (Not Detectd) - EKG Data EKG shows normal: sinus rhythm, axis (Normal), intervals (Normal), QRS complexes (Normal) Rate: normal (Rate 79 bpm) Interpretation: nonspecific ST-T wave changes Disposition Clinical Impression: Mood disorder, Urinary tract infection Disposition: ADMITTED IP TO THIS HOSP Condition: Fair Is patient prescribed a controlled substance at d/c from ED?: No
[2020-04-25 05:00] LABS: Appearance,Urine Cloudy (Clear); Bacteria,Urine Occasional /hpf; Bilirubin,Urine Negative (Negative); Blood,Urine Small (Negative); Color,Urine Yellow; Glucose,Urine (UA) Negative (Negative); Hyaline Casts,Urine 1 /lpf (0-2); Ketones,Urine Negative (Negative); Leukocyte Esterase,Urine Large (Negative); Mucus,Urine Many /hpf; Nitrite,Urine Negative (Negative); PH, Urine 5.5 (5.0-8.0); Protein,Urine Negative (Negative); RBC,Urine 7 /hpf (0-5); Specific Gravity,Urine 1.017 (1.001-1.035); Squamous Epithelial Cell,Urine 15 /hpf (0-4); Urobilinogen,Urine <2.0 mg/dL (<2.0); WBC,Urine 6 /hpf (0-5)
[2020-04-25 05:05] LABS: Cocaine Screen,Urine Not Detected (NotDetected); Phencyclidine Screen,Urine Not Detected (NotDetected); Urn Cannabinoid Scrn Detected (NotDetected)
[2020-04-25 05:06] LABS: Amphetamine Screen,Urine Detected (NotDetected); Barbiturate Screen,Urine Not Detected (NotDetected); Benzodiazepines Screen,Urine Not Detected (NotDetected); Methadone Screen, Urine Not Detected (NotDetected); Opiate Screen,Urine Not Detected (NotDetected); Oxycodone Screen, Urine Not Detected (NotDetected); Tricyclic Antidepressant,Urine Not Detected (NotDetected)
[2020-04-25] MEDS ORDERED: NITROFURANTOIN MONOHYD/M-CRYST 100 MG CAP PO STA (06:12)
[2020-04-25] MEDS ORDERED: PHENAZOPYRIDINE 100 MG TAB PO STA (06:12)
[2020-04-25] MEDS ORDERED: MAGNESIUM HYDROXIDE 2,400 MG/10 ML CUP PO PRN (09:52)
[2020-04-25] MEDS ORDERED: ACETAMINOPHEN TAB 325 MG TAB PO PRN (09:52)
[2020-04-25] MEDS ORDERED: MAG HYDROX/AL HYDROX/SIMETH 30 ML CUP PO PRN (09:52)
[2020-04-25] MEDS ORDERED: LORazepam 1 MG TAB PO PRN (09:52)
[2020-04-25] MEDS ORDERED: LORazepam 2 MG/ML INJ IM PRN (09:54)
[2020-04-25] MEDS ORDERED: HALOPERIDOL LACTATE 5 MG/ML 1 ML VIAL IM PRN ×2 (09:55→10:07)
[2020-04-25] MEDS ORDERED: hydrOXYzine pamoate 25 MG CAP PO PRN (09:58)
[2020-04-25] MEDS ORDERED: traZODone HCL 50 MG TAB PO PRN (09:58)
[2020-04-25] MEDS ORDERED: ARIPiprazole 5 MG TAB PO SCH (10:00)
[2020-04-25] MEDS ORDERED: ESCITALOPRAM 20 MG TAB PO SCH (10:00)
[2020-04-25] MEDS ORDERED: haloperidoL 5 MG TAB PO PRN (10:07)
[2020-04-25] MEDS: PROPRANOLOL 10 MG TAB PO SCH ×3 (12:15→22:30)
[2020-04-25] MEDS ORDERED: ONDANSETRON ODT 4 MG TAB PO PRN (14:31)
[2020-04-25] MEDS ORDERED: SODIUM CHLORIDE 0.9% 1,000 ML IV STA (17:09)
--- NOTE | 2020-04-25 17:21 | P.HPMEDMHU ---
History of Present Illness H&P Date: 04/25/20 Chief Complaint: Suicide attempt 35-year-old woman who presents to the hospital after reporting to a friend that she had taken an overdose of her medication. She has been feeling very depressed lately. She took a total of 3 of her trazodone tablets, 50 mg each. She reporte d this to her friend who called the police who went to the scene and brought her here for evaluation. The patient states that she did have some vomiting after taking the medication. In the ER patient reported some pelvic pains for the last 2 weeks. She also has had some mild dysuria. When patient came up to the mental health unit she started having severe vomiting, putting out bilious liquid. She was also having lower abdominal pain as well as diarrhea. She was very fidgety and uncomfortable. Was asking for a shower so that she can ''relax''. In addition she has been feeling dizzy and weak. She was laying on the floor in the bathroom when I came into her home. No fevers reported. Patient smokes marijuana daily and the last time she smoked was 2 days ago. Review of Systems Complete review of system performed, pertinent positives per HPI, otherwise negative Past Medical History Past Medical History: No Reported History Additional Past Medical History / Comment(s): RUQ abdmonial pain several times, no diagnoses, depression, insomnia History of Any Multi-Drug Resistant Organisms: None Reported Past Surgical History: Cholecystectomy, Orthopedic Surgery, Tubal Ligation Additional Past Surgical History / Comment(s): Right knee scope secondary to meniscal repair, tubal ligation, IUD removed Past Anesthesia/Blood Transfusion Reactions: No Reported Reaction Smoking Status: Current every day smoker, Never smoker - Past Family History Mother Additional Family Medical History / Comment(s): Gallbladder disease Medications and Allergies Home Medications Medication Instructions Recorded Confirmed Type Cholecalciferol [Vitamin D3 (25 5,000 unit PO DAILY 01/30/19 04/25/20 History Mcg = 1000 Iu)] ARIPiprazole [Abilify] 5 mg PO DAILY 14 Days tab 02/04/20 04/25/20 Rx Escitalopram [Lexapro] 20 mg PO DAILY 14 Days tab 02/04/20 04/25/20 Rx Pantoprazole [Protonix] 40 mg PO AC-BRKFST 14 Days 02/04/20 04/25/20 Rx tablet. Propranolol [Inderal] 10 mg PO BID 14 Days tab 02/04/20 04/25/20 Rx hydrOXYzine pamoate [Vistaril] 25 mg PO Q8HR PRN 14 Days cap 02/04/20 04/25/20 Rx traZODone HCL [Desyrel] 50 mg PO HS PRN 14 Days tab 02/04/20 04/25/20 Rx Allergies Allergy/AdvReac Type Severity Reaction Status Date / Time Sulfa (Sulfonamide Allergy Severe Dyspnea Verified 04/25/20 11:39 Antibiotics) codeine Allergy Itching Verified 04/25/20 11:39 Physical Exam Vitals: Vital Signs Temp Pulse Pulse Resp BP BP BP 04/25/20 16:20 116/68 04/25/20 11:42 81 18 96/66 04/25/20 09:53 97.9 F 87 16 107/61 04/25/20 06:22 97.8 F 73 16 84/48 04/25/20 03:31 98.3 F 95 16 94/63 Pulse Ox 04/25/20 16:20 04/25/20 11:42 98 04/25/20 09:53 98 04/25/20 06:22 97 04/25/20 03:31 100 Intake and Output 04/25/20 04/25/20 04/25/20 06:59 14:59 22:59 Other: Weight 72.575 kg 68.8 kg Constitutional: Seems anxious and in mild distress, able to participate and history taking. Diaphoretic. Eyes:Anicteric sclerae, moist conjunctiva, no lid-lag, PERRLA, ENMT: Oropharynx clear, no erythema, exudates. Dry mucous membranes. Neck: Supple, FROM, no masses, or JVD, No carotid bruits, No thyromegaly Lungs: Clear to auscultation, Clear to percussion, Normal respiratory effort, no accessory muscle use Cardiovascular: Tachycardic, regular, S1 and S2 normal. No murmurs, gallops, or rubs, No peripheral edema Abdominal: Soft, Nontender, no guarding, rebound or rigidity, Normoactive bowel sounds, No hepatomegaly, No splenomegaly, No palpable mass Skin: Normal temperature, tone, texture, turgor, no induration, No subcutaneous nodules, No rash, lesions, No ulcers Extremities: No digital cyanosis, No clubbing, Pedal pulses intact and symmetrical, Radial pulses intact and symmetrical, No calf tenderness Psychiatric: Alert and oriented to person, place and time, appropriate affect, intact judgement Neuro: Muscles Strength 5/5 in all 4 extremities, Sensation to light touch grossly present throughout, Cranial nerves II-XII grossly intact, no focal sensory deficits Cranial Nerve Examination - Cranial Nerves Cranial Nerve II- Optic: Intact Cranial Nerve III- Oculomotor: Intact Cranial Nerve IV- Trochlear: Intact Cranial Nerve V- Trigeminal: Intact Cranial Nerve - Abducens: Intact Cranial Nerve VII- Facial: Intact Cranial Nerve VIII- Auditory: Intact Cranial Nerve IX- Glossopharyngeal: Intact Cranial Nerve X- Vagus: Intact Cranial Nerve XI- Accessory: Intact Cranial Nerve XII- Hypoglossal: Intact Results Labs: Abnormal Lab Results - Last 24 Hours (Table) 04/25/20 Range/Units 04:47 Urine Appearance Cloudy H (Clear) Urine Blood Small H (Negative) Ur Leukocyte Esterase Large H (Negative) Urine RBC 7 H (0-5) /hpf Urine WBC 6 H (0-5) /hpf Ur Squamous Epith Cells 15 H (0-4) /hpf Urine Bacteria Occasional H (None) /hpf Urine Mucus Many H (None) /hpf Ur Amphetamines Screen Detected H (NotDetected) U Marijuana (THC) Screen Detected H (NotDetected) Assessment and Plan Plan: Acute cystitis Patient received Macrobid in the emergency department, unclear if her symptoms are signs of intolerance to it, we'll discontinue. Start IV fluids Send urine cultures Check CBC and CMP Start ceftriaxone 1 g IV daily Nausea and vomiting Could be secondary to above versus marijuana use versus Macrobid side effect. Zofran when necessary Abdominal x-ray routine health screening Check lipid profile Suicide attempt Per your psychiatry management.
--- NOTE | 2020-04-25 17:58 | XR ---
EXAMINATION TYPE: XR abdomen 1V DATE OF EXAM: 04/25/2020 COMPARISON: NONE HISTORY: Vomiting TECHNIQUE: 2 views supine FINDINGS: Bowel gas pattern is normal. There is no sign of intestinal obstruction or pneumoperitoneum . Fecal pattern is normal. There is no evidence of a mass. There are phleboliths in the pelvis. Lung bases appear clear. IMPRESSION: Nonacute abdomen.
[2020-04-25 18:12] LABS: ALT 16 U/L (4-34); AST 21 U/L (14-36); African American GFR (CKD) >90 (>60 ml/min/1.73 sqM); Albumin 4.4 g/dL (3.5-5.0); Alkaline Phosphatase 84 U/L (38-126); Anion Gap 11 mmol/L; Basophils # (A) 0.1 k/uL (0-0.2); Basophils % (A) 1 %; Blood Urea Nitrogen 9 mg/dL (7-17); Calcium 9.7 mg/dL (8.4-10.2); Carbon Dioxide 24 mmol/L (22-30); Chloride 105 mmol/L (98-107); Eosinophils # (A) 0.1 k/uL (0-0.7); Eosinophils % (A) 0 %; Glucose 168 mg/dL (74-99); HCT 43.1 % (34.0-46.0); HGB 14.5 gm/dL (11.4-16.0); Lymphocytes # (A) 2.3 k/uL (1.0-4.8); Lymphocytes % (A) 13 %; MCH 30.9 pg (25.0-35.0); MCHC 33.7 g/dL (31.0-37.0); MCV 91.7 fL (80.0-100.0); Magnesium 2.1 mg/dL (1.6-2.3); Monocytes # (A) 0.6 k/uL (0-1.0); Monocytes % (A) 4 %; Neutrophils # (A) 14.4 k/uL (1.3-7.7); Neutrophils % (A) 82 %; Non-African American GFR(CKD) 81 (>60 ml/min/1.73 sqM); Platelet Count 346 k/uL (150-450); Potassium 3.8 mmol/L (3.5-5.1); RDW 12.9 % (11.5-15.5); Sodium 140 mmol/L (137-145); Total Bilirubin 0.6 mg/dL (0.2-1.3); WBC 17.6 k/uL (3.8-10.6)
[2020-04-25] MEDS ORDERED: NITROFURANTOIN MONOHYD/M-CRYST 100 MG CAP PO SCH (21:00)
[2020-04-25 21:19] VITALS: BP 108/61; PULSE 71; TEMP 95.5
[2020-04-25 21:21] VITALS: RESP 18
[2020-04-25] MEDS ORDERED: MORPHINE SULFATE 2 MG/ML SYRINGE IM ONE (21:40)
[2020-04-25] MEDS ORDERED: SODIUM CHLORIDE 0.9% 500 ML 500 ML IV ONE (22:00)
[2020-04-25] MEDS ORDERED: ACETAMINOPHEN IV (For NPO) 1,000 MG in EMPTY BAG 1 BAG IVPB ONE (22:30)
--- NOTE | 2020-04-25 22:43 | CT ---
EXAMINATION TYPE: CT abdomen w con DATE OF EXAM: 04/25/2020 COMPARISON: 09/16/2018 HISTORY: Abdominal pain, n/v, hematemesis. CT DLP: 666.5 mGycm Automated exposure control for dose reduction was used. CONTRAST: Performed with IV Contrast, patient injected with 100 mL of Isovue 300. Images were obtained from the diaphragm to the iliac crests with IV contrast. Lung bases are clear of infiltrate. There is no pleural effusion. Heart size is normal. There is no p ericardial effusion. Stomach is intact. Liver spleen pancreas are intact. Bile ducts are not dilated. Gallbladder is contr acted. There is no adrenal mass. Kidneys show satisfactory contrast opacification. There is no hydronephrosi s. Ureters are not dilated. There is no retroperitoneal adenopathy. Delayed images show normal renal excretion. There is partial visualization of the appendix which appears normal. There is no mesenteri c edema. There is no sign of ascites. There is no evidence of free air. The bony structures appear in tact. Lumbar vertebra have normal alignment. There is no compression fracture. IMPRESSION: Negative CT scan abdomen. No adverse change compared to old exam.
[2020-04-26] MEDS ORDERED: MORPHINE SULFATE 2 MG/ML SYRINGE IVP PRN (00:03)
[2020-04-26] MEDS ORDERED: ONDANSETRON 4 MG/2 ML VIAL IVP PRN (00:04)
[2020-04-26] MEDS ORDERED: PANTOPRAZOLE 40 MG TABLET PO SCH (07:30)
--- NOTE | 2020-05-02 08:56 | P.DS ---
Providers Date of admission: 04/25/20 09:43 Attending physician: Mio Pedraza MD Consults: 04/25/20 09:52 Consult Physician Routine Consulting Provider: Geovani Physician Consult Reason/Comments: History and Physical Do you want consulting provider notified?: Yes Primary care physician: Stated None - Discharge Diagnosis(es) (1) Suicide attempt by other psychotropic drug overdose Status: Acute Priority: Medium Hospital Course: I did not personally evaluate the patient. She was admitted to psychiatry then transferred to medicine for treatment of acute cystitis, nausea and vomiting. According to the EPS note the police brought her to the emergency room and completed a petition for hospitalization. She had reportedly attempted to overdose on trazodone. She told the EPS nurse that she had "screwed up everything in her life" and that she was "fighting the urges to cut herself." When she arrived on the psychiatric unit she complained of severe abdominal pain, vomiting and diarrhea. The liquid fertilizer servicer evaluated her and recommended transfer to medicine for the treatment of acute cystitis, nausea and vomiting. Medicine to consult psychiatry when patient is medically stable. Patient Condition at Discharge: Fair Plan - Discharge Summary New Discharge Prescriptions: No Action Cholecalciferol [Vitamin D3 (25 Mcg = 1000 Iu)] 5,000 unit PO DAILY Escitalopram [Lexapro] 10 mg PO DAILY 30 Days #30 tab ARIPiprazole [Abilify] 5 mg PO DAILY 30 Days #30 tab Propranolol [Inderal] 10 mg PO BID 30 Days #60 tab Pantoprazole [Protonix] 40 mg PO AC-BRKFST 30 Days #60 tablet. Discharge Medication List Cholecalciferol [Vitamin D3 (25 Mcg = 1000 Iu)] 5,000 unit PO DAILY 01/30/19 [History] ARIPiprazole [Abilify] 5 mg PO DAILY 30 Days #30 tab 04/28/20 [Rx] Escitalopram [Lexapro] 10 mg PO DAILY 30 Days #30 tab 04/28/20 [Rx] Pantoprazole [Protonix] 40 mg PO AC-BRKFST 30 Days #60 tablet. 04/28/20 [Rx] Propranolol [Inderal] 10 mg PO BID 30 Days #60 tab 04/28/20 [Rx] Follow up Appointment(s)/Referral(s): None,Stated [Primary Care Provider] - 1-2 days Discharge Disposition: ADMITTED IP TO THIS HOSP
== END 2020-04-25 22:06 | disposition short-term general hospital (02) | DRG 918 ==
LOC: EC 03:25 → 3MHU 09:43
PROVIDERS: ADMIT Psychiatry & Neurology Psychiatry; ATTEND Psychiatry & Neurology Psychiatry
DX: T43.212A Poisoning by selective serotonin and norepinephrine reuptake inhibitors, intentional self-harm, initial encounter (principal); N30.00 Acute cystitis without hematuria; F32.9 Major depressive disorder, single episode, unspecified; Z20.828 Contact with and (suspected) exposure to other viral communicable diseases; F41.9 Anxiety disorder, unspecified; F43.10 Post-traumatic stress disorder, unspecified; R11.2 Nausea with vomiting, unspecified; R10.11 Right upper quadrant pain; R19.7 Diarrhea, unspecified; Z79.899 Other long term (current) drug therapy; Z90.49 Acquired absence of other specified parts of digestive tract; Z87.19 Personal history of other diseases of the digestive system; Z87.39 Personal history of other diseases of the musculoskeletal system and connective tissue; Z98.51 Tubal ligation status; Z98.890 Other specified postprocedural states; Z88.5 Allergy status to narcotic agent; Z88.2 Allergy status to sulfonamides
CPT/HCPCS: 74018; 74160; 80053; 80306; 81001; 81025; 82075; 83735; 85025; 87635; 93005; 99285

== ENCOUNTER 2020-04-25 22:00 | Inpatient (IN) | payer OTHER ==
[2020-04-26] MEDS ORDERED: NALOXONE 0.4 MG/ML 1 ML VIAL IV PRN (00:05)
[2020-04-26] MEDS ORDERED: PANTOPRAZOLE 40 MG/10 ML VIAL IVP ONE ×2 (00:10→00:27)
[2020-04-26] MEDS: MORPHINE SULFATE 2 MG/ML SYRINGE IVP PRN ×3 (00:29→23:34)
[2020-04-26] MEDS: SODIUM CHLORIDE 0.9% 1,000 ML IV SCH ×3 (00:33→20:14)
[2020-04-26 00:39] LABS: Basophils % (A) 0 %; Eosinophils # (A) 0.1 k/uL (0-0.7); Eosinophils % (A) 1 %; HCT 40.6 % (34.0-46.0); Lymphocytes # (A) 0.6 k/uL (1.0-4.8); Lymphocytes % (A) 4 %; MCH 29.3 pg (25.0-35.0); MCV 91.4 fL (80.0-100.0); Mean Platelet Volume 7.2; Monocytes # (A) 0.2 k/uL (0-1.0); Monocytes % (A) 2 %; Neutrophils # (A) 14.4 k/uL (1.3-7.7); Neutrophils % (A) 93 %; Platelet Count 272 k/uL (150-450); RBC 4.44 m/uL (3.80-5.40); RDW 13.1 % (11.5-15.5); WBC 15.5 k/uL (3.8-10.6)
--- NOTE | 2020-04-26 00:48 | P.HPIM ---
History of Present Illness H&P Date: 04/25/20 The patient is a 35-year-old female with a PMH of marijuana abuse and chronic right upper quadrant abdominal pain who presented to the emergency room on 04/25/20 with a suicide attempt. The patient had reportedly taken 3 tablets of trazodone 50 mg. The patient was admitted to the [facility]. Following her admission, the patient noted diffuse abdominal pain along with multiple episodes of bilious vomiting. She was seen and evaluated on the mental health unit. She reported having upwards of 10 episodes of vomiting today, with the last 3-4 episodes of turning dark red and black in color. The patient reports having severe bouts of nausea and vomiting nearly every month, which lasts for 2-3 days at a time, improved with warm showers or baths, and then resolve spontaneously. The patient notes that she normally does not seek medical attention for these episodes. She denied ever experiencing bright red or bloody emesis and notes that her pain is usually 3-4 out of 10, which is now currently 10 out of 10. The pain is epigastric, nonradiating, exacerbated by laying on her back. Patient reports smoking marijuana daily with her last use prior to presentation. Reported 3-4 episodes of watery diarrhea throughout the day today. Patient also reported mild dysuria. Denied fever, chest pain, shortness of breath, or chills. Denied headache, weakness, numbness, tingling. Review of Systems Pertinent positives and negatives as discussed in HPI, a complete review of s ystems was performed and all other systems are negative. Past Medical History Past Medical History: No Reported History Additional Past Medical History / Comment(s): RUQ abdmonial pain several times, no diagnoses, depression, insomnia History of Any Multi-Drug Resistant Organisms: None Reported Past Surgical History: Cholecystectomy, Orthopedic Surgery, Tubal Ligation Additional Past Surgical History / Comment(s): Right knee scope secondary to meniscal repair, tubal ligation, IUD removed Past Anesthesia/Blood Transfusion Reactions: No Reported Reaction Smoking Status: Current every day smoker, Never smoker - Past Family History Mother Additional Family Medical History / Comment(s): Gallbladder disease Medications and Allergies Home Medications Medication Instructions Recorded Confirmed Type Cholecalciferol [Vitamin D3 (25 5,000 unit PO DAILY 01/30/19 04/25/20 History Mcg = 1000 Iu)] ARIPiprazole [Abilify] 5 mg PO DAILY 14 Days tab 02/04/20 04/25/20 Rx Escitalopram [Lexapro] 20 mg PO DAILY 14 Days tab 02/04/20 04/25/20 Rx Pantoprazole [Protonix] 40 mg PO AC-[id number] 14 Days 02/04/20 04/25/20 Rx tablet. Propranolol [Inderal] 10 mg PO BID 14 Days tab 02/04/20 04/25/20 Rx hydrOXYzine pamoate [Vistaril] 25 mg PO Q8HR PRN 14 Days cap 02/04/20 04/25/20 Rx traZODone HCL [Desyrel] 50 mg PO HS PRN 14 Days tab 02/04/20 04/25/20 Rx Allergies Allergy/AdvReac Type Severity Reaction Status Date / Time Sulfa (Sulfonamide Allergy Severe Dyspnea Verified 04/25/20 11:39 Antibiotics) codeine Allergy Itching Verified 04/25/20 11:39 Physical Exam General: non toxic, in moderate distress from abdominal pain, appears older than stated age, overweight Derm: no unusual rashes/lesions no unusual ecchymoses, warm, dry Head: atraumatic, normocephalic, symmetric Eyes: EOMI, no lid lag, anicteric sclera, pupils equal round reactive to light ENT: Nose and ears atraumatic, no thrush, no pharyngeal erythema Neck: No thyromegaly, no cervical lymphadenopathy, trachea midline, supple Mouth: no lip lesion, mucus membranes moist Cardiovascular: S1S2 reg, no murmur, positive posterior tibial pulse bilateral, no edema, capillary refill less than 2 seconds Lungs: CTA bilateral, no rhonchi, no rales , no accessory muscle use Abdominal: soft, epigastric mild tenderness to palpation, no guarding, no appreciable organomegaly Ext: no gross muscle atrophy, muscle strength 5 out of 5 in all 4 extremities grossly, no contractures, Neuro: CN II-XI grossly intact, light touch intact all 4 extremities, finger to nose within normal limits, Psych: Alert, oriented, appropriate affect Assessment and Plan Plan: Intractable nausea and vomiting, suspected cannabinoid hyperemesis syndrome -Continue with antiemetics -Pain control -IVFs -NPO Hematemesis, likely Bibi-Do tears -Continue with above management -Monitor CBC every 8 hourly -GI consult -CT abd/pelvis unremarkable Depression with suicidal ideation -Suicide precautions -Psychiatry consult UTI -Continue with ceftriaxone -Follow up blood and urine cultures Hyperglycemia -Obtain A1c -Blood glucose monitoring with insulin sliding scale DVT prophylaxis -IPCDs The patient is admitted with an anticipated greater than 2 midnight stay for evaluation of N/V CODE STATUS: Full Code Discussed with: Patient Anticipated discharge date: 2-[address]: [facility] A total of 40 minutes was spent on the care of this complex patient more than 50% of the time was spent in counseling and care coordination.
[2020-04-26] MEDS ORDERED: MORPHINE SULFATE 2 MG/ML SYRINGE IVP STA (00:51)
[2020-04-26 00:54] LABS: Partial Thromboplastin Time 22.2 sec (22.0-30.0); Prothrombin Time 10.5 sec (9.0-12.0)
[2020-04-26] MEDS: ONDANSETRON 4 MG/2 ML VIAL IVP PRN ×3 (00:56→16:11)
[2020-04-26 01:09] LABS: ALT 14 U/L (4-34); AST 18 U/L (14-36); African American GFR (CKD) >90 (>60 ml/min/1.73 sqM); Albumin 3.8 g/dL (3.5-5.0); Alkaline Phosphatase 68 U/L (38-126); Anion Gap 8 mmol/L; Blood Urea Nitrogen 7 mg/dL (7-17); Calcium 9.1 mg/dL (8.4-10.2); Carbon Dioxide 21 mmol/L (22-30); Chloride 111 mmol/L (98-107); Glucose 150 mg/dL (74-99); Non-African American GFR(CKD) >90 (>60 ml/min/1.73 sqM); Potassium 4.2 mmol/L (3.5-5.1); Sodium 140 mmol/L (137-145); Total Bilirubin 0.4 mg/dL (0.2-1.3); Total Protein 7.1 g/dL (6.3-8.2)
[2020-04-26 06:05] LABS: Glucose,Whole Blood 109 mg/dL (75-99)
[2020-04-26] MEDS: INSULIN ASPART (NovoLOG) 100 UNIT/ML VIAL SQ SCH ×4 (06:06→21:20)
[2020-04-26 08:02] LABS: HCT 36.5 % (34.0-46.0); HGB 11.6 gm/dL (11.4-16.0); MCH 29.6 pg (25.0-35.0); MCHC 31.8 g/dL (31.0-37.0); MCV 93.1 fL (80.0-100.0); Mean Platelet Volume 8.6; Platelet Count 245 k/uL (150-450); RBC 3.92 m/uL (3.80-5.40); RDW 13.3 % (11.5-15.5)
--- NOTE | 2020-04-26 08:58 | P.PN ---
Subjective Progress Note Date: 04/26/20 Principal diagnosis: Vomiting Patient was feeling slightly better today. Currently she feels that her nausea is coming back. Still having abdominal pain. She she did not have a bowel movement today. No fevers or chills. Objective - Vital Signs Vital signs: Vital Signs Temp 98.7 F 04/26/20 08:00 Pulse 102 H 04/26/20 08:00 Resp 18 04/26/20 08:00 BP 95/54 04/26/20 08:00 Pulse Ox 97 04/26/20 08:00 Intake & Output 04/25/20 04/26/20 04/26/20 18:59 06:59 18:59 Intake Total 0 Balance 0 Weight 68.4 kg Intake: Oral 0 Other: Voiding Method Toilet Incontinent # Voids 1 - Exam Constitutional: No acute distress, conversant, pleasant Eyes:Anicteric sclerae, moist conjunctiva, no lid-lag, PERRLA, ENMT: Oropharynx clear, no erythema, exudates Neck: Supple, FROM, no masses, or JVD, No carotid bruits, No thyromegaly Lungs: Clear to auscultation, Clear to percussion, Normal respiratory effort, no accessory muscle use Cardiovascular: Heart regular in rate and rhythm, No murmurs, gallops, or rubs, No peripheral edema Abdominal: Soft, diffusely tender, no guarding, rebound or rigidity, Normoactive bowel sounds, No hepatomegaly, No splenomegaly, No palpable mass Skin: Normal temperature, tone, texture, turgor, no induration, No subcutaneous nodules, No rash, lesions, No ulcers Extremities: No digital cyanosis, No clubbing, Pedal pulses intact and symmetrical, Radial pulses intact and symmetrical, No calf tenderness Psychiatric: Alert and oriented to person, place and time, appropriate affect, i ntact judgement Neuro: Muscles Strength 5/5 in all 4 extremities, Sensation to light touch grossly present throughout, Cranial nerves II-XII grossly intact, no focal sensory deficits - Labs CBC & Chem 7: 04/26/20 07:18 04/26/20 00:29 Labs: Abnormal Lab Results - Last 24 Hours (Table) 04/26/20 04/26/20 04/26/20 Range/Units 00:29 00:29 06:03 WBC 15.5 H (3.8-10.6) k/uL Neutrophils # 14.4 H (1.3-7.7) k/uL Lymphocytes # 0.6 L (1.0-4.8) k/uL Chloride 111 H (98-107) mmol/L Carbon Dioxide 21 L (22-30) mmol/L Glucose 150 H (74-99) mg/dL POC Glucose (mg/dL) 109 H (75-99) mg/dL 04/26/20 Range/Units 07:18 WBC 12.0 H (3.8-10.6) k/uL Neutrophils # (1.3-7.7) k/uL Lymphocytes # (1.0-4.8) k/uL Chloride (98-107) mmol/L Carbon Dioxide (22-30) mmol/L Glucose (74-99) mg/dL POC Glucose (mg/dL) (75-99) mg/dL Assessment and Plan Plan: Intractable nausea and vomiting, suspected cannabinoid hyperemesis syndrome -Continue with antiemetics -Pain control -IVFs -NPO Hematemesis, likely Bibi-Do tears -Hemoglobin stable, continue to follow -PPI IV twice daily -GI consult Depression with suicidal ideation -Suicide precautions -Psychiatry consult UTI -Continue with ceftriaxone -Follow up blood and urine cultures Hyperglycemia -A1c pending -Blood glucose monitoring with insulin sliding scale DVT prophylaxis -IPCDs Anticipated discharge date: 1-[address]: [facility]
[2020-04-26] MEDS ORDERED: PANTOPRAZOLE 40 MG/10 ML VIAL IVP SCH (09:00)
[2020-04-26] MEDS: PANTOPRAZOLE 40 MG/10 ML VIAL IVP SCH ×2 (09:39→20:13)
[2020-04-26] MEDS: METOCLOPRAMIDE 5 MG/ML 2 ML VIAL IVP PRN ×2 (10:40→20:13)
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
[2020-04-26 12:05] LABS: Glucose,Whole Blood 93 mg/dL (75-99)
[2020-04-26 16:23] LABS: Hemoglobin A1C 4.8 % (4.0-6.0)
[2020-04-26 17:07] LABS: Glucose,Whole Blood 85 mg/dL (75-99)
--- NOTE | 2020-04-26 20:16 | CONS ---
CONSULTATION DATE OF DICTATION: 04/26/2020 REASON FOR CONSULTATION: Abdominal pain, nausea, vomiting. HISTORY OF PRESENT ILLNESS: The patient is a 35-year-old pleasant white female with a history of marijuana abuse who was admitted to the hospital after she had a suicide attempt by taking 3 tablets of trazodone yesterday. Subsequently she came to the emergency room complaining of severe abdominal pain associated with multiple episodes of nausea and vomiting which were initially bilious in nature, and subsequently she had a small amount of streaky bright blood. She threw up at least 10 or 15 times yesterday. The patient states that she has had these episodes on and off for the last 16 years' duration. She has these episodes about once or twice a month, each time lasting for 1 or 2 days. Often they are triggered by migraine headaches, following which she becomes intensely nauseated, and she throws up several times. She also complains of intermittent heartburn and epigastric burning pain. She usually takes Tums on a regular basis at home. She is feeling much better today with Zofran and Protonix. She never had an upper endoscopy in the past. PAST MEDICAL HISTORY: Her past medical history is significant for chronic intermittent epigastric pain associated with nausea vomiting and migraine headaches, history of anxiety, insomnia, depression. PAST SURGICAL HISTORY: Cholecystectomy, tubal ligation, right knee scope. SOCIAL HISTORY: Chronic smoker. She smokes pot every day. No alcohol abuse. FAMILY HISTORY: Mother had gallbladder disease. MEDICATIONS: Medications at home include Abilify, Lexapro, Protonix, Inderal, Vistaril and Desyrel. ALLERGIES: SULFA, CODEINE. REVIEW OF SYSTEMS: CARDIOPULMONARY: No chest pain or shortness of breath. GENITOURINARY: No dysuria or hematuria. MUSCULOSKELETAL: Unremarkable. SKIN: Unremarkable. ENDOCRINE: Unremarkable. PSYCHIATRIC: Recent suicidal attempt. Psychiatry has been consulted. History of anxiety and depression. ENT/VISION: Unremarkable. CONSTITUTIONAL: No recent weight loss. No fever, chills, night sweats. PHYSICAL EXAMINATION: She appears comfortable. No apparent distress. VITAL SIGNS: Stable. Blood pressure 125/82, pulse rate 81, temperature 98.7. HEENT examination unremarkable. Conjunctivae pink. Sclerae anicteric. Oral cavity no lesions. NECK: No JVD or lymph node enlargement. CHEST: Clear to auscultation. HEART: Regular rate and rhythm. ABDOMEN: Soft. Mild tenderness in the epigastric area. Bowel sounds are positive. No organomegaly. EXTREMITIES: No pedal edema. SKIN: No rashes. NEUROLOGIC: Alert and oriented x3. No focal deficits. LABS: WBC 15.5, hemoglobin 13, platelets normal. Basic metabolic panel is within normal limits. AST, ALT, T-bilirubin and alkaline phosphatase are within normal limits. IMPRESSION: 1. Intermittent episodes of severe epigastric and right upper quadrant abdominal pain followed by nausea and vomiting of 16 years' duration, and these symptoms are triggered by migraine headaches and usually last for a day or two and resolve. The patient also has intermittent epigastric discomfort and heartburn consistent with gastroesophageal reflux disease. It appears that most of her episodes are triggered by migraine headaches, but she has a component of gastroesophageal reflux disease, also. 2. Suicidal attempt and history of depression. Psychiatry following the patient closely. RECOMMENDATIONS: 1. Recommended that the patient see a neurologist for management of migraine headaches on an outpatient basis. 2. In the meantime, continue with Protonix 40 mg twice daily. 3. Antiemetics as needed. 4. No plans for any endoscopic intervention at the present time. Most likely patient had a Bibi-Do tear from excessive retching and nausea and vomiting which appears to have subsided, and hemoglobin is stable. 5. Continue symptomatic supportive care. Will follow with you closely. Thank you for this consultation. CHANCE / ANUSHKA: [id number] /
[2020-04-26] MEDS ORDERED: ACETAMINOPHEN IV (For NPO) 1,000 MG in EMPTY BAG 1 BAG IVPB ONE (20:55)
[2020-04-26 21:01] LABS: Glucose,Whole Blood 91 mg/dL (75-99)
[2020-04-27] MEDS: ONDANSETRON 4 MG/2 ML VIAL IVP PRN ×3 (03:34→21:22)
[2020-04-27] MEDS: MORPHINE SULFATE 2 MG/ML SYRINGE IVP PRN ×4 (05:32→23:29)
[2020-04-27] MEDS: INSULIN ASPART (NovoLOG) 100 UNIT/ML VIAL SQ SCH ×3 (05:55→17:00)
[2020-04-27 06:00] LABS: Glucose,Whole Blood 96 mg/dL (75-99)
[2020-04-27] MEDS: SODIUM CHLORIDE 0.9% 1,000 ML IV SCH ×2 (06:40→17:00)
[2020-04-27] MEDS: METOCLOPRAMIDE 5 MG/ML 2 ML VIAL IVP PRN ×3 (08:09→23:29)
[2020-04-27] MEDS: PANTOPRAZOLE 40 MG/10 ML VIAL IVP SCH ×2 (08:10→21:22)
[2020-04-27] MEDS: ESCITALOPRAM 10 MG TAB PO SCH (08:10)
--- NOTE | 2020-04-27 10:35 | P.PN ---
Subjective Progress Note Date: 04/27/20 Principal diagnosis: Vomiting She patient has minimal nauseous morning. No throwing up today. She reported to me frequent migraine headaches at home and those usually start her episodes of abdominal pain, nausea and vomiting. She has up to 3 migraines every week. She has not tried any medications for that. Objective - Vital Signs Vital signs: Vital Signs Temp 98 F 04/27/20 08:00 Pulse 61 04/27/20 08:00 Resp 18 04/27/20 08:00 BP 98/58 04/27/20 08:00 Pulse Ox 97 04/27/20 08:00 Intake & Output 04/26/20 04/27/20 04/27/20 18:59 06:59 18:59 Intake Total 120 480 Balance 120 480 Weight 69.4 kg Intake: Oral 120 480 Other: Voiding Method Toilet Toilet Toilet Incontinent Incontinent Incontinent # Voids 2 1 - Exam Constitutional: No acute distress, conversant, pleasant Eyes:Anicteric sclerae, moist conjunctiva, no lid-lag, PERRLA, ENMT: Oropharynx clear, no erythema, exudates Neck: Supple, FROM, no masses, or JVD, No carotid bruits, No thyromegaly Lungs: Clear to auscultation, Clear to percussion, Normal respiratory effort, no accessory muscle use Cardiovascular: Heart regular in rate and rhythm, No murmurs, gallops, or rubs, No peripheral edema Abdominal: Soft, diffusely tender, no guarding, rebound or rigidity, Normoactive bowel sounds, No hepatomegaly, No splenomegaly, No palpable mass Skin: Normal temperature, tone, texture, turgor, no induration, No subcutaneous nodules, No rash, lesions, No ulcers Extremities: No digital cyanosis, No clubbing, Pedal pulses intact and symmetrical, Radial pulses intact and symmetrical, No calf tenderness Psychiatric: Alert and oriented to person, place and time, appropriate affect, intact judgement Neuro: Muscles Strength 5/5 in all 4 extremities, Sensation to light touch grossly present throughout, Cranial nerves II-XII grossly intact, no focal sensory deficits - Labs CBC & Chem 7: 04/26/20 07:18 04/26/20 00:29 Labs: Microbiology - Last 24 Hours (Table) 04/26/20 00:29 Blood Culture - Preliminary Blood No Growth after 24 hours Assessment and Plan Plan: Intractable nausea and vomiting, suspected cannabinoid hyperemesis syndrome versus secondary to migraine headaches. -Continue with antiemetics -Pain control -IVFs -GI not planning EGD for now. -Add Neurontin for migraine control Hematemesis, likely Bibi-Do tears -Hemoglobin stable, continue to follow -PPI IV twice daily -GI consult Depression with suicidal ideation -Suicide precautions -Psychiatry consult UTI -Continue with ceftriaxone -Follow up blood cultures negative Hyperglycemia -A1c ok -Blood glucose was high sec to stress, now ok DVT prophylaxis -IPCDs Anticipated discharge date: [address]: [facility]
[2020-04-27] MEDS: GABAPENTIN 100 MG CAP PO SCH ×3 (11:18→21:22)
--- NOTE | 2020-04-27 14:02 | P.PN ---
Progress Note - Text Progress Note Date: 04/27/20 Interval History: Patient was seen at bedside and was directable and agreeable to speak with the senior writer. The patient currently expresses a desire to go home. She is not reporting any suicidal or homicidal ideation, intention, and/or plan. She vehemently denies that her taking 3 tablets of trazodone was any intention to take her life. She reported that she was just want to sleep. She is currently stating that she has a strong desire to live for her family. The patient is not reporting any auditory or visualizations. She denies any paranoia or delusions. She has been adherent with her medications and is not reporting any significant side effects. She understands that she has to be adherent with her medications in order to properly manage her mental health. The patient also expresses strong desire to quit marijuana due to her hyperemesis Mental Status Exam: General Appearance: Patient appears to be stated age is alert, directable, and cooperative. Behavior: Patient is calmly seated without any agitated behavior. Speech: Patient's speech is fluent and nonpressured. Mood/Affect: Mood is improving mildly, affect is congruent and constricted. Suicidality/Homicidality: Patient denies any suicidal or homicidal ideation, intention, and/or plan. Perceptions: Patient denies any auditory or visual hallucinations. Though content/process: There is no evidence of any delusional thought content and thought process is linear and goal-directed. Memory and concentration: AOX3, grossly intact for the purposes of this session Judgment and insight: Improving mildly Assessment Major depressive disorder, recurrent Cannabis use disorder Plan: -At this time, the patient does not meet criteria for inpatient psychiatric admission. The patient, once medically stable, will be discharged home. -We will continue her Lexapro 10 mg by mouth daily for depression/anxiety. -We will restart the patient's Abilify and inderal. We will discontinue trazodone due to overdose. -Recommend outpatient psychiatric follow-up. Strongly recommend outpatient p sychotherapy for the patient as well.
--- NOTE | 2020-04-27 16:41 | P.PN ---
Subjective Progress Note Date: 04/27/20 Principal diagnosis: Abdominal pain, nausea, vomiting This is a 35-year-old pleasant white female with a history of marijuana abuse who was admitted to the hospital after she had a suicide attempt by taking 3 tablets of trazodone. She subsequently came to the emergency room complaining of severe abdominal pain associated with multiple episodes of nausea and vomiting which were initially bilious in nature and subsequently has small amount of streaky blood. The patient states that she gets episodes once to twice a month each time lasting for 1-3 days. Often they are triggered by migraine headaches. She also is complaining of intermittent epigastric pain which she usually takes Tums. The patient was started on Protonix 40 mg twice daily. Today she states her nausea and vomiting has improved, however she still has severe epigastric pain. She has been afebrile. Patient states she's not tolerating her diet well, is causing pain whenever she eats. Objective - Vital Signs Vital signs: Vital Signs Temp 98 F 04/27/20 08:00 Pulse 61 04/27/20 08:00 Resp 18 04/27/20 08:00 BP 98/58 04/27/20 08:00 Pulse Ox 97 04/27/20 08:00 Intake & Output 04/26/20 04/27/20 04/27/20 18:59 06:59 18:59 Intake Total 120 480 Balance 120 480 Weight 69.4 kg Intake: Oral 120 480 Other: Voiding Method Toilet Toilet Toilet Incontinent Incontinent Incontinent # Voids 2 1 - Exam General appearance: The patient is alert, oriented, in no acute distress. HET: Head is normocephalic and atraumatic. Conjunctiva pink. Sclera anicteric. Neck: Supple without lymphadenopathy. Abdomen: Soft, epigastric tenderness and diffuse tenderness, nondistended with bowel sounds. No guarding or rigidity. Extremities: Normal skin color and turgor. No pedal edema Neurological: No focal deficits. Alert and oriented 3. - Labs CBC & Chem 7: 04/26/20 07:18 04/26/20 00:29 Labs: Microbiology - Last 24 Hours (Table) 04/26/20 00:29 Blood Culture - Preliminary Blood No Growth after 24 hours Assessment and Plan (1) Abdominal pain Narrative/Plan: The young lady with history of intermittent episodes of severe epigastric and right upper quadrant abdominal pain followed by nausea and vomiting since she's been 15 years old. She states the symptoms are triggered generally by migraine headaches and usually last for a day to 3 days and then resolved. She also has intermittent epigastric discomfort and heartburn consistent with gastroesophageal reflux disease, for which she takes Tums with relief. Today she is complaining of continued epigastric pain, nausea and vomiting have improved. We'll proceed with upper endoscopy tomorrow. Current Visit: No Status: Acute Code(s): R10.9 - UNSPECIFIED ABDOMINAL PAIN SNOMED Code(s): 61422387 (2) Nausea & vomiting Current Visit: No Status: Acute Code(s): R11.2 - NAUSEA WITH VOMITING, UNSPECIFIED SNOMED Code(s): 44187033 (3) Cannabis abuse Current Visit: No Status: Acute Priority: Low Code(s): F12.10 - CANNABIS ABUSE, UNCOMPLICATED SNOMED Code(s): 80954921 (4) Suicidal thoughts Narrative/Plan: Patient was admitted with suicide attempt and history of depression. Psychiatry following the patient closely. Current Visit: No Status: Acute Code(s): R45.851 - SUICIDAL IDEATIONS SNOMED Code(s): 7188795 Plan: 1. Nothing by mouth after midnight 2. She is scheduled for upper endoscopy tomorrow 3. Antiemetics as needed 4. Continue Protonix 40 mg twice daily 5. Recommend patient see a neurologist for management of migraine headaches as an outpatient basis 6. Continue symptomatic and supportive care We will follow with you closely Dr. Kaitlyn Rae I agree with the dictator's note, documented as a scribe by Yesy Roach.
[2020-04-27 20:25] LABS: Glucose,Whole Blood 81 mg/dL (75-99)
[2020-04-27] MEDS: PROPRANOLOL 10 MG TAB PO SCH (21:22)
[2020-04-27] MEDS ORDERED: LACTATED RINGERS 1,000 ML IV SCH (21:45)
[2020-04-28] MEDS: SODIUM CHLORIDE 0.9% 1,000 ML IV SCH ×2 (06:20→13:57)
[2020-04-28] MEDS: MORPHINE SULFATE 2 MG/ML SYRINGE IVP PRN (06:21)
[2020-04-28] MEDS: ONDANSETRON 4 MG/2 ML VIAL IVP PRN (06:21)
[2020-04-28] MEDS ORDERED: ARIPiprazole 5 MG TAB PO SCH (09:00)
[2020-04-28 09:11] LABS: Basophils % (A) 0 %; Eosinophils # (A) 0.1 k/uL (0-0.7); Eosinophils % (A) 1 %; HCT 39.1 % (34.0-46.0); HGB 12.7 gm/dL (11.4-16.0); Lymphocytes # (A) 2.3 k/uL (1.0-4.8); Lymphocytes % (A) 20 %; MCH 29.4 pg (25.0-35.0); MCHC 32.4 g/dL (31.0-37.0); MCV 90.7 fL (80.0-100.0); Mean Platelet Volume 8.2; Monocytes # (A) 0.6 k/uL (0-1.0); Monocytes % (A) 5 %; Neutrophils # (A) 8.5 k/uL (1.3-7.7); Neutrophils % (A) 74 %; Platelet Count 254 k/uL (150-450); RBC 4.31 m/uL (3.80-5.40); RDW 13.1 % (11.5-15.5); WBC 11.6 k/uL (3.8-10.6)
[2020-04-28 09:31] LABS: African American GFR (CKD) >90 (>60 ml/min/1.73 sqM); Anion Gap 6 mmol/L; Blood Urea Nitrogen 8 mg/dL (7-17); Calcium 8.7 mg/dL (8.4-10.2); Carbon Dioxide 25 mmol/L (22-30); Chloride 105 mmol/L (98-107); Glucose 80 mg/dL (74-99); Non-African American GFR(CKD) >90 (>60 ml/min/1.73 sqM); Potassium 3.6 mmol/L (3.5-5.1); Sodium 136 mmol/L (137-145)
[2020-04-28] MEDS: PANTOPRAZOLE 40 MG/10 ML VIAL IVP SCH (10:01)
[2020-04-28] MEDS ORDERED: PROPOFOL 10 MG/ML 20 ML VIAL IV ONE (12:36)
[2020-04-28] MEDS ORDERED: LIDOCAINE 1% INJ 10MG/ML (20 ML MDV) ONE (12:36)
[2020-04-28] MEDS ORDERED: IV FLUID CONTINUATION 1,000 ML IV ONE (12:37)
--- NOTE | 2020-04-28 12:49 | P.PCN ---
Date of Procedure: 04/28/20 Procedure(s) Performed: BRIEF HISTORY: Patient is a 32-year-old, pleasant, female scheduled for an upper endoscopy as a part of evaluation of severe epigastric pain with nausea vomiting for the last several years duration.. PROCEDURE PERFORMED: Esophagogastroduodenoscopy with biopsy PREOPERATIVE DIAGNOSIS: Severe epigastric pain/intermittent nausea vomiting of several years. IV sedation per anesthesia. PROCEDURE: After informed consent was obtained, the patient was brought into the endoscopy unit. IV sedation was administered by Anesthesia under continuous monitoring. Initially the Olympus GIF-140 video endoscope was inserted into the mouth. Esophagus intubated without any difficulty. It was gradually advanced into the stomach and duodenum and carefully examined. The bulb and the second part of the duodenum appeared normal. The scope at this time was withdrawn to the stomach, adequately insufflated with air, and upon careful examination, mucosa of the antrum, appeared normal. In the proximal body the stomach there was mild gastritis noted and biopsies were done from this area. Rest of the body, cardia and the fundus appeared normal. The scope was then withdrawn into the esophagus. The GE junction was located at 39 cm from the incisors. Small hiatal hernia noted. There were linear erosions and once a fissure ulceration in the distal esophagus consistent with LA grade B reflux esophagitis. Rest of the esophagus appeared normal thee patient tolerated the procedure well. Impression: 1. Linear erosions in the distal esophagus with multiple superficial ulcerations consistent with LA grade C reflux esophagitis. 2. Hiatal hernia. 3. Mild gastritis in the proximal body RECOMMENDATIONS: The findings of this examination were discussed with the patient. She will continue with Protonix 40 mg twice daily and follow antireflux measures..
[2020-04-28] MEDS: PROPRANOLOL 10 MG TAB PO SCH (13:57)
[2020-04-28] MEDS: ESCITALOPRAM 10 MG TAB PO SCH (13:57)
--- NOTE | 2020-04-28 14:46 | P.DS ---
Providers Date of admission: 04/25/20 22:12 Expected date of discharge: 04/28/20 Attending physician: Piper Pittman MD Consults: 04/26/20 00:05 Consult Physician Urgent Consulting Provider: Lisa Rae Consult Reason/Comments: Hematemesis Do you want consulting provider notified?: Yes 04/26/20 00:36 Consult Physician Routine Consulting Provider: Mio Pedraza Consult Reason/Comments: Depression Do you want consulting provider notified?: Already Contacted Primary care physician: Stated None Hospital Course: 35-year-old female with a PMH of marijuana abuse and chronic right upper quadrant abdominal pain who presented to the emergency room on 04/25/20 with a suicide attempt. The patient had reportedly taken 3 tablets of trazodone 50 mg. The patient was admitted to the [facility]. Following her admission, the patient noted diffuse abdominal pain along with multiple episodes of bilious vomiting. She was seen and evaluated on the mental health unit. She had upwards of 10 episodes of vomiting, with the last 3-4 episodes turning dark red and black in color. The patient reports having severe bouts of nausea and vomiting nearly every month, which lasts for 2-3 days at a time, improved with warm showers or baths, and then resolve spontaneously. The patient notes that she normally does not seek medical attention for these episodes. She denied ever experiencing br ight red or bloody emesis and notes that her pain is usually 3-4 out of 10, which is now currently 10 out of 10. The pain is epigastric, nonradiating, exacerbated by laying on her back. Patient reports smoking marijuana daily with her last use prior to presentation. Reported 3-4 episodes of watery diarrhea throughout the day today. Patient also reported mild dysuria. Denied fever, chest pain, shortness of breath, or chills. Denied headache, weakness, numbness, tingling. Laboratory evaluation showed leukocytosis of 15,000.Showed slight metabolic acidosis and hyperglycemia. Her glucose was 150. Abdominal x-ray and abdominal CT scan were done and both came back ok. Further history taking revealed that patient discontinued all of her medications 3 months ago. According to her she was unable to obtain them. The gastrointestinal symptoms were interestingly associated with her migraine headaches. She was not taking anything for her migraine. Migraine episodes were pretty frequent at least once a week. Sometimes she gets them 3 times a week. Patient was evaluated by gastroenterology who did an EGD that showed some esophagitis and upper gastritis. Biopsies were taken and Protonix was recommended. Patient needs to follow with GI in regards to her biopsy results. Patient was seen by psychiatry who did not think that she qualifies for an inpatient psychiatric admission. Outpatient psychotherapy was advised, patient is aware. Patient was reinitiated on Inderal, Lexapro and Abilify by psychiatry. Prescriptions were provided for those as well as PPI upon discharge. Patient was advised to quit smoking marijuana as that could be contributing to her symptoms. She showed some motivation to quit. Patient will be discharged home in a stable condition. Plan - Discharge Summary Discharge Rx Participant: Yes New Discharge Prescriptions: New Escitalopram [Lexapro] 10 mg PO DAILY 30 Days #30 tab Continue Cholecalciferol [Vitamin D3 (25 Mcg = 1000 Iu)] 5,000 unit PO DAILY ARIPiprazole [Abilify] 5 mg PO DAILY 30 Days #30 tab Propranolol [Inderal] 10 mg PO BID 30 Days #60 tab Pantoprazole [Protonix] 40 mg PO AC-BRKFST 30 Days #60 tablet. Discontinued traZODone HCL [Desyrel] 50 mg PO HS PRN 14 Days tab PRN Reason: Insomnia Escitalopram [Lexapro] 20 mg PO DAILY 14 Days tab hydrOXYzine pamoate [Vistaril] 25 mg PO Q8HR PRN 14 Days cap PRN Reason: Anxiety Discharge Medication List Cholecalciferol [Vitamin D3 (25 Mcg = 1000 Iu)] 5,000 unit PO DAILY 01/30/19 [History] ARIPiprazole [Abilify] 5 mg PO DAILY 30 Days #30 tab 04/28/20 [Rx] Escitalopram [Lexapro] 10 mg PO DAILY 30 Days #30 tab 04/28/20 [Rx] Pantoprazole [Protonix] 40 mg PO AC-BRKFST 30 Days #60 tablet. 04/28/20 [Rx] Propranolol [Inderal] 10 mg PO BID 30 Days #60 tab 04/28/20 [Rx]
[2020-04-28 17:22] VITALS: BP 125/74; PULSE 55; RESP 16; TEMP 98.2
== END 2020-04-28 18:31 | disposition home or self-care (01) | DRG 381 ==
LOC: 3SCARD 22:12
PROVIDERS: ADMIT Internal Medicine; ATTEND Internal Medicine
PROC: 0DB68ZX Excision of Stomach, Via Natural or Artificial Opening Endoscopic, Diagnostic (ICD-10-PCS; principal; 2020-04-28 08:40)
DX: K22.10 Ulcer of esophagus without bleeding (principal); N39.0 Urinary tract infection, site not specified; F33.2 Major depressive disorder, recurrent severe without psychotic features; K21.00 Gastro-esophageal reflux disease with esophagitis, without bleeding; G43.909 Migraine, unspecified, not intractable, without status migrainosus; K44.9 Diaphragmatic hernia without obstruction or gangrene; T43.212A Poisoning by selective serotonin and norepinephrine reuptake inhibitors, intentional self-harm, initial encounter; K29.70 Gastritis, unspecified, without bleeding; F17.210 Nicotine dependence, cigarettes, uncomplicated; G47.00 Insomnia, unspecified; F50.9 Eating disorder, unspecified; F12.10 Cannabis abuse, uncomplicated; Z79.899 Other long term (current) drug therapy; Z68.29 Body mass index [BMI] 29.0-29.9, adult; Z81.8 Family history of other mental and behavioral disorders; Z83.79 Family history of other diseases of the digestive system; Z56.0 Unemployment, unspecified; Z88.5 Allergy status to narcotic agent; Z88.2 Allergy status to sulfonamides; Z98.51 Tubal ligation status; Z90.49 Acquired absence of other specified parts of digestive tract; R73.9 Hyperglycemia, unspecified
CPT/HCPCS: 43239; 80048; 80053; 81025; 83036; 83605; 83735; 85025; 85027; 85610; 85730; 87040; 88305

== ENCOUNTER 2020-09-04 14:45 | Emergency (ER) | payer OTHER ==
[2020-09-04 14:50] VITALS: RESP 18; TEMP 98.9
[2020-09-04] MEDS ORDERED: ONDANSETRON 4 MG/2 ML VIAL IVP STA (15:07)
[2020-09-04] MEDS ORDERED: SODIUM CHLORIDE 0.9% 1,000 ML IV STA (15:07)
[2020-09-04] MEDS ORDERED: KETOROLAC 15 MG/ML 1 ML VIAL IVP STA (15:07)
--- NOTE | 2020-09-04 15:10 | ED ---
General Adult HPI - General Chief complaint: Nausea/Vomiting/Diarrhea Stated complaint: COVID+, Vomiting Time Seen by Provider: 09/04/20 14:51 Source: patient Mode of arrival: ambulatory Limitations: no limitations - History of Present Illness Initial comments: 35-year-old female presents to the emergency room for a chief complaint of nausea vomiting diarrhea. Patient reports she is positive for Panda virus. Patient reports that she tested +7 days ago on August 28. Patient states she is having nausea vomiting diarrhea throughout the day. She is having some abdominal cramping that comes and goes as well but denies any significant pain. Patient does have a history of cholecystectomy. She is also having a cough and some shortness of breath. Patient reports that her symptoms do not seem to be improving. Patient has no other complaints at this time including shortness of breath, chest pain, abdominal pain, headache, or visual changes. - Related Data Home Medications Medication Instructions Recorded Confirmed Albuterol Inhaler [Ventolin Hfa 2 puff INHALATION RT-Q4H PRN 09/04/20 09/04/20 Inhaler] Previous Rx's Medication Instructions Recorded Ondansetron [Zofran ODT] 4 mg PO Q8HR PRN #15 tab 09/04/20 Allergies Allergy/AdvReac Type Severity Reaction Status Date / Time Sulfa (Sulfonamide Allergy Severe Dyspnea Verified 09/04/20 16:08 Antibiotics) codeine Allergy Itching Verified 09/04/20 16:08 Review of Systems ROS Statement: Those systems with pertinent positive or pertinent negative responses have been documented in the HPI. ROS Other: All systems not noted in ROS Statement are negative. Past Medical History Past Medical History: No Reported History Additional Past Medical History / Comment(s): RUQ abdmonial pain several times, no diagnoses, depression, insomnia History of Any Multi-Drug Resistant Organisms: None Reported Past Surgical History: Cholecystectomy, Orthopedic Surgery, Tubal Ligation Additional Past Surgical History / Comment(s): Right knee scope secondary to meniscal repair, tubal ligation, IUD removed Past Anesthesia/Blood Transfusion Reactions: No Reported Reaction Past Psychological History: Anxiety, Depression, PTSD Smoking Status: Never smoker Past Alcohol Use History: None Reported Past Drug Use History: Marijuana - Past Family History Mother Additional Family Medical History / Comment(s): Gallbladder disease General Exam Limitations: no limitations General appearance: alert, in no apparent distress Head exam: Present: atraumatic, normocephalic, normal inspection Eye exam: Present: normal appearance, PERRL, EOMI. Absent: scleral icterus, conjunctival injection, periorbital swelling ENT exam: Present: normal exam, mucous membranes moist Neck exam: Present: normal inspection, full ROM. Absent: tenderness, meningism us, lymphadenopathy Respiratory exam: Present: normal lung sounds bilaterally. Absent: respiratory distress, wheezes, rales, rhonchi, stridor Cardiovascular Exam: Present: regular rate, normal rhythm, normal heart sounds. Absent: systolic murmur, diastolic murmur, rubs, gallop, clicks GI/Abdominal exam: Present: soft, normal bowel sounds. Absent: distended, tenderness, guarding, rebound, rigid Course Vital Signs 09/04/20 09/04/20 14:48 18:50 Temperature 98.9 F Pulse Rate 101 H 94 Respiratory 18 18 Rate Blood Pressure 100/73 102/62 O2 Sat by Pulse 98 98 Oximetry EKG Findings - EKG Comments: EKG Findings:: Sinus tachycardia, ventricular rate 101, WI interval 158, QTC 422 Medical Decision Making - Medical Decision Making Vitals are stable. CBC CMP unremarkable. Urinalysis will be cultured however no urinary symptoms. EKG is nonischemic. Troponin negative. CT and a chest x- ray both show pulmonary infiltrates which are consistent with covid infection that patient has tested positive for outpatient on the night. CT is otherwise negative. Patient was given medications and continue to complain of this right upper quadrant pain. Patient states this has been ongoing for years and she had her gallbladder out because of this pain but it didn't help. States no one can figure this out. I recommended that she follow up with her primary care provider to discuss chronic pain. Patient was discharged home with Zofran for her nausea vomiting. - Lab Data Result diagrams: 09/04/20 15:20 09/04/20 15:20 Lab Results 09/04/20 09/04/20 09/04/20 Range/Units 15:20 15:20 15:20 WBC 5.6 (3.8-10.6) k/uL RBC 5.17 (3.80-5.40) m/uL Hgb 15.2 (11.4-16.0) gm/dL Hct 45.3 (34.0-46.0) % MCV 87.6 (80.0-100.0) fL MCH 29.3 (25.0-35.0) pg MCHC 33.5 (31.0-37.0) g/dL RDW 12.9 (11.5-15.5) % Plt Count 185 (150-450) k/uL MPV 7.3 Neutrophils % 68 % Lymphocytes % 23 % Monocytes % 6 % Eosinophils % 1 % Basophils % 1 % Neutrophils # 3.8 (1.3-7.7) k/uL Lymphocytes # 1.3 (1.0-4.8) k/uL Monocytes # 0.3 (0-1.0) k/uL Eosinophils # 0.1 (0-0.7) k/uL Basophils # 0.0 (0-0.2) k/uL Sodium 140 (137-145) mmol/L Potassium 3.9 (3.5-5.1) mmol/L Chloride 105 (98-107) mmol/L Carbon Dioxide 24 (22-30) mmol/L Anion Gap 11 mmol/L BUN 9 (7-17) mg/dL Creatinine 0.79 (0.52-1.04) mg/dL Est GFR (CKD-EPI)AfAm >90 (>60 ml/min/1.73 sqM) Est GFR (CKD-EPI)NonAf >90 (>60 ml/min/1.73 sqM) Glucose 85 (74-99) mg/dL Calcium 9.3 (8.4-10.2) mg/dL Total Bilirubin 0.4 (0.2-1.3) mg/dL AST 35 (14-36) U/L ALT 21 (4-34) U/L Alkaline Phosphatase 87 (38-126) U/L Troponin I (0.000-0.034) ng/mL Total Protein 7.8 (6.3-8.2) g/dL Albumin 4.3 (3.5-5.0) g/dL Amylase 57 (30-110) U/L Lipase 102 (23-300) U/L Urine Color Yellow Urine Appearance Cloudy H (Clear) Urine pH 6.0 (5.0-8.0) Ur Specific [place] 1.033 (1.001-1.035) Urine Protein 1+ H (Negative) Urine Glucose (UA) Negative (Negative) Urine Ketones Negative (Negative) Urine Blood Negative (Negative) Urine Nitrite Negative (Negative) Urine Bilirubin Negative (Negative) Urine Urobilinogen <2.0 (<2.0) mg/dL Ur Leukocyte Esterase Moderate H (Negative) Urine RBC 4 (0-5) /hpf Urine WBC 20 H (0-5) /hpf Ur Squamous Epith Cells 8 H (0-4) /hpf Urine Bacteria Occasional H (None) /hpf Urine Mucus Few H (None) /hpf 09/04/20 Range/Units 15:20 WBC (3.8-10.6) k/uL RBC (3.80-5.40) m/uL Hgb (11.4-16.0) gm/dL Hct (34.0-46.0) % MCV (80.0-100.0) fL MCH (25.0-35.0) pg MCHC (31.0-37.0) g/dL RDW (11.5-15.5) % Plt Count (150-450) k/uL MPV Neutrophils % % Lymphocytes % % Monocytes % % Eosinophils % % Basophils % % Neutrophils # (1.3-7.7) k/uL Lymphocytes # (1.0-4.8) k/uL Monocytes # (0-1.0) k/uL Eosinophils # (0-0.7) k/uL Basophils # (0-0.2) k/uL Sodium (137-145) mmol/L Potassium (3.5-5.1) mmol/L Chloride (98-107) mmol/L Carbon Dioxide (22-30) mmol/L Anion Gap mmol/L BUN (7-17) mg/dL Creatinine (0.52-1.04) mg/dL Est GFR (CKD-EPI)AfAm (>60 ml/min/1.73 sqM) Est GFR (CKD-EPI)NonAf (>60 ml/min/1.73 sqM) Glucose (74-99) mg/dL Calcium (8.4-10.2) mg/dL Total Bilirubin (0.2-1.3) mg/dL AST (14-36) U/L ALT (4-34) U/L Alkaline Phosphatase (38-126) U/L Troponin I <0.012 (0.000-0.034) ng/mL Total Protein (6.3-8.2) g/dL Albumin (3.5-5.0) g/dL Amylase (30-110) U/L Lipase (23-300) U/L Urine Color Urine Appearance (Clear) Urine pH (5.0-8.0) Ur Specific [place] (1.001-1.035) Urine Protein (Negative) Urine Glucose (UA) (Negative) Urine Ketones (Negative) Urine Blood (Negative) Urine Nitrite (Negative) Urine Bilirubin (Negative) Urine Urobilinogen (<2.0) mg/dL Ur Leukocyte Esterase (Negative) Urine RBC (0-5) /hpf Urine WBC (0-5) /hpf Ur Squamous Epith Cells (0-4) /hpf Urine Bacteria (None) /hpf Urine Mucus (None) /hpf Disposition Clinical Impression: COVID-19, Chronic abdominal pain, Pneumonia due to COVID-19 virus Disposition: HOME SELF-CARE Condition: Good Instructions (If sedation given, give patient instructions): Acute Nausea and Vomiting (ED) Additional Instructions: Please take Zofran as needed for nausea. Follow-up with your doctor. Return to the emergency room for any worsening symptoms. Prescriptions: Ondansetron [Zofran ODT] 4 mg PO Q8HR PRN #15 tab PRN Reason: Nausea Is patient prescribed a controlled substance at d/c from ED?: No Referrals: Genna Lyles MD [Medical Doctor] - 1-2 days Time of Disposition: 18:38
[2020-09-04 15:39] LABS: Basophils % (A) 1 %; Eosinophils # (A) 0.1 k/uL (0-0.7); Eosinophils % (A) 1 %; HCT 45.3 % (34.0-46.0); HGB 15.2 gm/dL (11.4-16.0); Lymphocytes # (A) 1.3 k/uL (1.0-4.8); Lymphocytes % (A) 23 %; MCH 29.3 pg (25.0-35.0); MCHC 33.5 g/dL (31.0-37.0); MCV 87.6 fL (80.0-100.0); Mean Platelet Volume 7.3; Monocytes # (A) 0.3 k/uL (0-1.0); Monocytes % (A) 6 %; Neutrophils # (A) 3.8 k/uL (1.3-7.7); Neutrophils % (A) 68 %; Platelet Count 185 k/uL (150-450); RBC 5.17 m/uL (3.80-5.40); RDW 12.9 % (11.5-15.5); WBC 5.6 k/uL (3.8-10.6)
[2020-09-04 15:43] LABS: Appearance,Urine Cloudy (Clear); Bacteria,Urine Occasional /hpf; Bilirubin,Urine Negative (Negative); Blood,Urine Negative (Negative); Color,Urine Yellow; Glucose,Urine (UA) Negative (Negative); Ketones,Urine Negative (Negative); Leukocyte Esterase,Urine Moderate (Negative); Mucus,Urine Few /hpf; Nitrite,Urine Negative (Negative); Protein,Urine 1+ (Negative); RBC,Urine 4 /hpf (0-5); Specific Gravity,Urine 1.033 (1.001-1.035); Squamous Epithelial Cell,Urine 8 /hpf (0-4); Urobilinogen,Urine <2.0 mg/dL (<2.0); WBC,Urine 20 /hpf (0-5)
[2020-09-04 15:49] LABS: ALT 21 U/L (4-34); AST 35 U/L (14-36); African American GFR (CKD) >90 (>60 ml/min/1.73 sqM); Albumin 4.3 g/dL (3.5-5.0); Alkaline Phosphatase 87 U/L (38-126); Amylase 57 U/L (30-110); Anion Gap 11 mmol/L; Blood Urea Nitrogen 9 mg/dL (7-17); Calcium 9.3 mg/dL (8.4-10.2); Carbon Dioxide 24 mmol/L (22-30); Chloride 105 mmol/L (98-107); Glucose 85 mg/dL (74-99); Lipase 102 U/L (23-300); Non-African American GFR(CKD) >90 (>60 ml/min/1.73 sqM); Potassium 3.9 mmol/L (3.5-5.1); Sodium 140 mmol/L (137-145); Total Bilirubin 0.4 mg/dL (0.2-1.3); Total Protein 7.8 g/dL (6.3-8.2)
[2020-09-04] MEDS ORDERED: diphenhydrAMINE 50 MG/ML 1 ML VIAL IVP STA (16:10)
[2020-09-04] MEDS ORDERED: METOCLOPRAMIDE 5 MG/ML 2 ML VIAL IVP STA (16:10)
--- NOTE | 2020-09-04 16:15 | XR ---
EXAMINATION TYPE: XR chest 1V portable DATE OF EXAM: 09/04/2020 COMPARISON: 09/08/2018 HISTORY: Cough TECHNIQUE: FINDINGS: Heart and mediastinum are normal. There is small areas of increased density over the left m idlung field peripherally that could be minimal infiltrate. The right lung is clear. There are no hil ar masses. There is no pleural effusion. Bony thorax is intact. IMPRESSION: Possible minimal infiltrate in the periphery of the left midlung that is a change compare d to old exam.
[2020-09-04] MEDS ORDERED: MORPHINE SULFATE 4 MG/ML SYRINGE IVP STA (16:18)
--- NOTE | 2020-09-04 17:13 | CT ---
EXAMINATION TYPE: CT abdomen pelvis w con DATE OF EXAM: 09/04/2020 COMPARISON: 04/25/2020 HISTORY: abdominal pain, nausea, vomiting, covid CT DLP: 1002 mGycm Automated exposure control for dose reduction was used. CONTRAST: Performed with IV Contrast, patient injected with 100 mL of Isovue 300. Images obtained from the diaphragm to the floor the pelvis with IV contrast. There is some patchy airspace peripheral pulmonary infiltrates at the lung bases bilaterally. There i s no pleural effusion. Heart size is normal. There is no pericardial effusion. Liver spleen stomach pancreas appear intact. Bile ducts are not dilated. There is no adrenal mass. Kidneys show satisfactory contrast opacification. There is no hydronephrosi s. Ureters are not dilated. There is no retroperitoneal adenopathy. The bladder distends smoothly. Ut erus is anteverted. There is 2 cm cyst on the left ovary. There is no free fluid in the pelvis. There is no mesenteric edema. There is no ascites or free air. There is no bowel obstruction. The renee endix appears normal. There is no intestinal wall thickening. The delayed images show normal renal ex cretion. The lumbar vertebra show normal alignment. There is no compression fracture. The posterior elements a re intact. The bony pelvis is intact. Hip joints are intact. IMPRESSION: There are bilateral lower lobe pulmonary patchy airspace infiltrates consistent with multifocal pneum onia. Otherwise Negative CT scan of the abdomen pelvis. Normal appendix. No adverse change in the abdomen c ompared to old exam.
[2020-09-04] MEDS ORDERED: HALOPERIDOL LACTATE 5 MG/ML 1 ML VIAL IVP STA (17:44)
[2020-09-04 18:50] VITALS: BP 102/62; PULSE 94
== END 2020-09-04 18:58 | disposition home or self-care (01) ==
LOC: EC 14:45
DX: U07.1 COVID-19 (principal); J12.82 Pneumonia due to coronavirus disease 2019; G89.29 Other chronic pain; R10.9 Unspecified abdominal pain; Z79.899 Other long term (current) drug therapy; Z88.2 Allergy status to sulfonamides; Z90.49 Acquired absence of other specified parts of digestive tract
CPT/HCPCS: 36415; 93005; 80053; 82150; 83690; 84484; 85025; 81001; 87086; 71045; 74177; 99284; 96374; 96375; 96361; J2270; J1200; J1630; J2765; J2405; J1885; Q9967